=== PATIENT | female | born 1975 | race Caucasian/White ===

== ENCOUNTER 2016-08-04 23:43 | Emergency (ER) | payer MEDICAID ==
[~2016-08-04] VITALS: Ht 168.9 cm; Wt 83.6 kg
[~2016-08-04 23:43] MED LIST: AGM875T PO; ALBU2.5V4 IH; AMOX500T2 PO; ATEN50TA PO; CEFD300C3 PO; CEPH500C PO; CYCL10TA45 PO; CYCL10TA9 PO; DCS100C PO; DICL75TA2 PO; GABA-488 PO; HYDR-34 PO; HYDR-3583 PO; HYDR-3714 PO; HYDR115S2 PO; NITR-65 PO; ONDA8TAB13 PO; PANT40TA2 PO; PHEN100T17 PO; PHEN100T26 PO; PRD20T PO; QTP25T PO; RT-ALBUINH IH; SUCR1TAB36 PO; TOPI100T PO; TRAM50TA2 PO
[2016-08-05 01:53] LABS: BASOPHILS # (AUTO) 0.1 10^3/uL (0.0-0.1); BASOPHILS % (AUTO) 1 % (0-10); EOSINOPHILS # (AUTO) 0.1 10^3/uL (0.0-0.3); EOSINOPHILS % (AUTO) 1 % (0-10); LYMPHOCYTES # (AUTO) 2.2 X 10^3 (1.0-4.0); LYMPHOCYTES % (AUTO) 23 % (12-44); MEAN CORPUSCULAR HEMOGLOBIN 33 PG (25-34); MEAN CORPUSCULAR HGB CONC 36 G/DL (32-36); MEAN CORPUSCULAR VOLUME 91 FL (80-99); MONOCYTES # (AUTO) 0.7 X 10^3 (0.0-1.0); MONOCYTES % (AUTO) 8 % (0-12); NEUTROPHILS # (AUTO) 6.4 X 10^3 (1.8-7.8); NEUTROPHILS % (AUTO) 68 % (42-75); PLATELET COUNT 159 10^3/uL (130-400); RED CELL DISTRIBUTION WIDTH 12.3 % (10.0-14.5); WHITE BLOOD COUNT 9.5 10^3/uL (4.3-11.0)
[2016-08-05 02:15] LABS: ALANINE AMINOTRANSFERASE 35 U/L (0-55); ALBUMIN 4.4 G/DL (3.2-4.5); ALCOHOL 10 MG/DL (<10); ANION GAP 13 MMOL/L (5-14); ASPARTATE AMINO TRANSFERASE 28 U/L (5-34); BILIRUBIN,TOTAL 0.4 MG/DL (0.1-1.0); BLOOD UREA NITROGEN 12 MG/DL (7-18); BUN/CREATININE RATIO 16; CALCIUM 9.5 MG/DL (8.5-10.1); CARBON DIOXIDE 20 MMOL/L (21-32); CHLORIDE 108 MMOL/L (98-107); CREATININE SERUM 0.77 MG/DL (0.60-1.30); GFR ESTIMATED > 60; GLUCOSE 97 MG/DL (70-105); POTASSIUM 3.9 MMOL/L (3.6-5.0); SALICYLATE < 5.0 MG/DL (5.0-20.0); SODIUM 141 MMOL/L (135-145); TOTAL PROTEIN 7.1 G/DL (6.4-8.2)
[2016-08-05 02:25] LABS: ACETAMINOPHEN < 10 UG/ML (10-30)
[2016-08-05 04:15] LABS: BILIRUBIN,URINE NEGATIVE (NEGATIVE); KETONES,URINE NEGATIVE (NEGATIVE); LEUKOCYTE ESTERASE ,URINE 1+ (NEGATIVE); NITRITE,URINE NEGATIVE (NEGATIVE); PH,URINE 6 (5-9); PROTEIN,URINE NEGATIVE (NEGATIVE); UROBILINOGEN,URINE NORMAL (NORMAL)
[2016-08-05 04:21] LABS: WBC,URINE RARE /HPF
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
[2016-08-05 05:55] VITALS: BP 134/100
== END 2016-08-05 05:55 | disposition home or self-care (01) ==
LOC: EDUNIT# 23:43 → ER 23:47
DX: R45.851 Suicidal ideations (principal); M06.9 Rheumatoid arthritis, unspecified; Z79.82 Long term (current) use of aspirin; Z79.899 Other long term (current) drug therapy
CPT/HCPCS: 36415; 80053; 80306; 80320; 80329; 81000; 84443; 85025; 99285

== ENCOUNTER 2017-04-26 20:31 | Emergency (ER) | payer MEDICAID ==
--- OUTSIDE RECORDS SUMMARY | 2017-04-28 09:30 | XMS REPORT ---
Author Author CARLI FAIR [facility] Address [address] [place] [address] Care Team Providers Care Continuous Dryout Operator Name Role Phone CARLI FAIR Unavailable PROBLEMS Type Condition ICD9-CM Code AKS16-RO Code Onset Dates Condition Status SNOMED Code Problem Low back pain M54.5 Active 297394986 Problem Vitamin D deficiency E55.9 Active 13820215 Problem Chronic intractable headache, unspecified headache type R51 Active 24899224 Problem Barretts esophagus without dysplasia K22.70 Active 701319478 Problem Fatigue R53.83 Active 19175706 Problem Essential hypertension, hypertension with unspecified goal I10 Active 71433923 Problem Tobacco abuse Z72.0 Active 868886277 Problem Depression with anxiety F41.8 Active 771285374 Problem Lower abdominal pain R10.30 Active 55154551 Problem Frequent headaches R51 Active 74261945 Problem Screening breast examination Z12.39 Active 270870344 Problem Chronic diarrhea K52.9 Active 836525505 ALLERGIES Substance Reaction Event Type Date Status Imitrex Unknown Drug Allergy Mar, Active Erythromycin Base Unknown Drug Allergy Mar, Active Aspirin Unknown Drug Allergy Mar, Active Tramadol Unknown Drug Allergy Mar, Active SOCIAL HISTORY No smoking Hx information available PLAN OF CARE Activity Details Follow Up 4 Weeks Reason: med VITAL SIGNS Height 66 in 2016-03-21 Weight 192.5 lbs 2016-03-21 Temperature 99.2 degrees Fahrenheit 2016-03-21 Heart Rate 80 bpm 2016-03-21 Respiratory Rate 16 2016-03-21 BMI 31.07 kg/m2 2016-03-21 Blood pressure systolic 128 mmHg 2016-03-21 Blood pressure diastolic 82 mmHg 2016-03-21 MEDICATIONS Medication Instructions Dosage Frequency Start Date End Date Duration Status Clonazepam 0.5 MG Orally Twice a day pm 1 tablet Mar, 28 days Active Topamax 200 MG Orally Twice a day 1 tablet 12h Active Nicotine 21 MG/24HR Transdermal Once a day 1 patch to skin 24h Apr, 30 day(s) Active RESULTS Name Result Date Reference Range AMERITOX 2016-03-21 PROCEDURES Procedure Date Ordered Related Diagnosis Body Site Office Visit, Est Pt., Level 4 Mar 21, 2016 No Charge Mar 21, 2016 IMMUNIZATIONS No Known Immunizations
--- OUTSIDE RECORDS SUMMARY | 2017-04-28 09:30 | XMS REPORT ---
Author Author CARLI FAIR [facility] Address [address] [place] [address] Care Team Providers Care Power Saw Mechanic Name Role Phone CARLI FAIR Unavailable PROBLEMS Type Condition ICD9-CM Code FMA39-QD Code Onset Dates Condition Status SNOMED Code Problem Vitamin D deficiency E55.9 Active 52428741 Problem Low back pain M54.5 Active 028726759 Problem Chronic intractable headache, unspecified headache type R51 Active 15453713 Problem Barretts esophagus without dysplasia K22.70 Active 920274814 Problem Essential hypertension, hypertension with unspecified goal I10 Active 43803401 Problem Fatigue R53.83 Active 99541174 Problem Tobacco abuse Z72.0 Active 150673458 Problem Depression with anxiety F41.8 Active 697744492 Problem Screening breast examination Z12.39 Active 193356402 Problem Frequent headaches R51 Active 90570006 Problem Chronic diarrhea K52.9 Active 256635503 Problem Lower abdominal pain R10.30 Active 84167787 ALLERGIES Substance Reaction Event Type Date Status Imitrex Unknown Drug Allergy Apr, Active Erythromycin Base Unknown Drug Allergy Apr, Active Aspirin Unknown Drug Allergy Apr, Active Tramadol Unknown Drug Allergy Apr, Active SOCIAL HISTORY No smoking Hx information available PLAN OF CARE Activity Details Follow Up 4 Weeks Reason: Med VITAL SIGNS Height 66 in 2016-04-18 Weight 190.6 lbs 2016-04-18 Temperature 98.1 degrees Fahrenheit 2016-04-18 Heart Rate 80 bpm 2016-04-18 Respiratory Rate 18 2016-04-18 BMI 30.76 kg/m2 2016-04-18 Blood pressure systolic 110 mmHg 2016-04-18 Blood pressure diastolic 67 mmHg 2016-04-18 MEDICATIONS Medication Instructions Dosage Frequency Start Date End Date Duration Status Clonazepam 0.5 MG Orally Twice a day pm 1 tablet 28 days Active Topamax 200 MG Orally Twice a day 1 tablet 12h Active Pantoprazole Sodium 20 MG Orally Once a day 2 tablets 24h Active RESULTS No Results PROCEDURES Procedure Date Ordered Related Diagnosis Body Site Office Visit, Est Pt., Level 3 Apr 18, 2016 IMMUNIZATIONS No Known Immunizations
--- OUTSIDE RECORDS SUMMARY | 2017-04-28 09:31 | XMS REPORT ---
Author Author LEV CRUMP Organization [facility] Address [address] [place] [address] Care Team Providers Care Audiovisual Technician Name Role Phone LEV CRUMP Unavailable PROBLEMS Type Condition ICD9-CM Code OME85-CI Code Onset Dates Condition Status SNOMED Code Problem Vitamin D deficiency E55.9 Active 66190667 Problem Low back pain M54.5 Active 508586371 Problem Chronic intractable headache, unspecified headache type R51 Active 59422840 Problem Barretts esophagus without dysplasia K22.70 Active 373044770 Problem Essential hypertension, hypertension with unspecified goal I10 Active 44292133 Problem Fatigue R53.83 Active 84994739 Problem Tobacco abuse Z72.0 Active 280624633 Problem Depression with anxiety F41.8 Active 239050425 Problem Screening breast examination Z12.39 Active 434371051 Problem Frequent headaches R51 Active 15300951 Problem Chronic diarrhea K52.9 Active 767445166 Problem Lower abdominal pain R10.30 Active 74340840 ALLERGIES Substance Reaction Event Type Date Status Imitrex Unknown Drug Allergy May, Active Erythromycin Base Unknown Drug Allergy May, Active Aspirin Unknown Drug Allergy May, Active Tramadol Unknown Drug Allergy May, Active SOCIAL HISTORY Never Assessed PLAN OF CARE Activity Details Follow Up prn Reason: VITAL SIGNS Height 66 in 2016-05-25 Weight 188.4 lbs 2016-05-25 Temperature 98.4 degrees Fahrenheit 2016-05-25 Heart Rate 84 bpm 2016-05-25 Respiratory Rate 18 2016-05-25 BMI 30.41 kg/m2 2016-05-25 Blood pressure systolic 128 mmHg 2016-05-25 Blood pressure diastolic 74 mmHg 2016-05-25 MEDICATIONS Medication Instructions Dosage Frequency Start Date End Date Duration Status Clonazepam 0.5 MG Orally Twice a day pm 1 tablet 28 days Active Flonase Allergy Relief 50 MCG/ACT Nasally Once a day 1 spray in each nostril 24h May, 30 day(s) Active Topamax 200 MG Orally Twice a day 1 tablet 12h Active Cetirizine HCl 10 MG Orally Once a day 1 tablet 24h 24 May, 2016 May, 30 day(s) Active Pantoprazole Sodium 20 MG Orally Once a day 2 tablets 24h Active RESULTS Name Result Date Reference Range STREP A (IN HOUSE) 2016-05-25 STREP A negative Control + Lot # [id number] Exp date dec 17 PROCEDURES Procedure Date Ordered Result Body Site STREP A ASSAY W/OPTIC May 25, 2016 IMMUNIZATIONS No Known Immunizations MEDICAL (GENERAL) HISTORY Type Description Date Medical History hypertension Medical History post cholecystectomy symdrome 1990 Medical History thyroid disorder Medical History orthopeadic disorder scoliosis Medical History headache syndromes Medical History -- went in for ad D/C rec'd 4 inits of blood due to bleeding Medical History Lumbago Medical History Lumbago Medical History Displacement of lumbar intervertebral disc without myelopathy Medical History Barretts Esophagus Superior with EGD Colonoscopy Surgical History hysterectomy abnormal cells and fibroids 2011 Surgical History appendectomy 2012 Surgical History dilatation and curettage and dental surgery 2008 Surgical History cystocele repair 2014 Surgical History bladder surgery pelvic sling 2012 Surgical History Oophorectomy 2012 Surgical History dental surgery teeth extractions Surgical History EGD/Colonoscopy 2015 Hospitalization History Pnuemonia 1996
--- OUTSIDE RECORDS SUMMARY | 2017-04-28 09:31 | XMS REPORT | Continuity of Care Document ---
Author Author [facility] Address Unknown Phone Unavailable Allergies Active Description Code Type Severity Reaction Onset Reported/Identified Relationship to Patient Clinical Status Yes aspirin [id number] Drug Allergy Unknown PATIENT TAKES M 06/10/2007 Yes aspirin Drug Allergy N/A N/A 09/04/2012 Yes Erythromycin Base Drug Allergy N/A N/A 09/04/2012 Yes erythromycin base [id number] Drug Allergy Unknown N/A 09/21/2012 Yes sumatriptan [id number] Drug Allergy Unknown N/A 09/21/2012 Yes sumatriptan succinate [id number] Drug Allergy Unknown N/A 09/21/2012 Yes venom-wasp [id number] Drug Allergy Unknown N/A 10/21/2013 Yes wasp venom [id number] Drug Allergy Unknown N/A 10/21/2013 Yes tramadol Drug Allergy N/A N/A 02/11/2014 Yes tramadol [id number] Drug Allergy Unknown VOMITING 09/23/2014 Yes sumatriptan [id number] Drug Allergy Mild NAUSEA 08/01/2015 Yes sumatriptan succinate [id number] Drug Allergy Mild NAUSEA 08/01/2015 Medications There is no data. Problems Date Dx Coded Attending Type Code Diagnosis Diagnosed By 09/04/2012 719.47 PAIN- ANKLE 09/04/2012 719.47 PAIN- ANKLE 09/04/2012 SHRUTI MOURA DDS 719.47 PAIN- ANKLE 09/04/2012 MADL BRAKE OPERATOR SHEET METAL, CARLI L 719.47 PAIN- ANKLE 09/04/2012 MADL BRAKE OPERATOR SHEET METAL, CARLI L 719.47 PAIN- ANKLE 09/04/2012 MADL BRAKE OPERATOR SHEET METAL, CARLI L 719.47 PAIN- ANKLE 09/04/2012 MADL BRAKE OPERATOR SHEET METAL, CARLI L 719.47 PAIN- ANKLE 09/04/2012 MADL BRAKE OPERATOR SHEET METAL, CARLI L 719.47 PAIN- ANKLE 09/04/2012 MADL BRAKE OPERATOR SHEET METAL, CARLI L 719.47 PAIN- ANKLE 09/04/2012 KAMALJIT IANZACK 719.47 PAIN- ANKLE 09/22/2012 MILAGRO TO, DERRELL Padilla Ot 276.9 ELECTROLYT/FLUID DIS NEC 09/22/2012 MILAGRO TO, DERRELL Padilla Ot 305.1 TOBACCO USE DISORDER 09/22/2012 DERRELL HUMPHREY MD Ot 401.9 HYPERTENSION NOS 09/22/2012 DERRELL HUMPHREY MD Ot 530.81 ESOPHAGEAL REFLUX 09/22/2012 DERRELL HUMPHREY MD Ot 540.9 ACUTE APPENDICITIS NOS 06/07/2013 BLANK CRUM Ot 300.00 ANXIETY STATE NOS 06/07/2013 BLANK CRUM Ot 599.0 URIN TRACT INFECTION NOS 06/07/2013 BLANK CRUM Ot 719.41 JOINT PAIN-SHLDER 06/07/2013 BLANK CRUM Ot 719.45 JOINT PAIN-PELVIS 06/07/2013 BLANK CRUM Ot 723.1 CERVICALGIA 06/07/2013 BLANK CRUM Ot 729.1 MYALGIA AND MYOSITIS NOS 06/07/2013 BLANK CRUM Ot 729.5 PAIN IN LIMB 06/07/2013 BLANK CRUM Ot 784.0 HEADACHE 06/07/2013 BLANK CRUM Ot 789.09 ABDOMINAL PAIN, OTHER SPECIFIED SITE 06/07/2013 BLANK CRUM Ot 848.9 SPRAIN NOS 06/07/2013 BLANK CRUM Ot E000.8 OTHER EXTERNAL CAUSE STATUS 06/07/2013 BLANK CRUM Ot E849.0 ACCIDENT IN HOME 06/07/2013 BLANK CRUM Ot E928.9 ACCIDENT NOS 10/21/2013 JADA JOHANSEN BRAKE OPERATOR SHEET METAL Ot 989.5 TOXIC EFFECT VENOM 10/21/2013 JADA JOHANSEN BRAKE OPERATOR SHEET METAL Ot E905.3 HORNET/WASP/BEE STING 11/06/2013 JADA JOHANSEN BRAKE OPERATOR SHEET METAL Ot 521.00 UNSPEC DENTAL CARIES 11/06/2013 JADA JOHANSEN BRAKE OPERATOR SHEET METAL Ot 525.9 DENTAL DISORDER NOS 12/09/2013 BLANK CRUM Ot 300.00 ANXIETY STATE NOS 12/09/2013 BLANK CRUM Ot 305.1 TOBACCO USE DISORDER 12/09/2013 BLANK CRUM Ot 401.9 HYPERTENSION NOS 12/09/2013 BLANK CRUM Ot 465.9 ACUTE URI NOS 12/09/2013 BLANK CRUM Ot 530.81 ESOPHAGEAL REFLUX 12/09/2013 BLANK CRUM Ot 599.0 URIN TRACT INFECTION NOS 12/09/2013 BLANK CRUM Ot 780.60 FEVER, UNSPECIFIED 02/11/2014 MADL BRAKE OPERATOR SHEET METAL, CARLI L 599.0 URINARY TRACT INFECTION 02/11/2014 MADL BRAKE OPERATOR SHEET METAL, CARLI L 599.0 URINARY TRACT INFECTION 02/11/2014 MADL BRAKE OPERATOR SHEET METAL, CARLI L 599.0 URINARY TRACT INFECTION 02/11/2014 MADL BRAKE OPERATOR SHEET METAL, CARLI L 599.0 URINARY TRACT INFECTION 02/11/2014 MADL BRAKE OPERATOR SHEET METAL, CARLI L 599.0 URINARY TRACT INFECTION 02/11/2014 MADL BRAKE OPERATOR SHEET METAL, CARLI L 599.0 URINARY TRACT INFECTION 02/11/2014 KAMALJIT BRAKE OPERATOR SHEET METAL, ZACK A 599.0 URINARY TRACT INFECTION 04/01/2014 BLANK CRUM Ot 599.0 URIN TRACT INFECTION NOS 04/01/2014 BLANK CRUM Ot 724.4 LUMBOSACRAL NEURITIS NOS 04/01/2014 BLANK CRUM Ot 850.0 CONCUSSION W/O COMA 04/01/2014 BLANK CRUM Ot 959.01 HEAD INJURY, NOS 04/01/2014 BLANK CRUM Ot E000.8 OTHER EXTERNAL CAUSE STATUS 04/01/2014 BLANK CRUM Ot E849.0 ACCIDENT IN HOME 04/01/2014 BLANK CRUM Ot E885.9 FALL FROM SLIPPING, TRIPPING, OR STUMBLI 04/14/2014 CARLI FAIR APRN L 623.5 LEUKORRHEA NOT SPECIFIED INFECTIVE 04/14/2014 CIARAN FAIR APRNA L 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 04/14/2014 CIARAN FAIR APRNA L 724.2 BACK PAIN, LOWER 04/14/2014 MADL BRAKE OPERATOR SHEET METAL, CARLI L 623.5 LEUKORRHEA NOT SPECIFIED INFECTIVE 04/14/2014 MADL BRAKE OPERATOR SHEET METAL, CARLI L 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 04/14/2014 MADL BRAKE OPERATOR SHEET METAL, CARLI L 724.2 BACK PAIN, LOWER 04/14/2014 MADL BRAKE OPERATOR SHEET METAL, CARLI L 623.5 LEUKORRHEA NOT SPECIFIED INFECTIVE 04/14/2014 MADL BRAKE OPERATOR SHEET METAL, CARLI L 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 04/14/2014 MADL BRAKE OPERATOR SHEET METAL, CARLI L 724.2 BACK PAIN, LOWER 04/14/2014 MADL BRAKE OPERATOR SHEET METAL, CARLI L 623.5 LEUKORRHEA NOT SPECIFIED INFECTIVE 04/14/2014 MADL BRAKE OPERATOR SHEET METAL, CARLI L 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 04/14/2014 MADL BRAKE OPERATOR SHEET METAL, CARLI L 724.2 BACK PAIN, LOWER 04/14/2014 KAMALJIT IAN, ZACK A 623.5 LEUKORRHEA NOT SPECIFIED INFECTIVE 04/14/2014 KAMALJIT BRAKE OPERATOR SHEET METAL, ZACK A 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 04/14/2014 KAMALJIT IAN, ZACK A 724.2 BACK PAIN, LOWER 04/21/2014 MADL, 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 Ot 722.10 05/12/2014 MADL BRAKE OPERATOR SHEET METAL, CARLI L 789.09 ABDOMINAL PAIN OTHER SPECIFIED SITE 05/12/2014 MADL BRAKE OPERATOR SHEET METAL, CARLI L 789.09 ABDOMINAL PAIN OTHER SPECIFIED SITE 05/12/2014 KAMALJIT IAN, ZACK A 789.09 ABDOMINAL PAIN OTHER SPECIFIED SITE 05/26/2014 MADL, 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 Ot 722.10 07/07/2014 MADL BRAKE OPERATOR SHEET METAL, CARLI L 788.30 URINARY INCONTINENCE UNSPECIFIED 07/07/2014 KAMALJIT APRN, ZACK A 788.30 URINARY INCONTINENCE UNSPECIFIED 07/12/2014 KAMALJIT IAN, ZACK A 618.01 CYSTOCELE MIDLINE 07/12/2014 KAMALJIT IAN, ZACK A 789.00 ABDOMINAL PAIN UNSPECIFIED SITE 07/12/2014 ZACK MARI APRN V74.5 STD SCREEN 08/17/2014 MARTELL TO, TK Ontiveros Ot 724.1 08/17/2014 MARTELL TO, TK Ontiveros Ot 737.30 09/13/2014 TK MOURA MD Ot 724.1 09/13/2014 MARTELL TO, TK Ontiveros Ot 737.30 10/01/2014 FENECH DO, LASHON S Ot 564.00 UNSPEC CONSTIPATION 10/01/2014 FENECH DO, LASHON S Ot 618.2 UTEROVAG PROLAPS-INCOMPL 10/20/2014 FENECH DO, LASHON S Ot 618.01 10/20/2014 FENECH DO, LASHON S Ot V72.63 10/20/2014 FENECH DO, LASHON S Ot V74.8 12/08/2014 [facility] S Ot 611.72 12/15/2014 MICHELLE TO, ANNEL Gasca Ot 466.0 ACUTE BRONCHITIS 12/15/2014 MICHELLE TO, ANNEL Gasca Ot 473.9 CHRONIC SINUSITIS NOS 12/15/2014 MICHELLE TO, ANNEL Gasca Ot 786.2 COUGH 07/23/2015 RAMIN TO, GEORGE Padilla Ot F17.210 NICOTINE DEPENDENCE, CIGARETTES, UNCOMPL 07/23/2015 RAMIN TO, GEORGE Padilla Ot G43.909 MIGRAINE, UNSP, NOT INTRACTABLE, WITHOUT 07/26/2015 GEORGE FAUSTIN MD Ot G43.909 MIGRAINE, UNSP, NOT INTRACTABLE, WITHOUT 08/01/2015 ANNEL MARTINEZ MD Ot F17.210 NICOTINE DEPENDENCE, CIGARETTES, UNCOMPL 08/01/2015 ANNEL MARTINEZ MD Ot G43.909 MIGRAINE, UNSP, NOT INTRACTABLE, WITHOUT 08/01/2015 ANNEL MARTINEZ MD Ot R20.2 PARESTHESIA OF SKIN 08/03/2015 ANNEL MARTINEZ MD Ot F17.210 NICOTINE DEPENDENCE, CIGARETTES, UNCOMPL 08/03/2015 ANNEL MARTINEZ MD Ot G43.909 MIGRAINE, UNSP, NOT INTRACTABLE, WITHOUT 08/03/2015 ANNEL MARTINEZ MD Ot R20.2 PARESTHESIA OF SKIN 10/20/2015 CIARAN FAIRA L ENTRY LEVEL CIVIL ENGINEER Ot 722.10 LUMBAR DISC DISPLACEMENT 10/20/2015 TK MOURA MD Ot 724.1 PAIN IN THORACIC SPINE 10/20/2015 TK MOURA MD Ot 737.30 IDIOPATHIC SCOLIOSIS 10/20/2015 LASHON CALVO DO Ot 618.01 CYSTOCELE, MIDLINE 10/20/2015 LASHON CALVO DO S Ot V72.63 PRE-PROCEDURAL LABORATORY EXAMINATION 10/20/2015 LASHON CALVO DO S Ot V74.8 SCREEN-BACTERIAL DIS NEC 10/20/2015 LASHON CALVO DO S Ot 611.72 LUMP OR MASS IN BREAST 11/15/2015 LASHON CALVO DO S Ot N94.9 UNSP COND ASSOC W FEMALE GENITAL ORGANS 11/15/2015 LUBNA HOUSTON LASHON S Ot R14.0 ABDOMINAL DISTENSION (GASEOUS) 11/23/2015 CARLI FAIR ENTRY LEVEL CIVIL ENGINEER Ot Z12.31 ENCNTR SCREEN MAMMOGRAM FOR MALIGNANT NE 12/02/2015 RENÉE LEON DO Ot K21.9 GASTRO-ESOPHAGEAL REFLUX DISEASE WITHOUT 12/02/2015 RENÉE LEON DO Ot R19.7 DIARRHEA, UNSPECIFIED 12/02/2015 RENÉE LEON DO Ot Z01.818 ENCOUNTER FOR OTHER PREPROCEDURAL EXAMIN 12/06/2015 RENÉE LEON DO Ot K21.9 GASTRO-ESOPHAGEAL REFLUX DISEASE WITHOUT 12/06/2015 RENÉE LEON DO Ot R19.7 DIARRHEA, UNSPECIFIED 12/06/2015 RENÉE LEON DO Ot Z01.818 ENCOUNTER FOR OTHER PREPROCEDURAL EXAMIN 12/06/2015 RENÉE LEON DO Ot K20.9 ESOPHAGITIS, UNSPECIFIED 12/06/2015 RENÉE LEON DO Ot K29.70 GASTRITIS, UNSPECIFIED, WITHOUT BLEEDING 12/06/2015 RENÉE LEON DO Ot K44.9 DIAPHRAGMATIC HERNIA WITHOUT OBSTRUCTION 12/06/2015 RENÉE LEON DO Ot K52.9 NONINFECTIVE GASTROENTERITIS AND COLITIS 12/07/2015 RENÉE LEON DO Ot K20.9 ESOPHAGITIS, UNSPECIFIED 12/07/2015 RENÉE LEON DO Ot K29.70 GASTRITIS, UNSPECIFIED, WITHOUT BLEEDING 12/07/2015 RENÉE LEON DO Ot K44.9 DIAPHRAGMATIC HERNIA WITHOUT OBSTRUCTION 12/07/2015 LEON DO, RENÉE Soalno Ot K52.9 NONINFECTIVE GASTROENTERITIS AND COLITIS 12/16/2015 LEON DO, RENÉE Solano Ot K20.9 ESOPHAGITIS, UNSPECIFIED 12/16/2015 LEON DO, RENÉE Solano Ot K29.70 GASTRITIS, UNSPECIFIED, WITHOUT BLEEDING 12/16/2015 LEONRENÉE HURST DO Ot K44.9 DIAPHRAGMATIC HERNIA WITHOUT OBSTRUCTION 12/16/2015 LEON DO, RENÉE Solano Ot K52.9 NONINFECTIVE GASTROENTERITIS AND COLITIS 12/20/2015 CARLI FAIR Ot Z12.31 ENCNTR SCREEN MAMMOGRAM FOR MALIGNANT NE 02/08/2016 PREET GENTILE DO Ot F17.210 NICOTINE DEPENDENCE, CIGARETTES, UNCOMPL 02/08/2016 PREET GENTILE DO Ot J02.9 ACUTE PHARYNGITIS, UNSPECIFIED 02/08/2016 PREET GENTILE DO Ot J32.9 CHRONIC SINUSITIS, UNSPECIFIED 02/08/2016 PREET GENTILE DO Ot J40 BRONCHITIS, NOT SPECIFIED ACUTE OR CH 02/09/2016 PREET GENTILE DO Ot F17.210 NICOTINE DEPENDENCE, CIGARETTES, UNCOMPL 02/09/2016 PREET GENTILE DO Ot J02.9 ACUTE PHARYNGITIS, UNSPECIFIED 02/09/2016 PREET GENTILE DO Ot J32.9 CHRONIC SINUSITIS, UNSPECIFIED 02/09/2016 PREET GENTILE DO Ot J40 BRONCHITIS, NOT SPECIFIED ACUTE OR CH 02/10/2016 PREET GENTILE DO Ot F17.210 NICOTINE DEPENDENCE, CIGARETTES, UNCOMPL 02/10/2016 PREET GENTILE DO Ot J02.9 ACUTE PHARYNGITIS, UNSPECIFIED 02/10/2016 PREET GENTILE DO Ot J32.9 CHRONIC SINUSITIS, UNSPECIFIED 02/10/2016 PREET GENTILE DO, Ot J40 BRONCHITIS, NOT SPECIFIED ACUTE OR CH 02/13/2016 CARLI FAIR Ot 722.10 LUMBAR DISC DISPLACEMENT 02/13/2016 TK MOURA MD Ot 724.1 PAIN IN THORACIC SPINE 02/13/2016 TK MOURA MD Ot 737.30 IDIOPATHIC SCOLIOSIS 02/13/2016 LASHON CALVO DO Ot 618.01 CYSTOCELE, MIDLINE 02/13/2016 LASHON CALVO DO S Ot V72.63 PRE-PROCEDURAL LABORATORY EXAMINATION 02/13/2016 LASHON CALVO DO S Ot V74.8 SCREEN-BACTERIAL DIS NEC 02/13/2016 LASHON CALVO DO S Ot 611.72 LUMP OR MASS IN BREAST 02/13/2016 LASHON CALVO DO S Ot N94.9 UNSP COND ASSOC W FEMALE GENITAL ORGANS 02/13/2016 LASHON CALVO DO S Ot R14.0 ABDOMINAL DISTENSION (GASEOUS) 02/13/2016 CARLI FAIR ENTRY LEVEL CIVIL ENGINEER Ot Z12.31 ENCNTR SCREEN MAMMOGRAM FOR MALIGNANT NE 08/05/2016 MICHELLE TO, ANNEL Gasca Ot M06.9 RHEUMATOID ARTHRITIS, UNSPECIFIED 08/05/2016 MICHELLE TO, ANNEL Gasca Ot R45.851 SUICIDAL IDEATIONS 08/05/2016 MICHELLE TO, ANNEL Gasca Ot Z79.82 LONG-TERM (CURRENT) USE OF ASPIRIN 08/05/2016 MICHELLE TO, ANNEL Gasca Ot Z79.899 OTHER LONG-TERM (CURRENT) DRUG THERAPY 12/17/2016 CARLI FAIRP Ot 722.10 LUMBAR DISC DISPLACEMENT 12/17/2016 MARTELL TO, TK Ontiveros Ot 724.1 PAIN IN THORACIC SPINE 12/17/2016 MARTELL TO, TK Ontiveros Ot 737.30 IDIOPATHIC SCOLIOSIS 12/17/2016 LASHON CALVO DO S Ot 618.01 CYSTOCELE, MIDLINE 12/17/2016 LASHON CALVO DO S Ot V72.63 PRE-PROCEDURAL LABORATORY EXAMINATION 12/17/2016 LASHON CALVO DO S Ot V74.8 SCREEN-BACTERIAL DIS NEC 12/17/2016 LASHON CALVO DO S Ot 611.72 LUMP OR MASS IN BREAST 12/17/2016 LASHON CALVO DO S Ot N94.9 UNSP COND ASSOC W FEMALE GENITAL ORGANS 12/17/2016 LASHON CALVO DO S Ot R14.0 ABDOMINAL DISTENSION (GASEOUS) 12/17/2016 CARLI FAIR ENTRY LEVEL CIVIL ENGINEER Ot Z12.31 ENCNTR SCREEN MAMMOGRAM FOR MALIGNANT NE Procedures Code [place] [address] XRAY ANKLE L COMP MIN, 3 VIEWS 09/11/2012 21944 ROUTINE VENIPUNCTURE 02/11/2014 78988 UA W/ CULTURE IF INDICATED 02/11/2014 07994 URINE DRUG SCREEN (IN-HOUSE ) 02/11/2014 68785 CBC 02/11/2014 80107 CULTURE URINE 02/15/2014 05372 UA LONG DIP 02/22/2014 48316 ROUTINE VENIPUNCTURE 04/14/2014 60095 MRI SPINE (LUMBAR) W/O CONTRAST 04/14/2014 24719 CULTURE UROGENITAL 04/14/2014 UROLOGY Loreto George 04/14/2014 0209641 GFR CALC (RESULT ONLY) 04/14/2014 86778 CMP 04/14/2014 09102 TSH 04/14/2014 64502 CULTURE URINE 04/15/2014 61891 ROUTINE VENIPUNCTURE 05/11/2014 5158963 GFR CALC (RESULT ONLY) 05/11/2014 24769 CMP 05/11/2014 UROLOGY JAIDEN ESTRELLA 07/07/2014 54125 UA W/ CULTURE IF INDICATED 07/07/2014 55200 CULTURE URINE 07/08/2014 67564 UA W/ CULTURE IF INDICATED 07/12/2014 86746 TRICHOMONAS (IN-HOUSE) 07/12/2014 62920 CULTURE UROGENITAL 07/14/2014 29676 GC/CHLAM PROBE (STATE) 07/14/2014 Results Test Result Range Complete blood count (CBC) with automated white blood cell (WBC) differential - 02/08/16 12:20 Blood leukocytes automated count (number/volume) 7.3 10*3/uL 4.3-11.0 Blood erythrocytes automated count (number/volume) 4.98 10*6/uL 4.35-5.85 Venous blood hemoglobin measurement (mass/volume) 16.3 g/dL 11.5-16.0 Blood hematocrit (volume fraction) 45 % 35-52 Automated erythrocyte mean corpuscular volume 91 [foz_us] 80-99 Automated erythrocyte mean corpuscular hemoglobin (mass per erythrocyte) 33 pg 25-34 Automated erythrocyte mean corpuscular hemoglobin concentration measurement ( mass/volume) 36 g/dL 32-36 Automated erythrocyte distribution width ratio 12.3 % 10.0-14.5 Automated blood platelet count (count/volume) 138 10*3/uL 130-400 Automated blood platelet mean volume measurement 10.6 [foz_us] 7.4-10.4 Automated blood neutrophils/100 leukocytes 53 % 42-75 Automated blood lymphocytes/100 leukocytes 33 % 12-44 Blood monocytes/100 leukocytes 9 % 0-12 Automated blood eosinophils/100 leukocytes 4 % 0-10 Automated blood basophils/100 leukocytes 1 % 0-10 Blood neutrophils automated count (number/volume) 3.8 10*3 1.8-7.8 Blood lymphocytes automated count (number/volume) 2.4 10*3 1.0-4.0 Blood monocytes automated count (number/volume) 0.7 10*3 0.0-1.0 Automated eosinophil count 0.3 10*3/uL 0.0-0.3 Automated blood basophil count (count/volume) 0.1 10*3/uL 0.0-0.1 Comprehensive metabolic panel - 02/08/16 12:20 Serum or plasma sodium measurement (moles/volume) 139 mmol/L 135-145 Serum or plasma potassium measurement (moles/volume) 3.8 mmol/L 3.6-5.0 Serum or plasma chloride measurement (moles/volume) 111 mmol/L 98-107 Carbon dioxide 21 mmol/L 21-32 Serum or plasma anion gap determination (moles/volume) 7 mmol/L 5-14 Serum or plasma urea nitrogen measurement (mass/volume) 11 mg/dL 7-18 Serum or plasma creatinine measurement (mass/volume) 0.73 mg/dL 0.60-1.30 Serum or plasma urea nitrogen/creatinine mass ratio 15 NRG Serum or plasma creatinine measurement with calculation of estimated glomerular filtration rate > NRG Serum or plasma glucose measurement (mass/volume) 84 mg/dL 70-105 Serum or plasma calcium measurement (mass/volume) 9.1 mg/dL 8.5-10.1 Serum or plasma total bilirubin measurement (mass/volume) 0.4 mg/dL 0.1-1.0 Serum or plasma alkaline phosphatase measurement (enzymatic activity/volume) 147 U/L 40-136 Serum or plasma aspartate aminotransferase measurement (enzymatic activity/ volume) 23 U/L 5-34 Serum or plasma alanine aminotransferase measurement (enzymatic activity/volume ) 34 U/L 0-55 Serum or plasma protein measurement (mass/volume) 7.2 g/dL 6.4-8.2 Serum or plasma albumin measurement (mass/volume) 4.5 g/dL 3.2-4.5 Complete blood count (CBC) with automated white blood cell (WBC) differential - 08/05/16 01:43 Blood leukocytes automated count (number/volume) 9.5 10*3/uL 4.3-11.0 Blood erythrocytes automated count (number/volume) 5.30 10*6/uL 4.35-5.85 Venous blood hemoglobin measurement (mass/volume) 17.5 g/dL 11.5-16.0 Blood hematocrit (volume fraction) 48 % 35-52 Automated erythrocyte mean corpuscular volume 91 [foz_us] 80-99 Automated erythrocyte mean corpuscular hemoglobin (mass per erythrocyte) 33 pg 25-34 Automated erythrocyte mean corpuscular hemoglobin concentration measurement ( mass/volume) 36 g/dL 32-36 Automated erythrocyte distribution width ratio 12.3 % 10.0-14.5 Automated blood platelet count (count/volume) 159 10*3/uL 130-400 Automated blood platelet mean volume measurement 11.0 [foz_us] 7.4-10.4 Automated blood neutrophils/100 leukocytes 68 % 42-75 Automated blood lymphocytes/100 leukocytes 23 % 12-44 Blood monocytes/100 leukocytes 8 % 0-12 Automated blood eosinophils/100 leukocytes 1 % 0-10 Automated blood basophils/100 leukocytes 1 % 0-10 Blood neutrophils automated count (number/volume) 6.4 10*3 1.8-7.8 Blood lymphocytes automated count (number/volume) 2.2 10*3 1.0-4.0 Blood monocytes automated count (number/volume) 0.7 10*3 0.0-1.0 Automated eosinophil count 0.1 10*3/uL 0.0-0.3 Automated blood basophil count (count/volume) 0.1 10*3/uL 0.0-0.1 Comprehensive metabolic panel - 08/05/16 01:43 Serum or plasma sodium measurement (moles/volume) 141 mmol/L 135-145 Serum or plasma potassium measurement (moles/volume) 3.9 mmol/L 3.6-5.0 Serum or plasma chloride measurement (moles/volume) 108 mmol/L 98-107 Carbon dioxide 20 mmol/L 21-32 Serum or plasma anion gap determination (moles/volume) 13 mmol/L 5-14 Serum or plasma urea nitrogen measurement (mass/volume) 12 mg/dL 7-18 Serum or plasma creatinine measurement (mass/volume) 0.77 mg/dL 0.60-1.30 Serum or plasma urea nitrogen/creatinine mass ratio 16 NRG Serum or plasma creatinine measurement with calculation of estimated glomerular filtration rate > NRG Serum or plasma glucose measurement (mass/volume) 97 mg/dL 70-105 Serum or plasma calcium measurement (mass/volume) 9.5 mg/dL 8.5-10.1 Serum or plasma total bilirubin measurement (mass/volume) 0.4 mg/dL 0.1-1.0 Serum or plasma alkaline phosphatase measurement (enzymatic activity/volume) 134 U/L 40-136 Serum or plasma aspartate aminotransferase measurement (enzymatic activity/ volume) 28 U/L 5-34 Serum or plasma alanine aminotransferase measurement (enzymatic activity/volume ) 35 U/L 0-55 Serum or plasma protein measurement (mass/volume) 7.1 g/dL 6.4-8.2 Serum or plasma albumin measurement (mass/volume) 4.4 g/dL 3.2-4.5 Serum or plasma salicylates measurement (mass/volume) - 08/05/16 01:43 Serum or plasma salicylates measurement (mass/volume) < mg/dL 5.0-20.0 Serum or plasma acetaminophen measurement (mass/volume) - 08/05/16 01:43 Serum or plasma acetaminophen measurement (mass/volume) < ug/mL 10-30 Serum or plasma ethanol measurement (mass/volume) - 08/05/16 01:43 Serum or plasma ethanol measurement (mass/volume) 10 mg/dL <10 Serum or plasma thyrotropin measurement by detection limit <=0.05 miu/l (units/ volume) - 08/05/16 01:43 Serum or plasma thyrotropin measurement by detection limit <=0.05 miu/l (units/ volume) 0.69 u[iU]/mL 0.35-4.94 Complete urinalysis with reflex to culture - 08/05/16 04:04 Urine color determination YELLOW NRG Urine clarity determination CLEAR NRG Urine pH measurement by test strip 6 5-9 Specific gravity of urine by test strip 1.015 1.016- 1.022 Urine protein assay by test strip, semi-quantitative NEGATIVE NEGATIVE Urine glucose detection by automated test strip NEGATIVE NEGATIVE Erythrocytes detection in urine sediment by light microscopy NEGATIVE NEGATIVE Urine ketones detection by automated test strip NEGATIVE NEGATIVE Urine nitrite detection by test strip NEGATIVE NEGATIVE Urine total bilirubin detection by test strip NEGATIVE NEGATIVE Urine urobilinogen measurement by automated test strip (mass/volume) NORMAL NORMAL Urine leukocyte esterase detection by dipstick 1+ NEGATIVE Automated urine sediment erythrocyte count by microscopy (number/high power field) NONE NRG Automated urine sediment leukocyte count by microscopy (number/high power field ) RARE NRG Bacteria detection in urine sediment by light microscopy NEGATIVE NRG Squamous epithelial cells detection in urine sediment by light microscopy 5-10 NRG Crystals detection in urine sediment by light microscopy NONE NRG Casts detection in urine sediment by light microscopy NONE NRG Mucus detection in urine sediment by light microscopy NEGATIVE NRG Complete urinalysis with reflex to culture NO NRG Urine drug screening test - 08/05/16 04:04 Urine phencyclidine detection by screening method NEGATIVE NEGATIVE Urine benzodiazepines detection by screening method NEGATIVE NEGATIVE Urine cocaine detection NEGATIVE NEGATIVE Urine amphetamines detection by screening method NEGATIVE NEGATIVE Urine methamphetamine detection by screening method NEGATIVE NEGATIVE Urine cannabinoids detection by screening method NEGATIVE NEGATIVE Urine opiates detection by screening method NEGATIVE NEGATIVE Urine barbiturates detection NEGATIVE NEGATIVE Screening urine tricyclic antidepressants detection NEGATIVE NEGATIVE Urine methadone detection by screening method NEGATIVE NEGATIVE Urine oxycodone detection NEGATIVE NEGATIVE Urine propoxyphene detection NEGATIVE NEGATIVE Encounters ACCT No. Visit Date/Time Discharge Status Pt. Type Provider Facility Loc./Unit Complaint [id number] 07/12/2014 13:55:00 07/12/2014 23:59:59 CLS Outpatient ZACK MARI APRN Frankie [id number] 07/07/2014 10:50:00 07/07/2014 23:59:59 CLS Outpatient CARLI FAIR APRN L [id number] 05/12/2014 11:15:00 05/12/2014 23:59:59 CLS Outpatient ARAL CIARAN SOSAA L [id number] 05/11/2014 11:52:00 05/11/2014 23:59:59 CLS Outpatient CARLI FAIR APRN L [id number] 04/14/2014 08:42:00 04/14/2014 23:59:59 CLS Outpatient MADL CIARAN SOSAA L [id number] 02/22/2014 09:13:00 02/22/2014 23:59:59 CLS Outpatient ARAL CIARAN SOSAA L [id number] 02/11/2014 14:51:00 02/11/2014 23:59:59 CLS Outpatient CARLI FAIR APRN [id number] 11/11/2013 09:02:00 11/11/2013 23:59:59 CLS Outpatient SHRUTI MOURA DDS [id number] 09/11/2012 12:21:00 Document Registration [id number] 09/04/2012 17:34:00 Document Registration [id number] 04/26/2017 20:33:00 04/26/2017 21:08:00 DIS Emergency TRINY TO, DASH Ontiveros [facility] ER HEAD PAIN [id number] 08/04/2016 23:47:00 08/05/2016 05:55:00 DIS Emergency MICHELLE TO, ANNEL Gasca [facility] ER NERVOUS BREAK DOWN SUICIDE ATTEMPT [id number] 02/08/2016 11:32:00 02/08/2016 13:07:00 DIS Emergency PREET GENTILE DO [facility] ER SINUS/CHEST CONGESTION SORE THROAT [id number] 12/06/2015 11:39:00 12/06/2015 15:50:00 DIS Outpatient RENÉE LEON DO [facility] SDC DIARRHEA;REFLUX [id number] 12/02/2015 05:42:00 12/02/2015 11:26:00 DIS Outpatient RENÉE LEON DO [facility] PREOP DIARRHEA;REFLUX [id number] 11/21/2015 10:46:00 11/21/2015 23:59:59 CLS Outpatient CARLI FAIR Colt EN[employer] [facility] RAD SCREENING BREAST EXAMINATION [id number] 10/20/2015 13:23:00 10/20/2015 23:59:59 CLS Outpatient LASHON CALVO DO S [facility] RAD PELVIC CRAMPING [id number] 08/01/2015 02:42:00 08/01/2015 05:17:00 DIS Emergency ANNEL MARTINEZ MD [facility] ER MIGRANE [id number] 07/23/2015 07:14:00 07/23/2015 08:55:00 DIS Emergency GEORGE FAUSTIN MD [facility] ER MIGRAINE [id number] 12/15/2014 18:42:00 12/15/2014 20:26:00 DIS Emergency ANNEL MARTINEZ MD [facility] ER COUGH,CONGESTION,SOA [id number] 11/09/2014 10:48:00 11/09/2014 23:59:59 CLS Outpatient LASHON CALVO DO [facility] RAD [facility] [place] [id number] 09/30/2014 06:00:00 10/01/2014 11:22:00 DIS Outpatient LASHON CALVO DO Via [facility] SDC CYSTOCELE [id number] 09/23/2014 09:27:00 09/23/2014 23:59:59 CLS Outpatient LASHON CALVO DO [facility] PREOP CYSTOCELE [id number] 08/11/2014 09:46:00 08/11/2014 23:59:59 CLS Outpatient TK MOURA MD [facility] RAD THORACALGIA [id number] 04/19/2014 08:03:00 04/19/2014 23:59:59 CLS Outpatient MADL, 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 [facility] RAD SPINAL STENOSIS L3 L4 BULGING BACK PAIN [id number] 04/01/2014 17:23:00 04/01/2014 20:08:00 DIS Emergency BLANK CRUM [facility] ER FALL,BACK PAIN [id number] 12/09/2013 16:52:00 12/09/2013 19:29:00 DIS Emergency BLANK CRUM [facility] ER VOMITING FEVER [id number] 11/06/2013 16:26:00 11/06/2013 18:10:00 DIS Emergency JADA JOHANSEN APRN [facility] ER DENTAL PAIN [id number] 10/21/2013 15:04:00 10/21/2013 16:07:00 DIS Emergency JADA JOHANSEN APRN [facility] ER WASP STING, SOA [id number] 06/07/2013 16:58:00 06/07/2013 20:20:00 DIS Emergency SHARON CRUMTCHEN L [facility] ER LEFT SIDE PAIN [id number] 09/21/2012 09:24:00 09/22/2012 10:45:00 DIS Outpatient MILAGRO TO, DERRELL Padilla [facility] APPENDICITIS
--- OUTSIDE RECORDS SUMMARY | 2017-04-28 09:31 | XMS REPORT ---
Author Author CARLI FAIR [facility] Address [address] [place] [address] Care Team Providers Care Balance Truer Name Role Phone CARLI FAIR Unavailable PROBLEMS Type Condition ICD9-CM Code NIN28-ZR Code Onset Dates Condition Status SNOMED Code Problem Vitamin D deficiency E55.9 Active 57915971 Problem Low back pain M54.5 Active 335863539 Problem Chronic intractable headache, unspecified headache type R51 Active 25690440 Problem Barretts esophagus without dysplasia K22.70 Active 989150591 Problem Essential hypertension, hypertension with unspecified goal I10 Active 67557542 Problem Fatigue R53.83 Active 49664532 Problem Tobacco abuse Z72.0 Active 014827937 Problem Depression with anxiety F41.8 Active 808202469 Problem Screening breast examination Z12.39 Active 250782729 Problem Frequent headaches R51 Active 05935732 Problem Chronic diarrhea K52.9 Active 941920746 Problem Lower abdominal pain R10.30 Active 11324878 ALLERGIES Substance Reaction Event Type Date Status Imitrex Unknown Drug Allergy May, Active Erythromycin Base Unknown Drug Allergy May, Active Aspirin Unknown Drug Allergy May, Active Tramadol Unknown Drug Allergy May, Active SOCIAL HISTORY Never Assessed PLAN OF CARE Activity Details Follow Up 3 Months Reason:[facility] VITAL SIGNS Height 66 in 2016-05-31 Weight 189.3 lbs 2016-05-31 Temperature 98.2 degrees Fahrenheit 2016-05-31 Heart Rate 90 bpm 2016-05-31 Respiratory Rate 20 2016-05-31 BMI 30.55 kg/m2 2016-05-31 Blood pressure systolic 120 mmHg 2016-05-31 Blood pressure diastolic 70 mmHg 2016-05-31 MEDICATIONS Medication Instructions Dosage Frequency Start Date End Date Duration Status Clonazepam 0.5 MG Orally Twice a day pm 1 tablet 28 days Active Topamax 200 MG Orally Twice a day 1 tablet 12h Active Flonase Allergy Relief 50 MCG/ACT Nasally Once a day 1 spray in each nostril 24h May, 30 day(s) Active Pantoprazole Sodium 20 MG Orally Once a day 2 tablets 24h Active Cetirizine HCl 10 MG Orally Once a day 1 tablet 24h May, May, 30 day(s) Active Clobetasol Propionate 0.05 % Externally Twice a day 1 application to affected area 12h May, Active RESULTS No Results PROCEDURES No Known procedures IMMUNIZATIONS No Known Immunizations MEDICAL (GENERAL) HISTORY [...] disc without myelopathy Medical History Barretts Esophagus Rippey with EGD Colonoscopy Surgical History hysterectomy abnormal cells and fibroids 2011 Surgical History appendectomy 2012 Surgical History dilatation and curettage and dental surgery 2008 Surgical History cystocele repair 2014 Surgical History bladder surgery pelvic sling 2012 Surgical History Oophorectomy 2012 Surgical History dental surgery teeth extractions Surgical History EGD/Colonoscopy 2015 Hospitalization History Pnuemonia 1996
== END 2017-04-26 21:08 | disposition left against medical advice (07) ==
LOC: EDUNIT# 20:31 → ER 20:33
DX: R51 Headache (principal)

== ENCOUNTER → 2017-05-07 | Outpatient (CLI) | payer MEDICAID ==
--- NOTE | 2017-05-07 08:41 | Diagnostic Imaging Report ---
Clinical indication: Patient with frontal and lower back of head headache for a month and a half. EXAM: Axial CT scan of brain performed without IV contrast. COMPARISON: Head CT without contrast dated 08/01/2015. FINDINGS: There is no evidence of acute cerebral infarct, intracranial hemorrhage, or gross mass effect. There is normal balbuena-white matter distinction. The brain parenchymal volume appears appropriate for patient's age. There is no significant midline shift or herniation. Again seen mild atherosclerotic disease involving the bilateral cavernous carotid arteries. There is no evidence of hydrocephalus. The basal cisterns are unremarkable. The skull, extracranial soft tissue, and orbits are unremarkable. The paranasal sinuses are unremarkable. IMPRESSION: Unremarkable CT scan of the brain for age. Dictated by: Dictated on workstation # [id number]
== END ==
LOC: RAD 08:18
PROVIDERS: ATTEND Nurse Practitioner Family
DX: R51 Headache (principal)
CPT/HCPCS: 70450

== ENCOUNTER → 2017-05-31 | Outpatient (CLI) | payer MEDICAID ==
[~2017-05-31] MED LIST changes: +IOHEXOL 350 MG/ML 100 ML (OMNIPAQUE 350) VIAL IV ONE; +NS 250 ML (IVPB) BAG IV ONE
--- NOTE | 2017-05-31 12:18 | Diagnostic Imaging Report ---
PROCEDURE: CT abdomen and pelvis with and without contrast. TECHNIQUE: Precontrast acquisitions were acquired through the abdomen and pelvis. Multiple contiguous axial images were obtained through the abdomen and pelvis after the administration of intravenous contrast. INDICATION: Abdominal pain and cramping. Comparison is made with prior exam from 10/20/2015. FINDINGS: The lung bases are free of acute infiltrates. Hyperenhancing lesion in the liver appears stable and again most consistent with a hemangioma. There is generalized low density throughout the liver consistent with hepatic steatosis. The gallbladder is surgically absent. The pancreas and spleen are unremarkable. No adrenal mass is identified. Previously noted nonobstructing calculus in upper pole right kidney is again noted. The aorta is nonaneurysmal. The bowel loops are normal caliber. No obstruction is seen. There is sigmoid diverticulosis without evidence of acute diverticulitis. There is no ascites. The bladder is unremarkable. No inflammatory process is seen. IMPRESSION: Stable CT of the abdomen and pelvis when compared with prior exam from 10/20/2015. There is uncomplicated diverticulosis. There is stable hepatic steatosis and nonobstructing right renal calculus. No acute feature is seen. Dictated by: Dictated on workstation # [id number]
== END ==
LOC: RAD 11:20
PROVIDERS: ATTEND Obstetrics & Gynecology
DX: K57.30 Diverticulosis of large intestine without perforation or abscess without bleeding (principal); K76.0 Fatty (change of) liver, not elsewhere classified; N20.0 Calculus of kidney; Z90.49 Acquired absence of other specified parts of digestive tract
CPT/HCPCS: 74178

== ENCOUNTER 2018-07-28 09:24 | Emergency (ER) | payer MEDICAID ==
[~2018-07-28] VITALS: Ht 170.2 cm; Wt 95.7 kg
[~2018-07-28 09:24] MED LIST changes: -IOHEXOL 350 MG/ML 100 ML (OMNIPAQUE 350) VIAL IV ONE; -NS 250 ML (IVPB) BAG IV ONE
--- OUTSIDE RECORDS SUMMARY | 2018-07-28 09:29 | XMS REPORT ---
Author Author RICHARDSON FONTENOT Organization [facility] Address [address] [place] [address] Care Team Providers Care Analyst Sales Name Role Phone CLAUDETTEKINSEY RICHARDSON Unavailable PROBLEMS Type Condition ICD9-CM Code [id number] Code Onset Dates Condition Status SNOMED Code Problem Frequent headaches R51 Active 46526155 Problem Low back pain M54.5 Active 238067248 Problem Vitamin D deficiency E55.9 Active 98327252 Problem Barretts esophagus without dysplasia K22.70 Active 648955326 Problem Essential hypertension, hypertension with unspecified goal I10 Active 18114341 Problem Radiculopathy of cervical region M54.12 Active 03555186 Problem PTSD (post-traumatic stress disorder) F43.10 Active 35206499 Problem Chronic diarrhea K52.9 Active 886790114 Problem Lower abdominal pain R10.30 Active 16909760 Problem Tobacco abuse Z72.0 Active 846360251 Problem Depression with anxiety F41.8 Active 851722328 ALLERGIES Substance Reaction Event Type Date Status Imitrex heart racing, sob Drug Allergy Nov, Active Erythromycin Base heart racing, sob Drug Allergy Nov, Active Aspirin unsure, age 9 and in hospital afterward Drug Allergy Nov, Active Tramadol heart racing, sob Drug Allergy Nov, Active ENCOUNTERS Encounter Location Date Diagnosis [facility] [id number] [address] Dec, [facility] [address] [address] Nov, PTSD (post-traumatic stress disorder) F43.10 [facility] [id number] [address] Nov, Radiculopathy of cervical region M54.12 [facility] [address] [place] [address] 14 Nov, 2017 Cervical radiculopathy M54.12 [facility] [address] [address] 10 Nov, 2017 Cervical radiculopathy M54.12 [facility] [address] [address] 10 Nov, 2017 [facility] [address] [id number] Oct, Dental examination Z01.20 and Dental caries K02.9 [place] [address] [address] Oct, Cervical radiculopathy M54.[address] [facility] [address] [address] Sep, Gastroenteritis K52.[address] [facility] [address] [address] July, Fungal rash of torso B36.9 [place] [address] [address] May, [place] [address] [address] Apr, Worst headache of life R51 and Pain aggravated by breathing R52 [place] [address] [address] Apr, Pelvic pain R10.2 [place] [address] [address] Apr, Bronchitis J40 [place] [address] [address] Mar, Low back pain M54.5 [facility] [address] [address] Jan, Viral gastroenteritis A08.4 [facility] [id number] [place] [address] Dec, Bronchitis J40 [place] [address] [address] May, Barretts esophagus without dysplasia K22.70 ; Depression with anxiety F41.8 and Eczema of both upper extremities L30.9 [facility] [place] [address] [address] May, Sore throat J02.9 and Acute non-recurrent pansinusitis J01.40 [place] [address] [address] Apr, Barretts esophagus without dysplasia K22.70 and Depression with anxiety F41.8 [place] [address] [address] Mar, Barretts esophagus without dysplasia K22.70 ; Tobacco abuse Z72.0 and Depression with anxiety F41.8 [place] [id number] [place] [address] Jan, Barretts esophagus without dysplasia K22.70 ; Tobacco abuse Z72.0 and Depression with anxiety F41.8 [facility] [place] [id number] [place] [address] 04 Jan, 2016 Acute upper respiratory infection, unspecified J06.9 [place] [id number] [place] [address] Oct, Essential hypertension, hypertension with unspecified goal I10 ; Frequent headaches R51 ; Vitamin D deficiency E55.9 ; Screening breast examination Z12.39 ; Chronic diarrhea K52.9 and Lower abdominal pain R10.30 [place] [id number] [place] [address] July, Essential hypertension, hypertension with unspecified goal I10 ; Frequent headaches R51 ; Vitamin D deficiency E55.9 ; Chronic intractable headache, unspecified headache type R51 and Low back pain M54.5 [facility] [address] [address] July, [facility] [address] [place] [address] July, Essential hypertension, hypertension with unspecified goal I10 and Fatigue R53.83 [facility] [id number] [place] [address] Jun, Frequent headaches R51 [facility] [id number] [place] [address] 14 Jun, 2014 [facility] [id number] [place] [address], [place] [address] Jun, [facility] [id number] [place] [address], [place] [address] May, [facility] [id number] [place] [address], [place] [address] May, [facility] [address] [address] May, [facility] [address] [place] [address], [place] [address] May, [facility] [address] [address] May, [facility] [address] [address] May, [facility] [address] [address] Apr, [facility] [id number] [place] [address] Apr, [facility] [address] [address] Apr, [facility] [address] [address] Apr, [facility] [place] [facility] [address] [id number] [place] [address] 16 Apr, 2014 [facility] [place] [facility] [address] [id number] [place] [address] 16 Apr, 2014 [facility] [place] [facility] [address] [id number] [place] [address] 16 Apr, 2014 [facility] [place] [facility] [address] [id number] [place] [address] 16 Apr, 2014 [facility] [place] [facility] [address] [id number] [place] [address] 16 Apr, 2014 [facility] [place] [facility] [address] [id number] [place] [address] 15 Apr, 2014 [facility] [place] [facility] [address] [id number] [place] [address] 14 Apr, 2014 [facility] [place] [facility] [address] [id number] [place] [address] 14 Apr, 2014 [facility] [place] [facility] [address] [id number] [place] [address] Jan, [facility] [place] [facility] [address] [id number] [place] [address] Jan, [facility] [place] [facility] [address] [id number] [place] [address] Jan, [facility] [place] [facility] [address] [id number] [address] 24 Jan, 2014 [facility] [place] [facility] [address] [id number] [place] [address] Jan, [facility] [place] [facility] [address] [id number] [place] [address] 14 Jan, 2014 [facility] [place] [facility] [address] [id number] [place] [address] Jan, [facility] [place] [facility] [address] [facility] [id number] [place] [address] Jan, [facility] [address] [facility] [id number] [place] [address] Jan, [facility] [address] [facility] [id number] [address] Jan, [facility] [address] [facility] [id number] [place] [address] Aug, [facility] [address] [facility] [id number] [place] [address] Aug, IMMUNIZATIONS No Known Immunizations SOCIAL HISTORY Never Assessed REASON FOR VISIT BH intake- AB/MA PLAN OF CARE Activity Details Follow Up 4 Weeks Reason: VITAL SIGNS Height 66 in 2017-12-23 Weight 197.2 lbs 2017-12-23 Heart Rate 90 bpm 2017-12-23 Respiratory Rate 20 2017-12-23 BMI 31.83 kg/m2 2017-12-23 Blood pressure systolic 122 mmHg 2017-12-23 Blood pressure diastolic 98 mmHg 2017-12-23 MEDICATIONS Medication Instructions Dosage Frequency Start Date End Date Duration Status Amitriptyline HCl 50 MG Orally Once a day 0.5 tablet nightly for one week then take full tablet nightly 24h Nov, 30 day(s) Active Albuterol Sulfate (2.5 MG/3ML) 0.083% Inhalation every 6 hrs 3 ml as needed 6h Apr, Active Cyclobenzaprine HCl 10 mg Orally Three times a day 1 tablet as needed 8h 14 Nov, 2017 Active Ibuprofen 200 MG Orally Three times a day 1 tablet with food or milk as needed 8h Active Ondansetron HCl 4 MG Orally every 4 hrs 1 tablet as needed 4h Sep, 5 days Active Naproxen 250 MG Orally daily 1 tablet 24h Active RESULTS No Results PROCEDURES No Known procedures INSTRUCTIONS MEDICATIONS ADMINISTERED No Known Medications MEDICAL (GENERAL) HISTORY Type Description Date Medical History hypertension Medical History post cholecystectomy symdrome 1990 Medical History orthopeadic disorder scoliosis Medical History headache syndromes Medical History -- went in for ad D/C rec'd 4 inits of blood due to bleeding Medical History Lumbago Medical History Displacement of lumbar intervertebral disc without myelopathy Medical History Barretts Esophagus [place]allow[place] with EGD Colonoscopy Medical History back fracture 2014 Surgical History hysterectomy abnormal cells and fibroids 2011 Surgical History appendectomy 2012 Surgical History dilatation and curettage and dental surgery 2009 Surgical History cystocele repair 2014 Surgical History bladder surgery pelvic sling 2012 Surgical History Oophorectomy 2013 Surgical History dental surgery teeth extractions Surgical History EGD/Colonoscopy 2016 Hospitalization History Pnuemonia 1996
--- OUTSIDE RECORDS SUMMARY | 2018-07-28 09:29 | XMS REPORT ---
Author Author RICHARDSON FONTENOT Organization [facility] [place] Address [address] [place] [address] Care Team Providers Care Product Marketing Programs Manager Name Role Phone CLAUDETTEKINSEY RICHARDSON Unavailable PROBLEMS Type Condition ICD9-CM Code EFF55-NS Code Onset Dates Condition Status SNOMED Code Problem Frequent headaches R51 Active 68420249 Problem Low back pain M54.5 Active 259552587 Problem Vitamin D deficiency E55.9 Active 14553120 Problem Barretts esophagus without dysplasia K22.70 Active 712656175 Problem Essential hypertension, hypertension with unspecified goal I10 Active 47085922 Problem Radiculopathy of cervical region M54.12 Active 67154136 Problem PTSD (post-traumatic stress disorder) F43.10 Active 87709610 Problem Chronic diarrhea K52.9 Active 144686750 Problem Lower abdominal pain R10.30 Active 77049327 Problem Tobacco abuse Z72.0 Active 156503103 Problem Depression with anxiety F41.8 Active 865916474 ALLERGIES Substance Reaction Event Type Date Status Imitrex heart racing, sob Drug Allergy Jan, Active Erythromycin Base heart racing, sob Drug Allergy Jan, Active Aspirin unsure, age 9 and in hospital afterward Drug Allergy Jan, Active Tramadol heart racing, sob Drug Allergy Jan, Active ENCOUNTERS Encounter Location Date Diagnosis [facility] [place] [id number] [address] Apr, [facility] [place] [address] [id number], [place] [address] Mar, [facility] [place] [id number] [address] Mar, [facility] [place] [address] [id number] [address] Jan, PTSD (post-traumatic stress disorder) F43.10 [facility] [place] [id number] [place] [address] 78653- 5769 24 Nov, 2017 PTSD (post-traumatic stress disorder) F43.10 [facility] [place] [id number] [place] [address] 37408- 0167 18 Nov, 2017 Radiculopathy of cervical region M54.12 [facility] [place] [address] [address]- [address]32 14 Nov, 2017 Cervical radiculopathy M54.12 [facility] [place] [id number] [place] [address] 85180- 0924 10 Nov, 2017 Cervical radiculopathy M54.12 [facility] [place] [id number] [place] [address] 84547- 0177 10 Nov, 2017 [facility] [address] [id number] Oct, Dental examination Z01.20 and Dental caries K02.9 [facility] [place] [id number] [place] [address] 62580- 7205 Oct, Cervical radiculopathy M54.12 [facility] [id number] [place] [address] 41902 -5407 Sep, Gastroenteritis K52.9 [facility] IN [facility] [id number] [place] [address] 90286 -0206 July, Fungal rash of torso B36.9 [facility] [place] [id number] [place] [address] 80745- 5095 May, [place] [address] 36473- 7102 Apr, Worst headache of life R51 and Pain aggravated by breathing R52 [place] [id number] [place] [address] 74825- 0512 Apr, Pelvic pain R10.2 [place] [address] [place] [address] [address] 2174 Apr, Bronchitis J40 [facility] [place] [address] 23494- 4096 Mar, Low back pain M54.5 [facility] WALK IN [place] [address] 99125 -7873 Jan, Viral gastroenteritis A08.4 [facility] IN [place] [address] 32415 -6951 Dec, Bronchitis J40 [place] [address] 01993- 1311 May, Barretts esophagus without dysplasia K22.70 ; Depression with anxiety F41.8 and Eczema of both upper extremities L30.9 [facility] WALK IN [place] [address] 57190 -1737 May, Sore throat J02.9 and Acute non-recurrent pansinusitis J01.40 [place] [address] 24206- 9182 Apr, Barretts esophagus without dysplasia K22.70 and Depression with anxiety F41.8 [place] [address] 58827- 4058 Mar, Barretts esophagus without dysplasia K22.70 ; Tobacco abuse Z72.0 and Depression with anxiety F41.8 [place] [id number] [place] [address] 93163- 8578 Jan, Barretts esophagus without dysplasia K22.70 ; Tobacco abuse Z72.0 and Depression with anxiety F41.8 [facility] WALK IN [place] [address] 14359 -1483 Jan, Acute upper respiratory infection, unspecified J06.9 [place] [address] 47834- 7295 Oct, Essential hypertension, hypertension with unspecified goal I10 ; Frequent headaches R51 ; Vitamin D deficiency E55.9 ; Screening breast examination Z12.39 ; Chronic diarrhea K52.9 and Lower abdominal pain R10.30 [facility] [place] [id number] [place] [address] 32931- 2443 July, Essential hypertension, hypertension with unspecified goal I10 ; Frequent headaches R51 ; Vitamin D deficiency E55.9 ; Chronic intractable headache, unspecified headache type R51 and Low back pain M54.5 [facility] [place] [id number] [place] [address] 02065- 0573 July, [facility] [place] [id number] [place] [address] 05071- 1274 July, Essential hypertension, hypertension with unspecified goal I10 and Fatigue R53.83 [facility] [id number] [place] [address] 65044 -5233 Jun, Frequent headaches R51 [facility] [place] [id number] [place] [address] 84845- 6259 Jun, [facility] [place] [id number] [place] [address] 09355- 8937 Jun, [facility] [place] [id number] [place] [address] 19245- 6181 May, [facility] [place] [id number] [place] [address] 45130- 3178 May, [facility] [place] [id number] [place] [address] 96951- 2630 May, [facility] [place] [id number] [place] [address] 47473- 6125 May, [facility] [place] [id number] [place] [address] 73411- 3152 May, [facility] [place] [address] [place] [address] 49711- 4659 May, [facility] [place] [id number] [place] [address], [place] [address]- 6[address] Apr, [facility] [place] [facility] [address] [id number] [place] [address]- 5709 Apr, [facility] [place] [facility] [address] [id number] [place] [address]- 3472 Apr, [facility] [place] [facility] [address] [id number] [place] [address]- 8017 Apr, [facility] [place] [facility] [address] [id number] [place] [address]- 2856 Apr, [facility] [place] [facility] [address] [id number] [place] [address]- 4886 Apr, [facility] [place] [facility] [address] [id number] [place] [address]- 9653 Apr, [facility] [place] [facility] [address] [id number] [place] [address]- 0970 Apr, [facility] [place] [facility] [address] [id number] [place] [address]- 9478 Apr, [facility] [place] [facility] [address] [id number] [place] [address]- 3084 Apr, [facility] [place] [facility] [address] [id number] [place] [address]- 4531 Apr, [facility] [place] [facility] [address] [id number] [place] [address]- 2480 Apr, [facility] [place] [facility] [address] [id number] [place] [address]- 3537 Jan, [facility] [place] [facility] [address] [id number] [place] [address]- 1624 Jan, [facility] [place] [facility] [address] [id number] [place] [address]- 6672 Jan, [facility] [place] [facility] [address] [id number] [place] [address]- 4350 Jan, [facility] [place] [facility] [id number], [place] [address]- 6685 Jan, [facility] [place] [address], [place] [address]- 2872 Jan, [facility] [place] [address], [place] [address]- 2963 Jan, [facility] [place] [address], [place] [address]- 0423 Jan, [facility] [place] [address], [place] [address]- 5312 Jan, [facility] [place] [address], [place] [address]- 0708 Jan, [facility] [place] [address], [place] [address]- 5539 Aug, [facility] [place] [address], [place] [address]- 2941 Aug, IMMUNIZATIONS No Known Immunizations SOCIAL HISTORY Never Assessed REASON FOR VISIT f/u [place] Jagjit PLAN OF CARE Activity Details Follow Up 4 Weeks Reason: VITAL SIGNS Height 66 in 2018-02-27 Weight 201.4 lbs 2018-02-27 Heart Rate 96 bpm 2018-02-27 Respiratory Rate 20 2018-02-27 BMI 32.5 kg/m2 2018-02-27 Blood pressure systolic 136 mmHg 2018-02-27 Blood pressure diastolic 94 mmHg 2018-02-27 MEDICATIONS Medication Instructions Dosage Frequency Start Date End Date Duration Status Naproxen 250 MG Orally daily 1 tablet 24h Active Cyclobenzaprine HCl 10 mg Orally Three times a day 1 tablet as needed 8h 14 Nov, 2017 Active Amitriptyline HCl 100 MG Orally Once a day-bedtime 1 tablet Nov, 30 days Active Albuterol Sulfate (2.5 MG/3ML) 0.083% Inhalation every 6 hrs 3 ml as needed 6h Apr, Active RESULTS No Results PROCEDURES No Known [...] disc without myelopathy Medical History Barretts Esophagus -2015 [place] with EGD Colonoscopy Medical History back fracture [...]
--- OUTSIDE RECORDS SUMMARY | 2018-07-28 09:30 | XMS REPORT ---
Author Author LYNNETTE RODRIGUEZ 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 Name Role Phone LYNNETTE RODRIGUEZ Unavailable PROBLEMS Type Condition ICD9-CM Code JQU51-ZM Code Onset Dates Condition Status SNOMED Code Problem Frequent headaches R51 Active 99838591 Problem Low back pain M54.5 Active 958627378 Problem Vitamin D deficiency E55.9 Active 09662355 Problem Barretts esophagus without dysplasia K22.70 Active 805283945 Problem Essential hypertension, hypertension with unspecified goal I10 Active 81115550 Problem Radiculopathy of cervical region M54.12 Active 39058334 Problem PTSD (post-traumatic stress disorder) F43.10 Active 40387927 Problem Chronic diarrhea K52.9 Active 482662119 Problem Lower abdominal pain R10.30 Active 65263245 Problem Tobacco abuse Z72.0 Active 942301460 Problem Depression with anxiety F41.8 Active 076446985 ALLERGIES No Information ENCOUNTERS Encounter Location Date Diagnosis [place] [address] [place] [address] 65066- 1924 23 Dec, 2017 [facility] [place] [id number] [place] [address] 90684- 4165 24 Nov, 2017 PTSD (post-traumatic stress disorder) F43.10 [facility] [place] [address], [place] [address]- 9503 18 Nov, 2017 Radiculopathy of cervical region M54.12 [facility] [place] [id number] [place] [address] 29173- 4295 14 Nov, 2017 Cervical radiculopathy M54.12 [facility] [place] [id number] [place] [address] 65377- 7240 10 Nov, 2017 Cervical radiculopathy M54.12 [facility] [place] [id number] [place] [address] 99334- 8589 Nov, [facility] [address] [id number] Oct, Dental examination Z01.20 and Dental caries K02.9 [address] [place] [address] 58689- 1618 Oct, Cervical radiculopathy M54.12 [facility] [address] 08629 -7408 Sep, Gastroenteritis K52.9 [facility] [place] [address] 07958 -1332 July, Fungal rash of torso B36.9 [place] [address] 11591- 6530 May, [place] [address] 44922- 3501 Apr, Worst headache of life R51 and Pain aggravated by breathing R52 [place] [address] 54164- 8772 Apr, Pelvic pain R10.2 [place] [address] 98257- 0054 Apr, Bronchitis J40 [place] [address] 53213- 5910 Mar, Low back pain M54.5 [facility] [place] [address] 16158 -5026 Jan, Viral gastroenteritis A08.4 [facility] [address] 66676 -3807 Dec, Bronchitis J40 [place] [address] 59897- 1226 May, Barretts esophagus without dysplasia K22.70 ; Depression with anxiety F41.8 and Eczema of both upper extremities L30.9 [facility] [id number] [place] [address] 15017 -1636 May, Sore throat J02.9 and Acute non-recurrent pansinusitis J01.40 [facility] [place] [id number] [place] [address] 74735- 6081 Apr, Barretts esophagus without dysplasia K22.70 and Depression with anxiety F41.8 [place] [id number] [place] [address] 94371- 7724 Mar, Barretts esophagus without dysplasia K22.70 ; Tobacco abuse Z72.0 and Depression with anxiety F41.8 [place] [id number] [place] [address] 88507- 9273 Jan, Barretts esophagus without dysplasia K22.70 ; Tobacco abuse Z72.0 and Depression with anxiety F41.8 [facility] IN [facility] [id number] [place] [address] 10433 -3736 Jan, Acute upper respiratory infection, unspecified J06.9 [place] [id number] [place] [address] 40720- 9379 Oct, Essential hypertension, hypertension with unspecified goal I10 ; Frequent headaches R51 ; Vitamin D deficiency E55.9 ; Screening breast examination Z12.39 ; Chronic diarrhea K52.9 and Lower abdominal pain R10.30 [place] [id number] [place] [address] 60836- 9435 July, Essential hypertension, hypertension with unspecified goal I10 ; Frequent headaches R51 ; Vitamin D deficiency E55.9 ; Chronic intractable headache, unspecified headache type R51 and Low back pain M54.5 [place] [id number] [place] [address] 00466- 1884 July, [place] [id number] [place] [address] 92609- 8070 03 May, 2016 Essential hypertension, hypertension with unspecified goal I10 and Fatigue R53.83 [facility] [address] [place] [address]66 22 Jul, 2015 Frequent headaches R51 [facility] [place] [id number] [place] [address]- 9193 14 Jun, 2014 [facility] [place] [address], [place] [address]- 0100 13 Jun, 2014 [facility] [place] [address], [place] [address]- 9516 13 May, 2014 [facility] [place] [address] [place] [address] 29112- 1097 13 May, 2014 [facility] [place] [id number] [place] [address] 55010- 8529 11 May, 2014 [facility] [place] [id number] [place] [address] 98066- 4758 11 May, 2014 [facility] [place] [address], [place] [address]- 1498 10 May, 2014 [facility] [place] [address] [place] [address] 86893- 4544 10 May, 2014 [facility] [place] [address], [place] [address]- 5337 Apr, [facility] [place] [address], [place] [address]- 1363 Apr, [facility] [place] [address], [place] [address]- 2362 18 Apr, 2014 [facility] [place] [address], [place] [address]- 1587 Apr, [facility] [place] [address], [place] [address]- 5433 16 Apr, 2014 [facility] [place] [address], [place] [address]- 1204 16 Apr, 2014 [facility] [place] [facility] [address] [id number] [place] [address]- 9471 16 Apr, 2014 [facility] [place] [facility] [address] [id number] [place] [address]- 3492 Apr, [facility] [place] [facility] [address] [id number] [place] [address]- 0101 16 Apr, 2014 [facility] [place] [facility] [address] [id number] [place] [address]- 7563 15 Apr, 2014 [facility] [place] [facility] [address] [id number] [place] [address]- 6799 Apr, [facility] [place] [facility] [address] [id number] [place] [address]- 6906 Apr, [facility] [place] [facility] [address] [id number] [place] [address]- 9063 Jan, [facility] [place] [facility] [address] [id number] [place] [address]- 6838 Jan, [facility] [place] [facility] [address] [id number] [place] [address]- 4446 Jan, [facility] [place] [facility] [address] [id number], [place] [address]- 9842 Jan, [facility] [place] [facility] [address] [id number], [place] [address]- 1733 Jan, [facility] [place] [facility] [address] [id number], [place] [address]- 0224 Jan, [facility] [place] [facility] [address] [id number] [place] [address]- 2711 Jan, [facility] [place] [facility] [address] [id number], [place] [address]- 6013 Jan, [facility] [place] [facility] [address] [id number], [place] [address]- 9195 05 Jan, 2014 [facility] [place] [facility] [address] [id number], [place] [address]- 2546 Jan, [facility] [place] [address] [facility] [id number] [place] [address]- 7306 Aug, [facility] [place] [address] [facility] [id number][place] [address]- 2216 Aug, IMMUNIZATIONS No Known Immunizations SOCIAL HISTORY Never Assessed REASON FOR VISIT PLAN OF CARE VITAL SIGNS MEDICATIONS Medication Instructions Dosage Frequency Start Date End Date Duration Status Cyclobenzaprine HCl 10 mg Orally Three times a day 1 tablet as needed 8h 14 Nov, 2017 Active RESULTS No Results PROCEDURES No Known [...] without myelopathy Medical History Barretts Esophagus -2015 [place] with EGD Colonoscopy Medical History back fracture 2014 Surgical History hysterectomy abnormal cells and fibroids 2011 Surgical History appendectomy 2013 Surgical History dilatation and curettage and dental surgery 2009 Surgical History cystocele repair 2015 Surgical History bladder surgery pelvic sling 2013 Surgical History Oophorectomy 2013 Surgical History dental surgery teeth extractions Surgical History EGD/Colonoscopy 2016 Hospitalization History Pnuemonia 1996
--- OUTSIDE RECORDS SUMMARY | 2018-07-28 09:30 | XMS REPORT ---
Author Author LYNNETTE RODRIGUEZ [facility] Address [address] [place] [address] Care Team Providers Care Dietetic Technician Name Role Phone LYNNETTE RODRIGUEZ Unavailable PROBLEMS Type Condition ICD9-CM Code PQE18-CP Code Onset Dates Condition Status SNOMED Code Problem Frequent headaches R51 Active 64252445 Problem Low back pain M54.5 Active 233189432 Problem Vitamin D deficiency E55.9 Active 07152430 Problem Barretts esophagus without dysplasia K22.70 Active 795262492 Problem Essential hypertension, hypertension with unspecified goal I10 Active 36399363 Problem Radiculopathy of cervical region M54.12 Active 37261364 Problem PTSD (post-traumatic stress disorder) F43.10 Active 84488985 Problem Chronic diarrhea K52.9 Active 309699883 Problem Lower abdominal pain R10.30 Active 93956534 Problem Tobacco abuse Z72.0 Active 685742114 Problem Depression with anxiety F41.8 Active 056179366 ALLERGIES No Information ENCOUNTERS Encounter Location Date Diagnosis [place] [id number] [place] [address] 64524- 3884 23 Dec, 2017 [facility] [address] [place] [id number] [place] [address] 78543- 0713 24 Nov, 2017 PTSD (post-traumatic stress disorder) F43.10 [facility] [address], [place] [address] 9742 18 Nov, 2017 Radiculopathy of cervical region M54.12 [facility] [address] [place] [id number] [place] [address] 28478- 1942 14 Nov, 2017 Cervical radiculopathy M54.12 [facility] [address] [place] [id number] [place] [address] 41029- 1494 10 Nov, 2017 Cervical radiculopathy M54.12 [facility] [address] [place] [id number] [place] [address] 68107- 5559 Nov, [facility] [address] [id number] Oct, Dental examination Z01.20 and Dental caries K02.9 [place] [address] [address]- [address] Oct, Cervical radiculopathy M54.12 [facility] [address] [address] Sep, Gastroenteritis K52.9 [facility] [place] [address] [address] July, Fungal rash of torso B36.9 [place] [address] 11983- 7707 May, [place] [address] 83663- 2250 Apr, Worst headache of life R51 and Pain aggravated by breathing R52 [place] [address] 75179- 2941 Apr, Pelvic pain R10.2 [place] [address] 97603- 0612 Apr, Bronchitis J40 [place] [address] 28445- 7785 Mar, Low back pain M54.5 [facility] [place] [address] 25710 [address]5509 Jan, Viral gastroenteritis A08.4 [facility] [address] [address] Dec, Bronchitis J40 [place] [address] 56741- 9650 May, Barretts esophagus without dysplasia K22.70 ; Depression with anxiety F41.8 and Eczema of both upper extremities L30.9 [facility] [address] [place] [address] [id number] [place] [address] 79376 -4755 May, Sore throat J02.9 and Acute non-recurrent pansinusitis J01.40 [facility] [address] [place] [id number] [place] [address] 78393- 5842 Apr, Barretts esophagus without dysplasia K22.70 and Depression with anxiety F41.8 [place] [address] [place] [id number] [place] [address] 81551- 3329 Mar, Barretts esophagus without dysplasia K22.70 ; Tobacco abuse Z72.0 and Depression with anxiety F41.8 [place] [address] [place] [id number] [place] [address] 61129- 8402 Jan, Barretts esophagus without dysplasia K22.70 ; Tobacco abuse Z72.0 and Depression with anxiety F41.8 [facility] [address] [place] [address] [id number] [place] [address] 96641 -6301 Jan, Acute upper respiratory infection, unspecified J06.9 [place] [address] [place] [id number] [place] [address] 69720- 9438 Oct, Essential hypertension, hypertension with unspecified goal I10 ; Frequent headaches R51 ; Vitamin D deficiency E55.9 ; Screening breast examination Z12.39 ; Chronic diarrhea K52.9 and Lower abdominal pain R10.30 [place] [address] [place] [id number] [place] [address] 25638- 5173 July, Essential hypertension, hypertension with unspecified goal I10 ; Frequent headaches R51 ; Vitamin D deficiency E55.9 ; Chronic intractable headache, unspecified headache type R51 and Low back pain M54.5 [place] [address] [place] [id number] [place] [address] 78138- 6527 July, [place] [address] [place] [id number] [place] [address] 58384- 0237 03 May, 2016 Essential hypertension, hypertension with unspecified goal I10 and Fatigue R53.83 [facility] [address] [place] [address] 22 Jul, 2015 Frequent headaches R51 [facility] [address] [place] [id number] [place] [address] 5691 14 Jun, 2014 [facility] [address], [place] [address] 0589 13 Jun, 2014 [facility] [address], [place] [address] 4547 13 May, 2014 [facility] [address] [place] [address] 43900- 8383 13 May, 2014 [facility] [address] [place] [id number] [place] [address] 50663- 7598 11 May, 2014 [facility] [address] [place] [id number] [place] [address] 05345- 0112 11 May, 2014 [facility] [address], [place] [address]- 4196 10 May, 2014 [facility] [address] [place] [address] 99115- 1563 10 May, 2014 [facility] [address], [place] [address]- 3321 Apr, [facility] [address] [address]- 2089 Apr, [facility] [address], [place] [address]- 0680 18 Apr, 2014 [facility] [address], [place] [address]- 4648 Apr, [facility] [address], [place] [address]- 8847 16 Apr, 2014 [facility] [address], [place] [address]- 2424 16 Apr, 2014 [facility] [place] [facility] [address] [id number] [place] [address]- 3489 16 Apr, 2014 [facility] [place] [facility] [address] [id number] [place] [address]- 9900 Apr, [facility] [place] [facility] [address] [id number] [place] [address]- 1481 16 Apr, 2014 [facility] [place] [facility] [address] [id number] [place] [address]- 1921 15 Apr, 2014 [facility] [place] [facility] [address] [id number] [place] [address]- 5216 Apr, [facility] [place] [facility] [address] [id number] [place] [address]- 1059 Apr, [facility] [place] [facility] [address] [id number] [place] [address]- 6599 Jan, [facility] [place] [facility] [address] [id number] [place] [address]- 6136 Jan, [facility] [place] [facility] [address] [id number] [place] [address]- 3205 Jan, [facility] [place] [facility] [address] [id number], [place] [address]- 2925 Jan, [facility] [place] [facility] [address] [id number], [place] [address]- 5117 Jan, [facility] [place] [facility] [address] [id number], [place] [address]- 0059 Jan, [facility] [place] [facility] [address] [id number] [place] [address]- 3977 Jan, [facility] [place] [facility] [address] [id number], [place] [address]- 8057 Jan, [facility] [place] [facility] [address] [id number], [place] [address]- 2226 05 Jan, 2014 [facility] [place] [facility] [address] [id number], [place] [address]- 4276 Jan, [facility] [address] [facility] [id number] [place] [address]- 0362 Aug, [facility] [address] [facility] [id number], [place] [address]- 4396 Aug, IMMUNIZATIONS No Known Immunizations SOCIAL HISTORY Never Assessed REASON FOR VISIT Questions about MRI PLAN OF CARE VITAL SIGNS MEDICATIONS Unknown Medications RESULTS No Results PROCEDURES No Known procedures [...] without myelopathy Medical History Barretts Esophagus -2015 [place] with EGD Colonoscopy Medical History back fracture 2014 Surgical History hysterectomy abnormal cells and fibroids 2011 Surgical History appendectomy 2012 Surgical History dilatation and curettage and dental surgery 2008 Surgical History cystocele repair 2015 Surgical History bladder surgery pelvic sling 2012 Surgical History Oophorectomy 2012 Surgical History dental surgery teeth extractions Surgical History EGD/Colonoscopy 2016 Hospitalization History Pnuemonia 1996
--- OUTSIDE RECORDS SUMMARY | 2018-07-28 09:30 | XMS REPORT ---
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 Name Role Phone LYNNETTE RODRIGUEZ Unavailable PROBLEMS Type Condition ICD9-CM Code QAX56-HE Code Onset Dates Condition Status SNOMED Code Problem Frequent headaches R51 Active 70094533 Problem Low back pain M54.5 Active 685172241 Problem Vitamin D deficiency E55.9 Active 81668199 Problem Barretts esophagus without dysplasia K22.70 Active 742997766 Problem Essential hypertension, hypertension with unspecified goal I10 Active 72895473 Problem Radiculopathy of cervical region M54.12 Active 68554342 Problem PTSD (post-traumatic stress disorder) F43.10 Active 61514739 Problem Chronic diarrhea K52.9 Active 632176147 Problem Lower abdominal pain R10.30 Active 40791966 Problem Tobacco abuse Z72.0 Active 282738509 Problem Depression with anxiety F41.8 Active 703063812 ALLERGIES No Information ENCOUNTERS Encounter Location Date Diagnosis [place] [id number] [place] [address] 69539- 3780 23 Dec, 2017 [facility] [address] [place] [id number] [place] [address] 21336- 9678 24 Nov, 2017 PTSD (post-traumatic stress disorder) F43.10 [facility] [address], [place] [address]- 6032 18 Nov, 2017 Radiculopathy of cervical region M54.12 [facility] [address] [place] [id number] [place] [address] 59109- 3609 14 Nov, 2017 Cervical radiculopathy M54.12 [facility] [address] [place] [id number] [place] [address] 87346- 6479 10 Nov, 2017 Cervical radiculopathy M54.12 [facility] [address] [place] [id number] [place] [address] 78576- 3844 Nov, [facility] [address] [id number] Oct, Dental examination Z01.20 and Dental caries K02.9 [place] [address] 02559- 7288 Oct, Cervical radiculopathy M54.12 [facility] [address] 99396 -5992 Sep, Gastroenteritis K52.9 [facility] [place] [address] 758[address] -2716 July, Fungal rash of torso B36.9 [place] [address] 70701- 7588 May, [place] [address] 02850- 1704 Apr, Worst headache of life R51 and Pain aggravated by breathing R52 [place] [address] 68941- 2658 Apr, Pelvic pain R10.2 [place] [address] 98099- 5094 Apr, Bronchitis J40 [place] [address] 69910- 8036 Mar, Low back pain M54.5 [facility] [place] [address] 62733 -1034 Jan, Viral gastroenteritis A08.4 [facility] [address] 87329 -2795 Dec, Bronchitis J40 [place] [address] 91569- 3308 May, Barretts esophagus without dysplasia K22.70 ; Depression with anxiety F41.8 and Eczema of both upper extremities L30.9 [facility] [address] [place] [id number] [place] [address] 61630 -5578 May, Sore throat J02.9 and Acute non-recurrent pansinusitis J01.40 [facility] [address] [place] [id number] [place] [address] 12930- 2237 Apr, Barretts esophagus without dysplasia K22.70 and Depression with anxiety F41.8 [place] [address] [place] [id number] [place] [address] 31645- 8219 Mar, Barretts esophagus without dysplasia K22.70 ; Tobacco abuse Z72.0 and Depression with anxiety F41.8 [place] [address] [place] [id number] [place] [address] 22796- 0377 Jan, Barretts esophagus without dysplasia K22.70 ; Tobacco abuse Z72.0 and Depression with anxiety F41.8 [facility] [address] [place] [id number] [place] [address] 84647 -1697 Jan, Acute upper respiratory infection, unspecified J06.9 [place] [address] [place] [id number] [place] [address] 97727- 6515 Oct, Essential hypertension, hypertension with unspecified goal I10 ; Frequent headaches R51 ; Vitamin D deficiency E55.9 ; Screening breast examination Z12.39 ; Chronic diarrhea K52.9 and Lower abdominal pain R10.30 [place] [address] [place] [id number] [place] [address] 53269- 3678 July, Essential hypertension, hypertension with unspecified goal I10 ; Frequent headaches R51 ; Vitamin D deficiency E55.9 ; Chronic intractable headache, unspecified headache type R51 and Low back pain M54.5 [place] [address] [place] [id number] [place] [address] 70603- 4627 July, [place] [address] [place] [id number] [place] [address] 85669- 5234 03 May, 2016 Essential hypertension, hypertension with unspecified goal I10 and Fatigue R53.83 [facility] [address] [address]387 22 Jul, 2015 Frequent headaches R51 [facility] [address] [place] [id number] [address]- 5466 14 Jun, 2014 [facility] [address], [place] [address]- 9258 13 Jun, 2014 [facility] [address], [place] [address]- 3270 13 May, 2014 [facility] [address] [place] [address] 40553- 3881 13 May, 2014 [facility] [address] [place] [id number] [place] [address] 86498- 6738 11 May, 2014 [facility] [address] [place] [id number] [place] [address] 98227- 6056 11 May, 2014 [facility] [address], [place] [address]- 8434 10 May, 2014 [facility] [address] [place] [address] 04024- 3900 10 May, 2014 [facility] [address], [place] [address]- 1500 Apr, [facility] [address], [place] [address]- 1187 Apr, [facility] [address], [place] [address]- 9697 18 Apr, 2014 [facility] [address], [place] [address]- 5298 Apr, [facility] [address], [place] [address]- 0839 16 Apr, 2014 [facility] [address], [place] [address]- 7920 16 Apr, 2014 [facility] [place] [facility] [address] [id number] [place] [address]- 6346 16 Apr, 2014 [facility] [place] [facility] [address] [id number] [place] [address]- 5357 Apr, [facility] [place] [facility] [address] [id number] [place] [address]- 8881 16 Apr, 2014 [facility] [place] [facility] [address] [id number] [place] [address]- 7591 15 Apr, 2014 [facility] [place] [facility] [address] [id number] [place] [address]- 2148 Apr, [facility] [place] [facility] [address] [id number] [place] [address]- 9643 Apr, [facility] [place] [facility] [address] [id number] [place] [address]- 7057 Jan, [facility] [place] [facility] [address] [id number] [place] [address]- 4540 Jan, [facility] [place] [facility] [address] [id number] [place] [address]- 4049 Jan, [facility] [place] [facility] [address] [id number], [place] [address]- 4925 Jan, [facility] [place] [facility] [address] [id number], [place] [address]- 4358 Jan, [facility] [place] [facility] [address] [id number], [place] [address]- 0503 Jan, [facility] [place] [facility] [address] [id number] [place] [address]- 4842 Jan, [facility] [place] [facility] [address] [id number], [place] [address]- 0310 Jan, [facility] [place] [facility] [address] [id number], [place] [address]- 2734 05 Jan, 2014 [facility] [place] [facility] [address] [id number], [place] [address]- 9994 Jan, [facility] [address] [facility] [id number] [place] [address]- 5509 Aug, [facility] [address] [facility] [id number], [place] [address]- 2686 Aug, IMMUNIZATIONS No Known Immunizations SOCIAL HISTORY Never Assessed REASON FOR VISIT PLAN OF CARE VITAL SIGNS MEDICATIONS Unknown [...] without myelopathy Medical History Barretts Esophagus -2015 [place] with EGD Colonoscopy Medical History back fracture [...]
--- OUTSIDE RECORDS SUMMARY | 2018-07-28 09:30 | XMS REPORT ---
Author Author LYNNETTE RODRIGUEZ [facility] Address [address] [place] [address] Care Team Providers Care Insurance Defense Paralegal Name Role Phone LYNNETTE RODRIGUEZ Unavailable PROBLEMS Type Condition ICD9-CM Code CQW53-VA Code Onset Dates Condition Status SNOMED Code Problem Frequent headaches R51 Active 73576137 Problem Low back pain M54.5 Active 084014459 Problem Vitamin D deficiency E55.9 Active 34048428 Problem Barretts esophagus without dysplasia K22.70 Active 934298962 Problem Essential hypertension, hypertension with unspecified goal I10 Active 87255266 Problem Radiculopathy of cervical region M54.12 Active 86406038 Problem PTSD (post-traumatic stress disorder) F43.10 Active 56531545 Problem Chronic diarrhea K52.9 Active 973473052 Problem Lower abdominal pain R10.30 Active 76710084 Problem Tobacco abuse Z72.0 Active 013340307 Problem Depression with anxiety F41.8 Active 867830785 ALLERGIES No Information ENCOUNTERS Encounter Location Date Diagnosis [place] [id number] [place] [address] 96018- 7619 23 Dec, 2017 [facility] [address] [place] [id number] [place] [address] 41661- 1328 24 Nov, 2017 PTSD (post-traumatic stress disorder) F43.10 [facility] [address] [address] 18 Nov, 2017 Radiculopathy of cervical region M54.12 [facility] [address] [id number] [place] [address] 14571- 8757 14 Nov, 2017 Cervical radiculopathy M54.12 [facility] [id number] [place] [address] 50677- 6514 10 Nov, 2017 Cervical radiculopathy M54.12 [facility] [id number] [place] [address] 25914- 9114 Nov, [facility] [address] [id number] Oct, Dental examination Z01.20 and Dental caries K02.9 [place] [address] 8[address]29- 2175 Oct, Cervical radiculopathy M54.12 [facility] [address] [address]2243 Sep, Gastroenteritis K52.9 [facility] [place] [address] 95[address]8666 July, Fungal rash of torso B36.9 [place] [address] 82816- 8328 May, [place] [address] 23506- 3435 Apr, Worst headache of life R51 and Pain aggravated by breathing R52 [place] [address] 76634- 9963 Apr, Pelvic pain R10.2 [place] [address] 42061- 5829 Apr, Bronchitis J40 [place] [address] 79066- 8401 Mar, Low back pain M54.5 [facility] [place] [address] 32955 [address]6387 Jan, Viral gastroenteritis A08.4 [facility] [address] [address] Dec, Bronchitis J40 [place] [address] 35540- 5024 May, Barretts esophagus without dysplasia K22.70 ; Depression with anxiety F41.8 and Eczema of both upper extremities L30.9 [facility] [id number] [place] [address] 45154 -3934 May, Sore throat J02.9 and Acute non-recurrent pansinusitis J01.40 [facility] [address] [place] [id number] [place] [address] 27058- 1003 Apr, Barretts esophagus without dysplasia K22.70 and Depression with anxiety F41.8 [place] [address] [place] [id number] [place] [address] 66189- 8470 Mar, Barretts esophagus without dysplasia K22.70 ; Tobacco abuse Z72.0 and Depression with anxiety F41.8 [place] [address] [place] [id number] [place] [address] 82030- 8108 Jan, Barretts esophagus without dysplasia K22.70 ; Tobacco abuse Z72.0 and Depression with anxiety F41.8 [facility] IN [facility] [id number] [place] [address] 60725 -0664 Jan, Acute upper respiratory infection, unspecified J06.9 [place] [address] [place] [id number] [place] [address] 58789- 1528 Oct, Essential hypertension, hypertension with unspecified goal I10 ; Frequent headaches R51 ; Vitamin D deficiency E55.9 ; Screening breast examination Z12.39 ; Chronic diarrhea K52.9 and Lower abdominal pain R10.30 [place] [address] [place] [id number] [place] [address] 31465- 7411 July, Essential hypertension, hypertension with unspecified goal I10 ; Frequent headaches R51 ; Vitamin D deficiency E55.9 ; Chronic intractable headache, unspecified headache type R51 and Low back pain M54.5 [place] [address] [place] [id number] [place] [address] 03502- 6305 July, [place] [address] [place] [id number] [place] [address] 31165- 2047 03 May, 2016 Essential hypertension, hypertension with unspecified goal I10 and Fatigue R53.83 [facility] [address] [place] [address] 22 Jul, 2015 Frequent headaches R51 [facility] [address] [place] [id number] [place] [address] 9569 14 Jun, 2014 [facility] [address], [place] [address] 8093 13 Jun, 2014 [facility] [address] [address] 1907 13 May, 2014 [facility] [id number] [place] [address] 71234- 1657 13 May, 2014 [facility] [address] [id number] [place] [address] 19316- 0334 11 May, 2014 [facility] [address] [address] [id number] [place] [address] 74110- 9017 11 May, 2014 [facility] [address], [place] [address] 1447 10 May, 2014 [facility] [address] [place] [address] 61715- 9595 10 May, 2014 [facility] [address], [place] [address]- 0472 Apr, [facility] [address] [address] 9561 Apr, [facility] [address], [place] [address] 2924 18 Apr, 2014 [facility] [address], [place] [address] 2664 Apr, [facility] [address], [place] [address]- 4865 16 Apr, 2014 [facility] [address], [place] [address]- 9954 16 Apr, 2014 [facility] [place] [facility] [address] [id number] [place] [address]- 8911 16 Apr, 2014 [facility] [place] [facility] [address] [id number] [place] [address]- 3619 Apr, [facility] [place] [facility] [address] [id number] [place] [address]- 5415 16 Apr, 2014 [facility] [place] [facility] [address] [id number] [place] [address]- 6122 15 Apr, 2014 [facility] [place] [facility] [address] [id number] [place] [address]- 9809 Apr, [facility] [place] [facility] [address] [id number] [place] [address]- 9509 Apr, [facility] [place] [facility] [address] [id number] [place] [address]- 1193 Jan, [facility] [place] [facility] [address] [id number] [place] [address]- 1943 Jan, [facility] [place] [facility] [address] [id number] [place] [address]- 0691 Jan, [facility] [place] [facility] [address] [id number], [place] [address]- 3183 Jan, [facility] [place] [facility] [address] [id number], [place] [address]- 4009 Jan, [facility] [place] [facility] [address] [id number], [place] [address]- 4498 Jan, [facility] [place] [facility] [address] [id number] [place] [address]- 0845 Jan, [facility] [place] [facility] [address] [id number] [address]- 6558 Jan, [facility] [place] [facility] [address] [id number], [place] [address]- 5506 05 Jan, 2014 [facility] [place] [facility] [address] [id number], [place] [address]- 8214 Jan, [facility] [address] [facility] [id number] [place] [address]- 3100 Aug, [facility] [address] [facility] [id number], [place] [address]- 6886 Aug, IMMUNIZATIONS No Known Immunizations SOCIAL HISTORY [...] without myelopathy Medical History Barretts Esophagus -2015 [facility] with EGD Colonoscopy Medical History back fracture [...]
--- OUTSIDE RECORDS SUMMARY | 2018-07-28 09:30 | XMS REPORT ---
Author Author AYECLIF ADILSON [facility] Address Unknown Care Team Providers Care Triage Registered Nurse Name Role Phone ADILSON PAINTER Unavailable PROBLEMS Type Condition ICD9-CM Code JKM36-TM Code Onset Dates Condition Status SNOMED Code Problem Frequent headaches R51 Active 77713054 Problem Low back pain M54.5 Active 343664747 Problem Vitamin D deficiency E55.9 Active 75225479 Problem Barretts esophagus without dysplasia K22.70 Active 631825081 Problem Essential hypertension, hypertension with unspecified goal I10 Active 61722231 Problem Radiculopathy of cervical region M54.12 Active 29987761 Problem PTSD (post-traumatic stress disorder) F43.10 Active 42555714 Problem Chronic diarrhea K52.9 Active 026187003 Problem Lower abdominal pain R10.30 Active 91923155 Problem Tobacco abuse Z72.0 Active 340847354 Problem Depression with anxiety F41.8 Active 124062264 ALLERGIES Substance Reaction Event Type Date Status Imitrex Unknown Drug Allergy Oct, Active Erythromycin Base Unknown Drug Allergy Oct, Active Aspirin Unknown Drug Allergy Oct, Active Tramadol Unknown Drug Allergy Oct, Active ENCOUNTERS Encounter Location Date Diagnosis [place] [address] [place] [address] 63933- 6306 Dec, [place] [address] [place] [id number] [place] [address] 52150- 8830 24 Nov, 2017 PTSD (post-traumatic stress disorder) F43.10 [place] [address] [place] [address] 40862- 9805 18 Nov, 2017 Radiculopathy of cervical region M54.12 [place] [address] [place] [id number] [address]- 7529 14 Nov, 2017 Cervical radiculopathy M54.12 [place] [address] 99049- 5929 10 Nov, 2017 Cervical radiculopathy M54.12 [facility] [address] 01056- 2933 10 Nov, 2017 [facility] [address] [id number] Oct, Dental examination Z01.20 and Dental caries K02.9 [facility] [address] 56121- 7150 Oct, Cervical radiculopathy M54.12 [facility] [address] 99459 -5139 Sep, Gastroenteritis K52.9 [facility] [place] [address] 91199 -7116 July, Fungal rash of torso B36.9 [facility] [address] 79015- 2715 May, [facility] [address] 87293- 3330 Apr, Worst headache of life R51 and Pain aggravated by breathing R52 [place] [address] 68599- 7325 Apr, Pelvic pain R10.2 [place] [address] 87311- 0055 Apr, Bronchitis J40 [facility] [address] 88883- 2657 Mar, Low back pain M54.5 [facility] [address] 83620 -1768 Jan, Viral gastroenteritis A08.4 [facility] [address] 63337 -4334 Dec, Bronchitis J40 [place] [address] [place] [id number] [place] [address] 14318- 1536 May, Barretts esophagus without dysplasia K22.70 ; Depression with anxiety F41.8 and Eczema of both upper extremities L30.9 [facility] [address] 95683 -6472 24 May, 2016 Sore throat J02.9 and Acute non-recurrent pansinusitis J01.40 [place] [address] 70801- 1508 Apr, Barretts esophagus without dysplasia K22.70 and Depression with anxiety F41.[address] 98394- 6175 Mar, Barretts esophagus without dysplasia K22.70 ; Tobacco abuse Z72.0 and Depression with anxiety F41.[address] 23503- 9344 Jan, Barretts esophagus without dysplasia K22.70 ; Tobacco abuse Z72.0 and Depression with anxiety F41.8 [facility] [place] [address] 54008 -4328 Jan, Acute upper respiratory infection, unspecified J06.9 [place] [address] 48128- 4398 Oct, Essential hypertension, hypertension with unspecified goal I10 ; Frequent headaches R51 ; Vitamin D deficiency E55.9 ; Screening breast examination Z12.39 ; Chronic diarrhea K52.9 and Lower abdominal pain R10.30 [place] [address] 14663- 3321 July, Essential hypertension, hypertension with unspecified goal I10 ; Frequent headaches R51 ; Vitamin D deficiency E55.9 ; Chronic intractable headache, unspecified headache type R51 and Low back pain M54.[address] 12878- 9046 July, [place] [address], [place] [address]- 2172 July, Essential hypertension, hypertension with unspecified goal I10 and Fatigue R53.83 [facility] [address], [place] [address]89 22 Jul, 2015 Frequent headaches R51 [facility] [address] [place] [address]- 7854 14 Jun, 2014 [facility] [address] [id number] [address]- 2507 Jun, [facility] [address] [place] [id number] [place] [address] 25904- 3052 May, [facility] [address] [place] [id number] [address]- 6463 May, [facility] [address] [place] [address] 76636- 2611 May, [facility] [address], [place] [address]- 3403 May, [facility] [address] [place] [address] 92442- 8736 May, [facility] [address], [place] [address]- 1442 May, [facility] [address], [place] [address]- 9873 Apr, [facility] [address], [place] [address]- 5893 Apr, [facility] [address], [place] [address]- 7412 Apr, [facility] [address], [place] [address]- 1028 Apr, [facility] [address], [place] [address]- 7873 Apr, [facility] [place] [facility] [address] [id number] [place] [address]- 7789 16 Apr, 2014 [facility] [place] [facility] [address] [id number] [place] [address]- 1941 16 Apr, 2014 [facility] [place] [facility] [address] [id number] [place] [address]- 1749 16 Apr, 2014 [facility] [place] [facility] [address] [id number] [place] [address]- 0794 Apr, [facility] [place] [facility] [address] [id number] [place] [address]- 2207 15 Apr, 2014 [facility] [place] [facility] [address] [id number] [place] [address]- 5506 14 Apr, 2014 [facility] [place] [facility] [address] [id number] [place] [address]- 6543 Apr, [facility] [place] [facility] [address] [id number] [place] [address]- 9274 Jan, [facility] [place] [facility] [address] [id number] [place] [address]- 7677 Jan, [facility] [place] [facility] [address] [id number] [place] [address]- 2629 Jan, [facility] [place] [facility] [address] [id number] [place] [address]- 0892 24 Jan, 2014 [facility] [place] [facility] [address] [id number], [place] [address]- 2195 14 Jan, 2014 [facility] [place] [facility] [address] [id number] [place] [address]- 9197 Jan, [facility] [place] [facility] [address] [id number] [place] [address]- 5686 Jan, [facility] [place] [facility] [address] [id number], [place] [address]- 0425 Jan, [facility] [place] [facility] [address] [id number], [place] [address]- 3996 Jan, [facility] [address] [facility] [id number] [place] [address]- 2436 Jan, [facility] [address] [facility] [id number], [place] [address]- 0586 Aug, [facility] [address] [facility] [id number] [place] [address]- 9866 Aug, IMMUNIZATIONS No Known Immunizations SOCIAL HISTORY Never Assessed REASON FOR VISIT PAIN/ LORRIE PLAN OF CARE Activity Details Follow Up prn Reason:bobbi VITAL SIGNS Height 66 in 2017-11-29 Blood pressure systolic 141 mmHg 2017-11-29 Blood pressure diastolic 96 mmHg 2017-11-29 MEDICATIONS Medication Instructions Dosage Frequency Start Date End Date Duration Status Albuterol Sulfate (2.5 MG/3ML) 0.083% Inhalation every 6 hrs 3 ml as needed 6h Apr, Not-Taking Ibuprofen 200 MG Orally Three times a day 1 tablet with food or milk as needed 8h Not-Taking Tylenol 325 MG Orally every 4 hrs 1 capsule as needed 4h Not- Taking Ondansetron HCl 4 MG Orally every 4 hrs 1 tablet as needed 4h Sep, 05 days Not-Taking RESULTS No Results PROCEDURES Procedure Date Ordered Result Body Site LTD ORAL EVALUATION - PROBLEM FOCUS Nov 29, 2017 INTRAORL-PERIAPICAL 1 FILM 61132 Nov 29, 2017 EXTRAC ERUPTED TOOTH/EXPOSED ROOT Nov 29, 2017 BITEWING - SINGLE FILM Nov 29, 2017 INSTRUCTIONS MEDICATIONS ADMINISTERED No Known Medications MEDICAL [...]
--- OUTSIDE RECORDS SUMMARY | 2018-07-28 09:31 | XMS REPORT ---
Author Author JOSE RIVAS [facility] Address [address] [place] [address] Phone Unavailable Care Team Providers Care Care Attendant Name Role Phone JOSE RIVAS Unavailable Unavailable PROBLEMS Type Condition ICD9-CM Code RHX58-CB Code Onset Dates Condition Status SNOMED Code Problem Barretts esophagus without dysplasia K22.70 Active 454120371 Problem Vitamin D deficiency E55.9 Active 79068603 Problem Essential hypertension, hypertension with unspecified goal I10 Active 80757453 Problem Tobacco abuse Z72.0 Active 128745241 Problem Depression with anxiety F41.8 Active 511073555 Problem Low back pain M54.5 Active 819927628 Problem Frequent headaches R51 Active 27035941 Problem Chronic diarrhea K52.9 Active 422670604 Problem Lower abdominal pain R10.30 Active 00175767 ALLERGIES Substance Reaction Event Type Date Status Imitrex Unknown Drug Allergy July, Active Erythromycin Base Unknown Drug Allergy July, Active Aspirin Unknown Drug Allergy July, Active Tramadol Unknown Drug Allergy July, Active ENCOUNTERS Encounter Location Date Diagnosis [facility] [id number] [place] [address]655 Oct, [facility] [id number] [place] [address]853 Sep, Gastroenteritis K52.9 [facility] [id number] [place] [address]36 [address]3652 July, Fungal rash of torso B36.9 [facility] [address] [address] May, [facility] [id number] [place] [address] 08053- 8525 Apr, Worst headache of life R51 and Pain aggravated by breathing R52 [facility] [id number] [place] [address] 74670- 6247 Apr, Pelvic pain R10.2 [place] [address] [address]- [address]74 Apr, Bronchitis J40 [place] [address] 8[address]73- 2333 Mar, Low back pain M54.5 [facility] [address] [address] Jan, Viral gastroenteritis A08.4 [facility] [place] [address] [address] Dec, Bronchitis J40 [place] [address] 37[address]- 7311 May, Barretts esophagus without dysplasia K22.70 ; Depression with anxiety F41.8 and Eczema of both upper extremities L30.9 [facility] [place] [id number] [place] [address] -0557 May, Sore throat J02.9 and Acute non-recurrent pansinusitis J01.40 [place] [id number] [place] [address] 95966- 7678 Apr, Barretts esophagus without dysplasia K22.70 and Depression with anxiety F41.8 [place] [id number] [place] [address] 84283- 4681 Mar, Barretts esophagus without dysplasia K22.70 ; Tobacco abuse Z72.0 and Depression with anxiety F41.8 [place] [address] 7[address]71- 36[address] Jan, Barretts esophagus without dysplasia K22.70 ; Tobacco abuse Z72.0 and Depression with anxiety F41.8 [facility] [place] [address] 7[address] Jan, Acute upper respiratory infection, unspecified J06.9 [place] [address], [place] [address] Oct, Essential hypertension, hypertension with unspecified goal I10 ; Frequent headaches R51 ; Vitamin D deficiency E55.9 ; Screening breast examination Z12.39 ; Chronic diarrhea K52.9 and Lower abdominal pain R10.30 [facility] [id number] [address] July, Essential hypertension, hypertension with unspecified goal I10 ; Frequent headaches R51 ; Vitamin D deficiency E55.9 ; Chronic intractable headache, unspecified headache type R51 and Low back pain M54.5 [facility] [id number] [place] [address] 76858- 0026 July, [facility] [id number] [place] [address] 06620- 8284 July, Essential hypertension, hypertension with unspecified goal I10 and Fatigue R53.83 [facility] [id number] [place] [address]26 -7743 Jun, Frequent headaches R51 [facility] [id number] [place] [address] 20726- 5410 Jun, [facility] [id number] [place] [address] 75286- 4966 Jun, [facility] [address] [address] May, [facility] [id number] [place] [address] 66968- 2152 May, [facility] [id number] [place] [address] 75921- 9303 May, [facility] [id number] [place] [address] 46219- 5262 May, [facility] [address], [place] [address] May, [facility] [address] [id number] [place] [address]- 98[address] 10 May, 2014 [facility] [place] [facility] [address] [id number] [place] [address]- 0444 Apr, [facility] [place] [facility] [address] [id number] [place] [address]- 0239 Apr, [facility] [place] [facility] [address] [id number] [place] [address]- 0326 Apr, [facility] [place] [facility] [address] [id number] [place] [address]- 6047 Apr, [facility] [place] [facility] [address] [id number] [place] [address]- 5130 Apr, [facility] [place] [facility] [address] [id number] [place] [address]- 2025 Apr, [facility] [place] [facility] [address] [id number] [place] [address]- 4169 Apr, [facility] [place] [facility] [address] [id number] [place] [address]- 6028 Apr, [facility] [place] [facility] [address] [id number] [place] [address]- 9481 Apr, [facility] [place] [facility] [address] [id number] [place] [address]- 1371 Apr, [facility] [place] [facility] [address] [id number] [place] [address]- 7955 Apr, [facility] [place] [facility] [address] [id number] [place] [address]- 8768 Apr, [facility] [place] [facility] [address] [id number] [place] [address]- 4111 Jan, [facility] [place] [facility] [address] [id number] [place] [address]- 3488 Jan, [facility] [place] [facility] [address] [id number] [place] [address]- 3899 Jan, [facility] [id number] [address] Jan, [facility] [address], [place] [address]- 4377 Jan, [facility] [id number], [place] [address]- 97[address] Jan, [facility] [address], [place] [address]- 6070 Jan, [facility] [address], [place] [address]- 9658 Jan, [facility] [address] [place] [address] 01122- 9962 Jan, [facility] [address], [place] [address]- 7170 Jan, [facility] [address], [place] [address]- 8[address] Aug, [facility] [id number] [address] Aug, IMMUNIZATIONS No Known Immunizations SOCIAL HISTORY Never Assessed REASON FOR VISIT rash on back started 3 months ago JStrasserRN PLAN OF CARE Activity Details Follow Up prn Reason: VITAL SIGNS Height 66 in 2017-08-28 Weight 195.2 lbs 2017-08-28 Temperature 97.5 degrees Fahrenheit 2017-08-28 Heart Rate 88 bpm 2017-08-28 Respiratory Rate 20 2017-08-28 BMI 31.50 kg/m2 2017-08-28 Blood pressure systolic 120 mmHg 2017-08-28 Blood pressure diastolic 78 mmHg 2017-08-28 MEDICATIONS Medication Instructions Dosage Frequency Start Date End Date Duration Status Ketoconazole 2 % Externally Once a day 1 application to affected area 24h July, Aug, 14 days Active Albuterol Sulfate (2.5 MG/3ML) 0.083% Inhalation every 6 hrs 3 ml as needed 6h Apr, Not-Taking Excedrin Tension Headache 500-65 MG Not-Taking RESULTS No Results PROCEDURES No Known procedures [...] without myelopathy Medical History Barretts Esophagus -2015 [place] with EGD Colonoscopy Surgical History hysterectomy abnormal cells and fibroids 2011 Surgical History appendectomy 2012 Surgical History dilatation and curettage and dental surgery 2008 Surgical History cystocele repair 2014 Surgical History bladder surgery pelvic sling 2012 Surgical History Oophorectomy 2012 Surgical History dental surgery teeth extractions Surgical History EGD/Colonoscopy 2015 Hospitalization History Pnuemonia 1996
--- OUTSIDE RECORDS SUMMARY | 2018-07-28 09:31 | XMS REPORT ---
Author Author SONALI GONZALEZ [facility] Address [address] [place] [address] Care Team Providers Care Noc Analyst Name Role Phone SONALI GONZALEZ Unavailable PROBLEMS Type Condition ICD9-CM Code HSR14-EG Code Onset Dates Condition Status SNOMED Code Problem Barretts esophagus without dysplasia K22.70 Active 461814563 Problem Vitamin D deficiency E55.9 Active 37326028 Problem Essential hypertension, hypertension with unspecified goal I10 Active 61539210 Problem Tobacco abuse Z72.0 Active 128010729 Problem Depression with anxiety F41.8 Active 469503099 Problem Low back pain M54.5 Active 009616484 Problem Frequent headaches R51 Active 09501300 Problem Chronic diarrhea K52.9 Active 621840725 Problem Lower abdominal pain R10.30 Active 24383219 ALLERGIES Substance Reaction Event Type Date Status Imitrex Unknown Drug Allergy Sep, Active Erythromycin Base Unknown Drug Allergy Sep, Active Aspirin Unknown Drug Allergy Sep, Active Tramadol Unknown Drug Allergy Sep, Active ENCOUNTERS Encounter Location Date Diagnosis [facility] [id number] [place] [id number] Oct, Dental examination Z01.20 and Dental caries K02.9 [facility] [address] [place] [address] 29885- 9674 Oct, Cervical radiculopathy M54.12 [facility] [id number] [place] [address] 28342 -1537 Sep, Gastroenteritis K52.9 [facility] [id number] [place] [address] 82702 -1659 July, Fungal rash of torso B36.9 [facility] [address] [address]- [address] May, [facility] [id number] [place] [address] 23469- 9146 Apr, Worst headache of life R51 and Pain aggravated by breathing R52 [place] [id number] [place] [address] 68541- 2043 Apr, Pelvic pain R10.2 [place] [address] [address]- 6837 Apr, Bronchitis J40 [place] [address] 59[address]- 7901 Mar, Low back pain M54.5 [facility] [place] [address] [address]88 Jan, Viral gastroenteritis A08.4 [facility] [address] [address] Dec, Bronchitis J40 [place] [address] [address]- 1413 May, Barretts esophagus without dysplasia K22.70 ; Depression with anxiety F41.8 and Eczema of both upper extremities L30.9 [facility] [place] [id number] [place] [address] 64147 -7332 May, Sore throat J02.9 and Acute non-recurrent pansinusitis J01.40 [place] [id number] [place] [address] 41939- 4573 Apr, Barretts esophagus without dysplasia K22.70 and Depression with anxiety F41.8 [place] [address] [address]- 5986 Mar, Barretts esophagus without dysplasia K22.70 ; Tobacco abuse Z72.0 and Depression with anxiety F41.8 [place] [id number] [place] [address] 63889- 9666 Jan, Barretts esophagus without dysplasia K22.70 ; Tobacco abuse Z72.0 and Depression with anxiety F41.8 [facility] [address], [place] [address] Jan, Acute upper respiratory infection, unspecified J06.9 [facility] [id number] [place] [address] 22384- 6133 Oct, Essential hypertension, hypertension with unspecified goal I10 ; Frequent headaches R51 ; Vitamin D deficiency E55.9 ; Screening breast examination Z12.39 ; Chronic diarrhea K52.9 and Lower abdominal pain R10.30 [facility] [id number] [place] [address] 90180- 5313 July, Essential hypertension, hypertension with unspecified goal I10 ; Frequent headaches R51 ; Vitamin D deficiency E55.9 ; Chronic intractable headache, unspecified headache type R51 and Low back pain M54.5 [place] [id number] [place] [address] 67215- 2139 July, [facility] [id number] [place] [address] 11361- 2318 July, Essential hypertension, hypertension with unspecified goal I10 and Fatigue R53.83 [facility] [id number] [place] [address] 15137 -0149 Jun, Frequent headaches R51 [facility] [id number] [place] [address] 61286- 1543 Jun, [place] [id number] [place] [address] 44878- 7418 Jun, [facility] [id number] [place] [address] 17632- 7472 May, [place] [id number] [place] [address] 82944- 6608 May, [facility] [id number] [place] [address] 80644- 3749 May, [place] [address] [place] [facility] [place] [address]- [address] 11 May, 2014 [facility] [address] [id number] [place] [address]- 0597 10 May, 2014 [facility] [place] [facility] [address] [id number] [place] [address]- 0806 10 May, 2014 [facility] [place] [facility] [address] [id number] [place] [address]- 1089 23 Apr, 2014 [facility] [place] [facility] [address] [id number] [place] [address]- 4074 23 Apr, 2014 [facility] [place] [facility] [address] [id number] [place] [address]- 9789 18 Apr, 2014 [facility] [place] [facility] [address] [id number] [place] [address]- 0441 16 Apr, 2014 [facility] [place] [facility] [address] [id number] [place] [address]- 2001 Apr, [facility] [place] [facility] [address] [id number] [place] [address]- 3346 Apr, [facility] [place] [facility] [address] [id number] [place] [address]- 5558 Apr, [facility] [place] [facility] [address] [id number] [place] [address]- 5321 16 Apr, 2014 [facility] [place] [facility] [address] [id number] [place] [address]- 6452 16 Apr, 2014 [facility] [place] [facility] [address] [id number] [place] [address]- 8257 15 Apr, 2014 [facility] [place] [facility] [address] [id number] [place] [address]- 5074 14 Apr, 2014 [facility] [place] [facility] [address] [id number] [place] [address]- 7676 14 Apr, 2014 [facility] [place] [facility] [address] [id number] [place] [address] Jan, [facility] [id number] [address]- 2454 Jan, [facility] [address] [place] [address]- 4352 Jan, [facility] [address], [place] [address]- 0019 Jan, [facility] [address] [address]- 8877 Jan, [facility] [address], [place] [address]- 4139 Jan, [facility] [address] [address]- 4334 Jan, [facility] [address], [place] [address]- 4626 Jan, [facility] [address] [address]- 9148 Jan, [facility] [address] [address]- 2495 Jan, [facility] [address], [place] [address]- 7139 Aug, [facility] [address] [address]- 9631 Aug, IMMUNIZATIONS No Known Immunizations SOCIAL HISTORY Never Assessed REASON FOR VISIT N/V/D for 2 days. also reports a fever yesterday. [email or web address] PLAN OF CARE Activity Details Follow Up 1 Week, prn Reason:if symptoms worsen or not improving VITAL SIGNS Height 66 in 2017-10-18 Weight 196.6 lbs 2017-10-18 Temperature 97.6 degrees Fahrenheit 2017-10-18 Heart Rate 84 bpm 2017-10-18 Respiratory Rate 2017-10-18 BMI 31.73 kg/m2 2017-10-18 Blood pressure systolic 116 mmHg 2017-10-18 Blood pressure diastolic 74 mmHg 2017-10-18 MEDICATIONS Medication Instructions Dosage Frequency Start Date End Date Duration Status Albuterol Sulfate (2.5 MG/3ML) 0.083% Inhalation every 6 hrs 3 ml as needed 6h Apr, Active Tylenol 325 MG Orally every 4 hrs 1 capsule as needed 4h Active Ibuprofen 200 MG Orally Three times a day 1 tablet with food or milk as needed 8h Active Ondansetron HCl 4 MG Orally every 4 hrs 1 tablet as needed 4h Sep, 05 days Active RESULTS No Results PROCEDURES No Known [...] disc without myelopathy Medical History Barretts Esophagus [place] with EGD Colonoscopy Surgical History hysterectomy abnormal cells and fibroids 2011 Surgical History appendectomy 2012 Surgical History dilatation and curettage and dental surgery 2008 Surgical History cystocele repair 2014 Surgical History bladder surgery pelvic sling 2012 Surgical History Oophorectomy 2012 Surgical History dental surgery teeth extractions Surgical History EGD/Colonoscopy 2016 Hospitalization History Pnuemonia 1996
--- OUTSIDE RECORDS SUMMARY | 2018-07-28 09:31 | XMS REPORT ---
Author Author CARLI FAIR Organization [facility] Address [address] [place] [address] Care Team Providers Care Appeals Board Referee Name Role Phone CARLI FAIR Unavailable PROBLEMS Type Condition ICD9-CM Code [id number] Code Onset Dates Condition Status SNOMED Code Problem Barretts esophagus without dysplasia K22.70 Active 644578935 Problem Vitamin D deficiency E55.9 Active 62487283 Problem Essential hypertension, hypertension with unspecified goal I10 Active 29233706 Problem Tobacco abuse Z72.0 Active 390234930 Problem Depression with anxiety F41.8 Active 266548401 Problem Low back pain M54.5 Active 113873559 Problem Frequent headaches R51 Active 27271392 Problem Chronic diarrhea K52.9 Active 916351179 Problem Lower abdominal pain R10.30 Active 02191327 ALLERGIES No Information ENCOUNTERS Encounter Location Date Diagnosis [facility] [id number] [place] [address] July, Fungal rash of torso B36.9 [facility] [id number] [place] [address] May, [facility] [id number] [place] [address]80- 3811 Apr, Worst headache of life R51 and Pain aggravated by breathing R52 [facility] [id number] [place] [address] 91648- 3402 Apr, Pelvic pain R10.2 [facility] [address] [address] Apr, Bronchitis J40 [facility] [id number] [place] [address] 74992- 7288 Mar, Low back pain M54.5 [facility] [id number] [place] [address]12 Jan, Viral gastroenteritis A08.4 [facility] [address] [address] Dec, Bronchitis J40 [place] [address] [address] May, Barretts esophagus without dysplasia K22.70 ; Depression with anxiety F41.8 and Eczema of both upper extremities L30.9 [facility] [place] [address] 8[address] May, Sore throat J02.9 and Acute non-recurrent pansinusitis J01.40 [place] [address] [address]10[address] Apr, Barretts esophagus without dysplasia K22.70 and Depression with anxiety F41.8 [place] [address] [address] Mar, Barretts esophagus without dysplasia K22.70 ; Tobacco abuse Z72.0 and Depression with anxiety F41.8 [place] [address] [address] Jan, Barretts esophagus without dysplasia K22.70 ; Tobacco abuse Z72.0 and Depression with anxiety F41.8 [facility] [id number] [place] [address] Jan, Acute upper respiratory infection, unspecified J06.9 [place] [id number] [place] [address] 48891- 2856 Oct, Essential hypertension, hypertension with unspecified goal I10 ; Frequent headaches R51 ; Vitamin D deficiency E55.9 ; Screening breast examination Z12.39 ; Chronic diarrhea K52.9 and Lower abdominal pain R10.30 [place] [address] [address] July, Essential hypertension, hypertension with unspecified goal I10 ; Frequent headaches R51 ; Vitamin D deficiency E55.9 ; Chronic intractable headache, unspecified headache type R51 and Low back pain M54.5 [facility] [address], [place] [address] July, [facility] [id number] [address] July, Essential hypertension, hypertension with unspecified goal I10 and Fatigue R53.83 [facility] [address], [place] [address] Jun, Frequent headaches R51 [facility] [id number] [place] [address] 58860- 8948 Jun, [facility] [id number] [place] [address] 98047- 3468 Jun, [facility] [id number] [place] [address] 59099- 8988 May, [facility] [id number] [place] [address] 59133- 7063 May, [facility] [id number] [place] [address] 71150- 3615 May, [facility] [address], [place] [address] May, [facility] [address], [place] [address] May, [facility] [address], [place] [address] May, [facility] [id number] [place] [address] 64372- 1174 Apr, [facility] [address], [place] [address] Apr, [facility] [id number] [place] [address] 18 Apr, 2014 [facility] [place] [facility] [address] [id number] [place] [address]- 0874 16 Apr, 2014 [facility] [place] [facility] [address] [id number] [place] [address]- 9848 16 Apr, 2014 [facility] [place] [facility] [address] [id number] [place] [address]- 3543 16 Apr, 2014 [facility] [place] [facility] [address] [id number] [place] [address]- 8406 16 Apr, 2014 [facility] [place] [facility] [address] [id number] [place] [address]- 5283 Apr, [facility] [place] [facility] [address] [id number] [place] [address]- 1239 16 Apr, 2014 [facility] [place] [facility] [address] [id number] [place] [address]- 0466 15 Apr, 2014 [facility] [place] [facility] [address] [id number] [place] [address]- 3096 14 Apr, 2014 [facility] [place] [facility] [address] [id number] [place] [address]- 6701 14 Apr, 2014 [facility] [place] [facility] [address] [id number] [place] [address]- 4381 Jan, [facility] [place] [facility] [address] [id number] [place] [address]- 7213 Jan, [facility] [place] [facility] [address] [id number] [place] [address]- 4149 Jan, [facility] [place] [facility] [address] [id number] [place] [address]- 5616 Jan, [facility] [place] [facility] [address] [id number] [place] [address]- 0449 14 Jan, 2014 [facility] [place] [facility] [address] [id number] [place] [address]- 8434 14 Jan, 2014 [facility] [address] [facility] [id number], [place] [address] Jan, [facility] [id number], [place] [address] Jan, [facility] [id number], [place] [address] Jan, [facility] [id number], [place] [address] Jan, [facility] [address] [facility] [id number], [place] [address] Aug, [facility] [id number], [place] [address] Aug, IMMUNIZATIONS No Known Immunizations SOCIAL HISTORY Never Assessed REASON FOR VISIT Request Referral PLAN OF CARE VITAL SIGNS MEDICATIONS Unknown [...] without myelopathy Medical History Barretts Esophagus -2015 [place] with EGD Colonoscopy Surgical History hysterectomy abnormal cells and fibroids 2011 Surgical History appendectomy 2012 Surgical History dilatation and curettage and dental surgery 2008 Surgical History cystocele repair 2014 Surgical History bladder surgery pelvic sling 2012 Surgical History Oophorectomy 2013 Surgical History dental surgery teeth extractions Surgical History EGD/Colonoscopy 2015 Hospitalization History Pnuemonia 1996
--- OUTSIDE RECORDS SUMMARY | 2018-07-28 09:31 | XMS REPORT ---
Author Author AURELIA MALCOLM [facility] Address [address] [place] [address] Care Team Providers Care Stagecraft Teacher Name Role Phone MALCOLM AURELIA Unavailable PROBLEMS Type Condition ICD9-CM Code [id number] Code Onset Dates Condition Status SNOMED Code Problem Barretts esophagus without dysplasia K22.70 Active 542424697 Problem Vitamin D deficiency E55.9 Active 50706713 Problem Essential hypertension, hypertension with unspecified goal I10 Active 61541936 Problem Tobacco abuse Z72.0 Active 762528377 Problem Depression with anxiety F41.8 Active 953772185 Problem Low back pain M54.5 Active 462228908 Problem Frequent headaches R51 Active 06487198 Problem Chronic diarrhea K52.9 Active 062996434 Problem Lower abdominal pain R10.30 Active 80328945 ALLERGIES Substance Reaction Event Type Date Status Imitrex Unknown Drug Allergy Dec, Active Erythromycin Base Unknown Drug Allergy Dec, Active Aspirin Unknown Drug Allergy Dec, Active Tramadol Unknown Drug Allergy Dec, Active ENCOUNTERS Encounter Location Date Diagnosis [place] [address] [address] May, [facility] [id number] [place] [address]90- 2751 Apr, Worst headache of life R51 and Pain aggravated by breathing R52 [facility] [id number] [address] 6[address] Apr, Pelvic pain R10.2 [place] [id number] [place] [address] 17340- 4044 Apr, Bronchitis J40 [facility] [address], [place] [address]- 2[address] Mar, Low back pain M54.5 [facility] [id number] [place] [address]291 Jan, Viral gastroenteritis A08.4 [facility] [address] [address] Dec, Bronchitis J40 [place] [address] [address] May, Barretts esophagus without dysplasia K22.70 ; Depression with anxiety F41.8 and Eczema of both upper extremities L30.9 [facility] [place] [address] [address] May, Sore throat J02.9 and Acute non-recurrent pansinusitis J01.40 [place] [address] [address]- 6444 Apr, Barretts esophagus without dysplasia K22.70 and Depression with anxiety F41.8 [place] [address] [address]- 8[address] Mar, Barretts esophagus without dysplasia K22.70 ; Tobacco abuse Z72.0 and Depression with anxiety F41.8 [place] [address] [address]90- 9159 Jan, Barretts esophagus without dysplasia K22.70 ; Tobacco abuse Z72.0 and Depression with anxiety F41.8 [facility] [id number] [place] [address]697 [address]3670 Jan, Acute upper respiratory infection, unspecified J06.9 [place] [id number] [place] [address]90- 8076 Oct, Essential hypertension, hypertension with unspecified goal I10 ; Frequent headaches R51 ; Vitamin D deficiency E55.9 ; Screening breast examination Z12.39 ; Chronic diarrhea K52.9 and Lower abdominal pain R10.30 [place] [address] [address]- [address]44 July, Essential hypertension, hypertension with unspecified goal I10 ; Frequent headaches R51 ; Vitamin D deficiency E55.9 ; Chronic intractable headache, unspecified headache type R51 and Low back pain M54.5 [facility] [address], [place] [address] July, [facility] [id number] [address]- [address] July, Essential hypertension, hypertension with unspecified goal I10 and Fatigue R53.83 [facility] [address], [place] [address] Jun, Frequent headaches R51 [facility] [id number] [place] [address]78- 7848 Jun, [facility] [id number] [place] [address] 65770- 7744 Jun, [facility] [id number] [place] [address] 64686- 7470 May, [facility] [id number] [place] [address]45- 6112 May, [facility] [id number] [place] [address] 46991- 4575 May, [facility] [address], [place] [address]- 4790 May, [facility] [address], [place] [address]- 8555 May, [facility] [address], [place] [address]- 7415 May, [facility] [id number] [place] [address] 35226- 3526 Apr, [facility] [address] [address]- 6930 Apr, [facility] [id number] [place] [address]- 1364 18 Apr, 2014 [facility] [place] [facility] [address] [id number] [place] [address]- 8686 16 Apr, 2014 [facility] [place] [facility] [address] [id number] [place] [address]- 6690 16 Apr, 2014 [facility] [place] [facility] [address] [id number] [place] [address]- 5956 16 Apr, 2014 [facility] [place] [facility] [address] [id number] [place] [address]- 0127 16 Apr, 2014 [facility] [place] [facility] [address] [id number] [place] [address]- 7851 Apr, [facility] [place] [facility] [address] [id number] [place] [address]- 2859 16 Apr, 2014 [facility] [place] [facility] [address] [id number] [place] [address]- 6634 15 Apr, 2014 [facility] [place] [facility] [address] [id number] [place] [address]- 6923 14 Apr, 2014 [facility] [place] [facility] [address] [id number] [place] [address]- 5380 14 Apr, 2014 [facility] [place] [facility] [address] [id number] [place] [address]- 1286 Jan, [facility] [place] [facility] [address] [id number] [place] [address]- 0813 Jan, [facility] [place] [facility] [address] [id number] [place] [address]- 6077 Jan, [facility] [place] [facility] [address] [id number] [place] [address]- 0314 Jan, [facility] [place] [facility] [address] [id number] [place] [address]- 1381 14 Jan, 2014 [facility] [place] [facility] [address] [id number] [place] [address]- 6901 14 Jan, 2014 [facility] [address] [facility] [id number] [address]- 9[address] Jan, [facility] [id number], [place] [address]- 2425 Jan, [facility] [id number], [place] [address]- 8362 Jan, [facility] [id number], [place] [address]- 1765 Jan, [facility] [address] [facility] [id number] [address]- [address] Aug, [facility] [id number] [address] [address] Aug, IMMUNIZATIONS No Known Immunizations SOCIAL HISTORY Never Assessed REASON FOR VISIT congestion,cough, shortness of breath started 3 weeks ago- cannot keep food down , has black liquid stool JStrasserRN PLAN OF CARE Activity Details Follow Up prn Reason: VITAL SIGNS Height 66 in 2017-01-01 Weight 182.8 lbs 2017-01-01 Temperature 99.5 degrees Fahrenheit 2017-01-01 Heart Rate 104 bpm 2017-01-01 Respiratory Rate 22 2017-01-01 BMI 29.50 kg/m2 2017-01-01 Blood pressure systolic 112 mmHg 2017-01-01 Blood pressure diastolic 70 mmHg 2017-01-01 MEDICATIONS Medication Instructions Dosage Frequency Start Date End Date Duration Status ProAir HFA 108 (90 Base) MCG/ACT Inhalation every 4 hrs 2 puffs as needed 4h Dec, 7 days Active Doxycycline Hyclate 100 MG Orally every 12 hrs 1 capsule 12h Dec, Dec, 10 days Active PredniSONE 20 MG Orally Once a day 2 tablet 24h Dec, Dec, 5 days Active RESULTS No Results PROCEDURES Procedure Date Ordered Result Body Site ALBUTEROL UNIT DOSE FORM INHALED 2017-01-01 N/A ALBUTEROL INHAL UNIT DOSE 1 MG Jan 01, 2017 INSTRUCTIONS MEDICATIONS ADMINISTERED No Known Medications [...] disc without myelopathy Medical History Barretts Esophagus [place] with EGD Colonoscopy Surgical History hysterectomy abnormal cells and fibroids 2011 Surgical History appendectomy 2012 Surgical History dilatation and curettage and dental surgery 2008 Surgical History cystocele repair 2014 Surgical History bladder surgery pelvic sling 2012 Surgical History Oophorectomy 2012 Surgical History dental surgery teeth extractions Surgical History EGD/Colonoscopy 2016 Hospitalization History Pnuemonia 1996
--- OUTSIDE RECORDS SUMMARY | 2018-07-28 09:32 | XMS REPORT ---
Author Author AURELIA [facility] Address [address] [place] [address] Care Team Providers Care Precipitate Washer Name Role Phone GOLD AURELIA Unavailable PROBLEMS Type Condition ICD9-CM Code [id number] Code Onset Dates Condition Status SNOMED Code Problem Barretts esophagus without dysplasia K22.70 Active 012540303 Problem Vitamin D deficiency E55.9 Active 52427313 Problem Essential hypertension, hypertension with unspecified goal I10 Active 46145239 Problem Tobacco abuse Z72.0 Active 546762296 Problem Depression with anxiety F41.8 Active 172823626 Problem Low back pain M54.5 Active 755586301 Problem Frequent headaches R51 Active 25259809 Problem Chronic diarrhea K52.9 Active 803414168 Problem Lower abdominal pain R10.30 Active 33869594 ALLERGIES Substance Reaction Event Type Date Status Imitrex Unknown Drug Allergy Jan, Active Erythromycin Base Unknown Drug Allergy Jan, Active Aspirin Unknown Drug Allergy Jan, Active Tramadol Unknown Drug Allergy Jan, Active ENCOUNTERS Encounter Location Date Diagnosis [facility] [address] [address] July, Fungal rash of torso B36.9 [facility] [address] [address] May, [facility] [id number] [place] [address] Apr, Worst headache of life R51 and Pain aggravated by breathing R52 [facility] [id number] [place] [address] Apr, Pelvic pain R10.2 [facility] [id number] [place] [address] Apr, Bronchitis J40 [facility] [address] [address] Mar, Low back pain M54.5 [facility]ALK IN [place] [address] [address] Jan, Viral gastroenteritis A08.4 [facility] IN [address] [address] Dec, Bronchitis J40 [facility] [address] [address] May, Barretts esophagus without dysplasia K22.70 ; Depression with anxiety F41.8 and Eczema of both upper extremities L30.9 [facility]ALK IN [address] [address] May, Sore throat J02.9 and Acute non-recurrent pansinusitis J01.40 [place] [address] [address] Apr, Barretts esophagus without dysplasia K22.70 and Depression with anxiety F41.[address] [address] Mar, Barretts esophagus without dysplasia K22.70 ; Tobacco abuse Z72.0 and Depression with anxiety F41.8 [place] [address] [address] Jan, Barretts esophagus without dysplasia K22.70 ; Tobacco abuse Z72.0 and Depression with anxiety F41.8 [facility] IN [place] [address] [address] Jan, Acute upper respiratory infection, unspecified J06.9 [place] [address] [address] Oct, Essential hypertension, hypertension with unspecified goal I10 ; Frequent headaches R51 ; Vitamin D deficiency E55.9 ; Screening breast examination Z12.39 ; Chronic diarrhea K52.9 and Lower abdominal pain R10.30 [facility] [address] [address] July, Essential hypertension, hypertension with unspecified goal I10 ; Frequent headaches R51 ; Vitamin D deficiency E55.9 ; Chronic intractable headache, unspecified headache type R51 and Low back pain M54.5 [facility] [address] [place] [id number] [place] [address] July, [facility] [address] [place] [id number] [place] [address] July, Essential hypertension, hypertension with unspecified goal I10 and Fatigue R53.83 [facility]ALK IN [facility] [address] [place] [id number] [place] [address] Jun, Frequent headaches R51 [facility] [address] [place] [id number] [place] [address] Jun, [facility] [address] [place] [id number] [place] [address] 18[address] Jun, [facility] [address] [place] [id number] [place] [address] May, [facility] [address] [place] [id number] [place] [address] May, [facility] [address] [place] [address] May, [facility] [address] [place] [id number] [place] [address] May, [facility] [address] [place] [id number] [place] [address] May, [facility] [address] [place] [id number] [place] [address] May, [facility] [address] [place] [id number] [place] [address] Apr, [facility] [place] [facility] [address] [id number] [place] [address] 23 Apr, 2014 [facility] [place] [facility] [address] [id number] [place] [address] 18 Apr, 2014 [facility] [place] [facility] [address] [id number] [place] [address] 16 Apr, 2014 [facility] [place] [facility] [address] [id number] [place] [address] 16 Apr, 2014 [facility] [place] [facility] [address] [id number] [place] [address] 16 Apr, 2014 [facility] [place] [facility] [address] [id number] [place] [address] Apr, [facility] [place] [facility] [address] [id number] [place] [address] 16 Apr, 2014 [facility] [place] [facility] [address] [id number] [place] [address] Apr, [facility] [place] [facility] [address] [id number] [place] [address] Apr, [facility] [place] [facility] [address] [id number] [place] [address] 14 Apr, 2014 [facility] [place] [facility] [address] [id number] [place] [address] 8[address] 14 Apr, 2014 [facility] [place] [facility] [address] [id number] [place] [address] Jan, [facility] [place] [facility] [address] [id number] [place] [address] Jan, [facility] [place] [facility] [address] [id number] [place] [address] Jan, [facility] [place] [facility] [address] [id number] [place] [address] 67[address] 24 Jan, 2014 [facility] [place] [facility] [address] [id number] [place] [address] Jan, [facility] [address] [facility] [id number] [address] Jan, [facility] [address] Jan, [facility] [address] [place] [id number] Jan, [facility] [address] [address] Jan, [facility] [address] Jan, [facility] [address] Aug, [facility] [address] [address] Aug, IMMUNIZATIONS No Known Immunizations SOCIAL HISTORY Never Assessed REASON FOR VISIT N/V/D for 4 days. [email or web address] PLAN OF CARE Activity Details Follow Up prn Reason: VITAL SIGNS Height 66 in 2017-02-28 Weight 186.6 lbs 2017-02-28 Temperature 97.8 degrees Fahrenheit 2017-02-28 Heart Rate 88 bpm 2017-02-28 Respiratory Rate 20 2017-02-28 BMI 30.11 kg/m2 2017-02-28 Blood pressure systolic 124 mmHg 2017-02-28 Blood pressure diastolic 84 mmHg 2017-02-28 MEDICATIONS Medication Instructions Dosage Frequency Start Date End Date Duration Status Clonazepam 0.5 MG Orally Twice a day pm 1 tablet 28 days Not- Taking Clobetasol Propionate 0.05 % Externally Twice a day 1 application to affected area 12h May, Not-Taking Atenolol 50 mg Orally Once a day 1 tablet 24h 30 day(s) Not-Taking Flonase Allergy Relief 50 MCG/ACT Nasally Once a day 1 spray in each nostril 24h 24 May, 2016 30 day(s) Not-Taking Carafate 1 GM Orally QID 1 tablet on an empty stomach 6h Not- Taking Zofran ODT 4 MG Orally every 8 hrs 1 tablet on the tongue and allow to dissolve 8h Jan, 3 days Active Pantoprazole Sodium 20 MG Orally Once a day 2 tablets 24h Not- Taking ProAir HFA 108 (90 Base) MCG/ACT Inhalation every 4 hrs 2 puffs as needed 4h Dec, 7 days Not-Taking Topamax 200 MG Orally Twice a day 1 tablet 12h Not-Taking Gabapentin 100 MG Orally Three times a day 1 capsule 8h Active RESULTS No Results PROCEDURES No Known [...] disc without myelopathy Medical History Barretts Esophagus [place] with EGD Colonoscopy Surgical History hysterectomy abnormal cells and fibroids 2011 Surgical History appendectomy 2012 Surgical History dilatation and curettage and dental surgery 2008 Surgical History cystocele repair 2014 Surgical History bladder surgery pelvic sling 2012 Surgical History Oophorectomy 2012 Surgical History dental surgery teeth extractions Surgical History EGD/Colonoscopy 2015 Hospitalization History Pnuemonia 1996
--- OUTSIDE RECORDS SUMMARY | 2018-07-28 09:32 | XMS REPORT ---
Author Author LILLIAM Richards Organization [facility] Address [address] [place] [address] Care Team Providers Care Nurse Research Name Role Phone LILLIAM Richards Unavailable PROBLEMS Type Condition ICD9-CM Code [id number] Code Onset Dates Condition Status SNOMED Code Problem Barretts esophagus without dysplasia K22.70 Active 068419686 Problem Vitamin D deficiency E55.9 Active 87989641 Problem Essential hypertension, hypertension with unspecified goal I10 Active 53338967 Problem Tobacco abuse Z72.0 Active 289614523 Problem Depression with anxiety F41.8 Active 300891072 Problem Low back pain M54.5 Active 811770241 Problem Frequent headaches R51 Active 17001051 Problem Chronic diarrhea K52.9 Active 474840487 Problem Lower abdominal pain R10.30 Active 83039520 ALLERGIES Substance Reaction Event Type Date Status Imitrex Unknown Drug Allergy Mar, Active Erythromycin Base Unknown Drug Allergy Mar, Active Aspirin Unknown Drug Allergy Mar, Active Tramadol Unknown Drug Allergy Mar, Active ENCOUNTERS Encounter Location Date Diagnosis [facility] [address] [address] July, Fungal rash of torso B36.9 [facility] [address] [address] May, [facility] [address] [address] Apr, Worst headache of life R51 and Pain aggravated by breathing R52 [facility] [address] [address] Apr, Pelvic pain R10.2 [facility] [address] [place] [id number] [place] [address] Apr, Bronchitis J40 [facility] [address] [address] Mar, Low back pain M54.5 [facility]ALK IN [place] [address] [address] Jan, Viral gastroenteritis A08.4 [facility] IN [place] [address] [address] Dec, Bronchitis J40 [place] [address] [address] May, Barretts esophagus without dysplasia K22.70 ; Depression with anxiety F41.8 and Eczema of both upper extremities L30.9 [facility] W[facility] IN [address] [address] May, Sore throat J02.9 and Acute non-recurrent pansinusitis J01.40 [place] [address] [address] Apr, Barretts esophagus without dysplasia K22.70 and Depression with anxiety F41.8 [place] [address] [address] Mar, Barretts esophagus without dysplasia K22.70 ; Tobacco abuse Z72.0 and Depression with anxiety F41.8 [place] [address] [address] Jan, Barretts esophagus without dysplasia K22.70 ; Tobacco abuse Z72.0 and Depression with anxiety F41.8 [facility] WALK IN [address] [address] Jan, Acute upper respiratory infection, unspecified J06.9 [place] [address] [address] Oct, Essential hypertension, hypertension with unspecified goal I10 ; Frequent headaches R51 ; Vitamin D deficiency E55.9 ; Screening breast examination Z12.39 ; Chronic diarrhea K52.9 and Lower abdominal pain R10.30 [facility] [address] [place] [id number] [place] [address] July, Essential hypertension, hypertension with unspecified goal I10 ; Frequent headaches R51 ; Vitamin D deficiency E55.9 ; Chronic intractable headache, unspecified headache type R51 and Low back pain M54.5 [facility] [address] [place] [id number] [place] [address] July, [facility] [address] [place] [id number] [place] [address] July, Essential hypertension, hypertension with unspecified goal I10 and Fatigue R53.83 [facility] IN [facility] [address] [place] [id number] [place] [address] Jun, Frequent headaches R51 [facility] [address] [place] [id number] [place] [address]- [address]653 Jun, [facility] [address] [place] [id number] [place] [address]- 3543 Jun, [facility] [address] [place] [id number] [place] [address]- 3319 May, [facility] [address] [place] [id number] [place] [address]- 5249 May, [facility] [address] [place] [id number] [place] [address]- 6591 May, [facility] [address] [place] [id number] [place] [address]- 4400 May, [facility] [address] [place] [id number] [place] [address]- 7708 May, [facility] [address] [place] [id number] [place] [address]73- 2137 May, [facility] [address] [place] [id number] [place] [address]- [address] Apr, [facility] [place] [facility] [address] [id number] [place] [address]- 3099 Apr, [facility] [place] [facility] [address] [id number] [place] [address]- 0369 Apr, [facility] [place] [facility] [address] [id number] [place] [address]- 6465 Apr, [facility] [place] [facility] [address] [id number] [place] [address]- 2251 Apr, [facility] [place] [facility] [address] [id number] [place] [address]- 6947 Apr, [facility] [place] [facility] [address] [id number] [place] [address]- 3161 Apr, [facility] [place] [facility] [address] [id number] [place] [address]- 3082 Apr, [facility] [place] [facility] [address] [id number] [place] [address]- 74[address] Apr, [facility] [place] [facility] [address] [id number] [place] [address]- 0424 Apr, [facility] [place] [facility] [address] [id number] [address]- 100[address] Apr, [facility] [place] [facility] [address] [id number] [address] 6[address] Apr, [facility] [place] [facility] [address] [id number] [address] Jan, [facility] [place] [facility] [address] [id number] [place] [address]- 8925 Jan, [facility] [place] [facility] [address] [id number] [place] [address]- 8362 Jan, [facility] [place] [facility] [address] [id number] [address]- [address] Jan, [facility] [place] [facility] [address] [id number] [address] Jan, [facility] [address] [place] [id number] [address] Jan, [facility] [address] [place] [id number] [address] Jan, [facility] [address] [place] [id number] [address] Jan, [facility] [address] [place] [id number] Jan, [facility] [address] [address] 3[address] Jan, [facility] [address] [place] [id number] [address] Aug, [facility] [address] [place] [id number] [address] Aug, IMMUNIZATIONS No Known Immunizations SOCIAL HISTORY Never Assessed REASON FOR VISIT UTI symptoms, lower back, difficulty urinating, has been taking cranberry with no relief, started a week ago-Delilah PLAN OF CARE Activity Details Follow Up 2 Weeks, prn Reason: VITAL SIGNS Height 66 in 2017-03-11 Weight 186 lbs 2017-03-11 Temperature 98.0 degrees Fahrenheit 2017-03-11 Heart Rate 84 bpm 2017-03-11 Respiratory Rate 20 2017-03-11 BMI 30.02 kg/m2 2017-03-11 Blood pressure systolic 122 mmHg 2017-03-11 Blood pressure diastolic 80 mmHg 2017-03-11 MEDICATIONS Medication Instructions Dosage Frequency Start Date End Date Duration Status Flonase Allergy Relief 50 MCG/ACT Nasally Once a day 1 spray in each nostril 24h May, 30 day(s) Not-Taking Pantoprazole Sodium 20 MG Orally Once a day 2 tablets 24h Not- Taking Atenolol 50 mg Orally Once a day 1 tablet 24h 30 day(s) Not-Taking Naprosyn 500 mg Orally every 12 hrs 1 tablet with food or milk as needed 12h Mar, Active Cyclobenzaprine HCl 10 mg Orally Three times a day 1 tablet as needed 8h 11 Mar, 2017 Mar, 10 days Active Topamax 200 MG Orally Twice a day 1 tablet 12h Not-Taking Clobetasol Propionate 0.05 % Externally Twice a day 1 application to affected area 12h May, Not-Taking Carafate 1 GM Orally QID 1 tablet on an empty stomach 6h Not- Taking ProAir HFA 108 (90 Base) MCG/ACT Inhalation every 4 hrs 2 puffs as needed 4h Dec, 7 days Not-Taking Clonazepam 0.5 MG Orally Twice a day pm 1 tablet 28 days Not- Taking Gabapentin 100 MG Orally Three times a day 1 capsule 8h Not-Taking Zofran ODT 4 MG Orally every 8 hrs 1 tablet on the tongue and allow to dissolve 8h Jan, 3 days Not-Taking RESULTS Name Result Date Reference Range UA LONG DIP (IN HOUSE) 2017-03-11 Lot # [id number] Exp date 12/29/2017 Clarity Clear Color Yellow Odor None GLU Negative JULISA Negative KET Negative SG 1.015 BLO Negative pH 6.5 Protein Negative URO 0.2 NIT Negative SHERLYN Negative Lot # Exp date PROCEDURES Procedure Date Ordered Result Body Site URINALYSIS, AUTO, W/O SCOPE Mar 11, 2017 INSTRUCTIONS MEDICATIONS ADMINISTERED No Known Medications [...] disc without myelopathy Medical History Barretts Esophagus [place] with EGD Colonoscopy Surgical History hysterectomy abnormal cells and fibroids 2011 Surgical History appendectomy 2012 Surgical History dilatation and curettage and dental surgery 2009 Surgical History cystocele repair 2015 Surgical History bladder surgery pelvic sling 2012 Surgical History Oophorectomy 2013 Surgical History dental surgery teeth extractions Surgical History EGD/Colonoscopy 2015 Hospitalization History Pnuemonia 1995
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
[2018-07-28] MEDS ORDERED: DICL100T83 PO (09:41)
[2018-07-28] MEDS ORDERED: ZOLP10TA PO (09:41)
[2018-07-28] MEDS ORDERED: AMIT150T PO (09:41)
[2018-07-28] MEDS ORDERED: PANTOPRAZOLE 40 MG (PROTONIX) VIAL IV ONE (10:00)
[2018-07-28] MEDS ORDERED: LIDOCAINE 2% VISCOUS 15 ML UDC PO ONE (10:00)
[2018-07-28] MEDS ORDERED: ANTACID SUSP 30 ML UDC (MYLANTA) PO ONE (10:00)
[2018-07-28] MEDS ORDERED: NS IV 1000 ML 1,000 ML IV SCH (10:00)
--- NOTE | 2018-07-28 10:03 | ED EENT ---
History of Present Illness General Chief Complaint: Oral/Throat Problems Stated Complaint: SOA Nursing Triage Note: pt presents to ed with complaints of vomiting, sore throat, difficulty swollowing, and feels like her throat is swollen starting at 0700 this am. Source: patient, family Exam Limitations: no limitations History of Present Illness Date Seen by Provider: Jul 28, 2018 Time Seen by Provider: 09:53 Initial Comments Without patient presents to ER by private conveyance with chief complaint of driving home from [employer] she stopped at [employer] got a soda to drink and then her throat circulation something lodged in the back of her throat. She's not been eating anything. She does not history of esophageal strictures or having dilatations done. She has had EGD performed by Dr. 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 She has had some spitting up of small amount of saliva with tiny traces of blood in it. She does not take antacids. Allergies and Home Medications Allergies Coded Allergies: aspirin (Verified Allergy, Unknown, PATIENT TAKES MOTRIN AT HOME, 06/10/07) erythromycin base (Verified Allergy, Unknown, 09/21/12) tramadol (Unverified Allergy, Unknown, VOMITING, 09/23/14) venom-wasp (Unverified Allergy, Unknown, 10/21/13) sumatriptan (Verified Adverse Reaction, Mild, NAUSEA, 08/01/15) Vomits with oral form, no reaction with injectable form sumatriptan succinate (Verified Adverse Reaction, Mild, NAUSEA, 08/01/15) Vomits with oral form, no reaction with injectable form Home Medications Amitriptyline HCl 150 Mg Tablet, 125 MG PO HS, (Reported) Patient Home Medication List Home Medication List Reviewed: Yes Review of Systems Review of Systems Constitutional: No chills, No diaphoresis Eyes: Denies Blindness, Denies Blurred Vision Ears: Denies Dizziness, Denies Pain Nose: denies clots; congestion Mouth: denies clots, denies loose teeth, denies pain, denies swelling, denies bloody discharge, denies purulent discharge Throat: pain; denies swelling; hoarse, painful swallowing, difficulty with fluids, other (erythematous 1+ tonsils and adenoids without purulence) Respiratory: No cough, No phlegm, No short of breath Cardiovascular: No chest pain, No edema Gastrointestinal: No abdominal pain, No constipation Past Rqmlpit-Ilhbjq-Qarary Hx Patient Social History Alcohol Use: Denies Use Recreational Drug Use: No Type Used: Cigarettes Recent Foreign Travel: No Contact w/Someone Who Travel: No Recent Infectious Disease Expo: No Recent Hopitalizations: No Physical Abuse: No Sexual Abuse: No Mistreated: No Fear: No Immunizations Up To Date Tetanus Booster (TDap): Less than 5yrs Date of Pneumonia Vaccine: Apr 01, 2012 Date of Influenza Vaccine: Dec 30, 2013 Seasonal Allergies Seasonal Allergies: Yes Past Medical History Surgeries: Yes (DENTAL SX, ANTERIOR REPAIR) Abdominal, Appendectomy, Bladder Surgery, Gallbladder, 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, Oophorectomy, Tubal Ligation Respiratory: No Cardiac: No Neurological: Yes Headaches /Migraines, Stroke 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 Sexually Transmitted Disease: No HIV/AIDS: No Gastrointestinal: Yes (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) Gastroesophageal Reflux, Espinosa's Esophagus, Ulcer Musculoskeletal: Yes Rheumatoid Arthritis, Scoliosis, Chronic Back Pain Endocrine: No Cancer: Yes Uterine Psychosocial: Yes Anxiety, Depression Integumentary: No Blood Disorders: No Adverse Reaction/Blood Tranf: No Family Medical History Alcoholism 19 FATHER Cardiovascular disease 19 FATHER Dementia 19 MOTHER Drug abuse 19 FATHER FH: cancer 19 FATHER 19 MOTHER (ESPHAGUS) Myocardial infarction 19 FATHER Psychosocial problem 19 FATHER Thyroid disease 19 MOTHER G8 BROTHER G8 SISTER No Family History of: AIDS Alzheimer's disease Arthritis Asthma Cancer of mouth Cataracts Colon cancer Completed stroke Diabetes mellitus Glaucoma Hypertension Kidney disease Parkinson's disease Prostate cancer Respiratory disorder Seizure disorder Severe allergy Tuberculosis Cancer, Stroke, Other Conditions/Hx Physical Exam Vital Signs Vital Signs - First Documented 07/28/18 09:30 Temp 96.9 Pulse 110 Resp 20 B/P (MAP) 173/110 (131) Pulse Ox 100 Height, Weight, BMI Height: 5'7.00" Weight: 211lbs. 4.0oz. 95.424426fy; 31.0 BMI Method:Stated General Appearance: WD/WN, other (anxious, tearful) Eyes: bilateral eye normal inspection, bilateral eye PERRL, bilateral eye EOMI Ears: bilateral ear auricle normal, bilateral ear canal normal, bilateral ear TM normal Nose: normal inspection; No active bleeding Mouth/Throat: normal mouth inspection (no tongue or soft tissue swelling. Mild erythema of the tonsils without purulence); No dental tenderness; tonsillar swelling (mild); No uvula swelling Neck: non-tender, full range of motion Cardiovascular: normal peripheral pulses, regular rate, rhythm Respiratory: no respiratory distress, no accessory muscle use Gastrointestinal: normal bowel sounds, non tender, soft Progress/Results/Core Measures Results/Orders Lab Results Laboratory Tests Test 07/28/18 09:44 07/28/18 10:40 Range/Units White Blood Count 13.7 H 4.3-11.0 10^3/uL Red Blood Count 5.11 4.35-5.85 10^6/uL Hemoglobin 17.1 H 11.5-16.0 G/DL Hematocrit 48 35-52 % Mean Corpuscular Volume 95 80-99 FL Mean Corpuscular Hemoglobin 34 25-34 PG Mean Corpuscular Hemoglobin Concent 35 32-36 G/DL Red Cell Distribution Width 12.8 10.0-14.5 % Platelet Count 144 130-400 10^3/uL Mean Platelet Volume 11.0 H 7.4-10.4 FL Neutrophils (%) (Auto) 72 42-75 % Lymphocytes (%) (Auto) 18 12-44 % Monocytes (%) (Auto) 7 0-12 % Eosinophils (%) (Auto) 2 0-10 % Basophils (%) (Auto) 0 0-10 % Neutrophils # (Auto) 9.9 H 1.8-7.8 X 10^3 Lymphocytes # (Auto) 2.5 1.0-4.0 X 10^3 Monocytes # (Auto) 0.9 0.0-1.0 X 10^3 Eosinophils # (Auto) 0.3 0.0-0.3 10^3/uL Basophils # (Auto) 0.1 0.0-0.1 10^3/uL Sodium Level 137 135-145 MMOL/L Potassium Level 3.9 3.6-5.0 MMOL/L Chloride Level 103 98-107 MMOL/L Carbon Dioxide Level 21 21-32 MMOL/L Anion Gap 13 5-14 MMOL/L Blood Urea Nitrogen 10 7-18 MG/DL Creatinine 0.75 0.60-1.30 MG/DL Estimat Glomerular Filtration Rate > 60 BUN/Creatinine Ratio 13 Glucose Level 109 H 70-105 MG/DL Calcium Level 10.3 H 8.5-10.1 MG/DL Corrected Calcium 9.9 8.5-10.1 MG/DL Total Bilirubin 0.3 0.1-1.0 MG/DL Aspartate Amino Transf (AST/SGOT) 40 H 5-34 U/L Alanine Aminotransferase (ALT/SGPT) 76 H 0-55 U/L Alkaline Phosphatase 168 H 40-136 U/L C-Reactive Protein High Sensitivity 0.27 0.00-0.50 MG/DL Total Protein 7.5 6.4-8.2 GM/DL Albumin 4.5 3.2-4.5 GM/DL My Orders Orders - DASH AGOSTO Ct Neck (Soft Tissue) W (07/28/18 10:00) Cbc With Automated Diff (07/28/18 10:00) Comprehensive Metabolic Panel (07/28/18 10:00) Hs C Reactive Protein (07/28/18 10:00) Rapid Strep A Screen (07/28/18 10:00) Ed Iv/Invasive Line Start (07/28/18 10:00) Ns Iv 1000 Ml (Sodium Chloride 0.9%) (07/28/18 10:00) Lidocaine 2% Viscous 15 Ml (Xylocaine Vi (07/28/18 10:00) Antacid Suspension (Mylanta Suspension (07/28/18 10:00) Pantoprazole Injection (Protonix Injecti (07/28/18 10:00) Iohexol Injection (Omnipaque 350 Mg/Ml 1 (07/28/18 10:15) Received Contrast (Hold Metformin- Contr (07/28/18 10:15) Medications Given in ED Current Medications Medications Dose Ordered Sig/Mahi Route Start Time Stop Time Status Last Admin Dose Admin Al Hydrox/Mg Hydrox/Simethicone 30 ml ONCE ONCE PO 07/28/18 10:00 07/28/18 10:03 DC 07/28/18 10:30 30 ML Iohexol 75 ml ONCE ONCE IV 07/28/18 10:15 07/28/18 10:16 DC 07/28/18 10:22 75 ML Lidocaine HCl 15 ml ONCE ONCE PO 07/28/18 10:00 07/28/18 10:03 DC 07/28/18 10:30 15 ML Pantoprazole 40 mg ONCE ONCE IV 07/28/18 10:00 07/28/18 10:03 DC 07/28/18 10:30 40 MG Vital Signs/I&O 07/28/18 09:30 Temp 96.9 Pulse 110 Resp 20 B/P (MAP) 173/110 (131) Pulse Ox 100 Blood Pressure Mean: 131 Progress Progress Note : Time: 10:58 Progress Note Suspect she has a viral illness but we'll do a rapid strep. The patient does not have any history of having been eating something and she has no airway compromise. Her vitals are normal she is afebrile. We'll start with saltwater gargle. No evidence of lingual edema, angioedema or anaphylaxis. Diagnostic Imaging Diagonstic Imaging: CT (with contrast) Plain Films/CT/US/NM/MRI: other (neck soft tissue) Comments NAME: ISHAN ROJAS [facility] REC#: [id number] PT STATUS: REG ER : 1975 PHYSICIAN: DASH AGOSTO MD ADMIT DATE: 07/28/18/ER Draft Date of Exam:07/28/18 CT NECK (SOFT TISSUE) W PROCEDURE: CT neck soft tissue with contrast. TECHNIQUE: Multiple contiguous axial images were obtained through the neck after the administration of contrast. Auto Exposure Controls were utilized during the CT exam to meet ALARA standards for radiation dose reduction. INDICATION: Sore throat. FINDINGS: The visualized intracranial structures are unremarkable. The visualized paranasal sinuses and mastoid air cells are clear. The parotid, submandibular and thyroid glands are normal in appearance. The lung apices demonstrate a few blebs. The major vascular structures of the neck enhance in a normal fashion. There is mild cervical spondylosis. The prevertebral soft tissues are within normal limits. Epiglottis is unremarkable. There is some diffuse inflammation of the adenoids which are mildly hyperemic. There is, however, no distortion of the fat planes to suggest underlying mass. The oropharyngeal soft tissues are symmetric without mass effect. Hypopharyngeal tissues are also unremarkable. Vocal cords are midline. There is no pathologically enlarged adenopathy or mass in the neck. IMPRESSION: 1. Findings compatible with adenoid inflammation bilaterally without evidence of parapharyngeal abscess. Additionally, there is no distortion of fat planes to suggest underlying mass. 2. There are a few blebs along the apices likely reflecting some early emphysematous disease. 3. No other acute abnormality in the neck. Dictated on workstation # [id number] Dict: 07/28/18 1038 Trans: 07/28/18 1053 KB [id number] Interpreted by: ADI LING MD Electronically signed by: Reviewed: Reviewed by Me Departure Impression Primary Impression: Acute infective adenoiditis Disposition: HOME, SELF-CARE Condition: Stable Departure-Patient Inst. Decision time for Depature: 11:00 Referrals: [facility] [place] (PCP/Family) Primary Care Physician RENÉE LEON DO Patient Instructions: Viral Pharyngitis (DC) Add. Discharge Instructions: You have probably a viral infection of your throat. You should do saltwater gargles, throat lozenges or chloracetic sprays as necessary for symptoms. Stick to a liquid diet if it's easier to swallow. Call Dr. Leon's office at your convenience in pursue follow-up with a jig worker for your history of Espinosa's esophagus. Humidifiers, hot tea with lemon or honey and vapor rubs such as Vicks or Mentholatum can be helpful. Return to the ER if you have difficulty breathing or other concerning symptoms. ll discharge instructions reviewed with patient and/or family. Voiced understanding. Work/School Note: Work Release Form Date Seen in the Emergency Department: Jul 28, 2018 Return to Work: Jul 29, 2018 Restrictions: No Restrictions DASH AGOSTO Jul 28, 2018 10:03
[2018-07-28 10:14] LABS: BASOPHILS # (AUTO) 0.1 10^3/uL (0.0-0.1); BASOPHILS % (AUTO) 0 % (0-10); EOSINOPHILS # (AUTO) 0.3 10^3/uL (0.0-0.3); EOSINOPHILS % (AUTO) 2 % (0-10); HEMATOCRIT 48 % (35-52); HEMOGLOBIN 17.1 G/DL (11.5-16.0); LYMPHOCYTES # (AUTO) 2.5 X 10^3 (1.0-4.0); LYMPHOCYTES % (AUTO) 18 % (12-44); MEAN CORPUSCULAR HEMOGLOBIN 34 PG (25-34); MEAN CORPUSCULAR HGB CONC 35 G/DL (32-36); MEAN CORPUSCULAR VOLUME 95 FL (80-99); MONOCYTES # (AUTO) 0.9 X 10^3 (0.0-1.0); MONOCYTES % (AUTO) 7 % (0-12); NEUTROPHILS # (AUTO) 9.9 X 10^3 (1.8-7.8); NEUTROPHILS % (AUTO) 72 % (42-75); PLATELET COUNT 144 10^3/uL (130-400); RED CELL DISTRIBUTION WIDTH 12.8 % (10.0-14.5); WHITE BLOOD COUNT 13.7 10^3/uL (4.3-11.0)
[2018-07-28] MEDS ORDERED: HOLD METFORMIN - RECEIVED CONTRAST 20 ML VIAL IV SCH (10:15)
[2018-07-28] MEDS ORDERED: IOHEXOL 350 MG/ML 100 ML (OMNIPAQUE 350) VIAL IV ONE (10:15)
--- NOTE | 2018-07-28 10:24 | NUR ---
PT BACK FROM CT AT THIS TIME
[2018-07-28 10:27] LABS: ALANINE AMINOTRANSFERASE 76 U/L (0-55); ALBUMIN 4.5 GM/DL (3.2-4.5); ALKALINE PHOSPHATASE 168 U/L (40-136); BILIRUBIN,TOTAL 0.3 MG/DL (0.1-1.0); BUN/CREATININE RATIO 13; CALCIUM 10.3 MG/DL (8.5-10.1); CARBON DIOXIDE 21 MMOL/L (21-32); CHLORIDE 103 MMOL/L (98-107); CREATININE SERUM 0.75 MG/DL (0.60-1.30); GFR ESTIMATED > 60; GLUCOSE 109 MG/DL (70-105); POTASSIUM 3.9 MMOL/L (3.6-5.0); SODIUM 137 MMOL/L (135-145); TOTAL PROTEIN 7.5 GM/DL (6.4-8.2)
--- NOTE | 2018-07-28 10:54 | Diagnostic Imaging Report ---
PROCEDURE: CT neck soft tissue with contrast. TECHNIQUE: Multiple contiguous axial images were obtained through the neck after the administration of contrast. Auto Exposure Controls were utilized during the CT exam to meet ALARA standards for radiation dose reduction. INDICATION: Sore throat. FINDINGS: The visualized intracranial structures are unremarkable. The visualized paranasal sinuses and mastoid air cells are clear. The parotid, submandibular and thyroid glands are normal in appearance. The lung apices demonstrate a few blebs. The major vascular structures of the neck enhance in a normal fashion. There is mild cervical spondylosis. The prevertebral soft tissues are within normal limits. Epiglottis is unremarkable. There is some diffuse inflammation of the adenoids which are mildly hyperemic. There is, however, no distortion of the fat planes to suggest underlying mass. The oropharyngeal soft tissues are symmetric without mass effect. Hypopharyngeal tissues are also unremarkable. Vocal cords are midline. There is no pathologically enlarged adenopathy or mass in the neck. IMPRESSION: 1. Findings compatible with adenoid inflammation bilaterally without evidence of parapharyngeal abscess. Additionally, there is no distortion of fat planes to suggest underlying mass. 2. There are a few blebs along the apices likely reflecting some early emphysematous disease. 3. No other acute abnormality in the neck. Dictated by: Dictated on workstation # [id number]
[2018-07-28 11:11] VITALS: BP 147/110
== END 2018-07-28 11:11 | disposition home or self-care (01) ==
LOC: EDUNIT# 09:24 → ER 09:25
DX: J03.90 Acute tonsillitis, unspecified (principal); G43.909 Migraine, unspecified, not intractable, without status migrainosus; K21.9 Gastro-esophageal reflux disease without esophagitis; M06.9 Rheumatoid arthritis, unspecified; M41.9 Scoliosis, unspecified; F41.9 Anxiety disorder, unspecified; F32.9 Major depressive disorder, single episode, unspecified; Z85.42 Personal history of malignant neoplasm of other parts of uterus; Z88.6 Allergy status to analgesic agent; Z91.041 Radiographic dye allergy status; Z88.8 Allergy status to other drugs, medicaments and biological substances; Z82.49 Family history of ischemic heart disease and other diseases of the circulatory system; Z80.0 Family history of malignant neoplasm of digestive organs; Z87.19 Personal history of other diseases of the digestive system; Z90.49 Acquired absence of other specified parts of digestive tract; Z98.890 Other specified postprocedural states; Z90.710 Acquired absence of both cervix and uterus; Z98.51 Tubal ligation status; Z86.73 Personal history of transient ischemic attack (TIA), and cerebral infarction without residual deficits
CPT/HCPCS: 36415; 70491; 80053; 85025; 86141; 87430; 96361; 96374

== ENCOUNTER 2019-04-07 05:45 | Outpatient (CLI) | payer MEDICAID ==
[~2019-04-07] VITALS: Ht 167 cm; Wt 98.0 kg
[~2019-04-07 05:45] MED LIST changes: +AMIT150T PO; +DICL100T83 PO; +ZOLP10TA PO
[2019-04-07] MEDS ORDERED: PANT40TA3 PO (11:06)
== END 2019-04-07 11:10 | disposition home or self-care (01) ==
LOC: PREOP 05:45
PROVIDERS: ATTEND Surgery
DX: Z01.818 Encounter for other preprocedural examination (principal)

== ENCOUNTER → 2019-05-19 | Outpatient (CLI) | payer OTHER ==
[~2019-05-19] MED LIST changes: +PANT40TA3 PO; +SUCR1ORA5 PO
--- NOTE | 2019-05-19 09:58 | Diagnostic Imaging Report ---
INDICATION: Scoliosis. Lumbar spine FINDINGS: AP and lateral views of the lumbar spine show sclerotic curvature of the lumbar spine convex to the left. Vertebral alignment is normal. There are some degenerative disc changes at T11-T12, T12-L1, L1-L2 and L2-L3. There are no compression fractures. IMPRESSION: Scoliosis with some degenerative changes in the upper lumbar spine. No acute abnormality seen. Dictated by: Dictated on workstation # [id number]
--- NOTE | 2019-05-19 10:01 | Diagnostic Imaging Report ---
INDICATION: Neck pain Cervical spine FINDINGS: AP and lateral views of the cervical spine shows normal vertebral body height and alignment. There is some disc space narrowing at C5-C6 and C6-C7. There is no fracture or prevertebral soft tissue swelling. The odontoid is intact. Atlantoaxial relationship is normal. IMPRESSION: Mild degenerative disc changes mid cervical spine. No acute abnormality seen. Dictated by: Dictated on workstation # [id number]
--- NOTE | 2019-05-19 10:07 | Diagnostic Imaging Report ---
INDICATION: Back pain. AP and lateral views of the thoracic spine are obtained. There is a scoliotic curvature of the thoracic spine convex to the right. There are 23 degrees of curvature measured centered at T10. Vertebral alignment is normal. Intervertebral disc spaces are well-maintained. IMPRESSION: Sclerotic curvature of the lower thoracic spine convex to the right. Dictated by: Dictated on workstation # [id number]
== END ==
LOC: RAD 09:03
PROVIDERS: ATTEND Pediatrics Neonatal-Perinatal Medicine
DX: Z02.71 Encounter for disability determination (principal); M47.812 Spondylosis without myelopathy or radiculopathy, cervical region; M47.816 Spondylosis without myelopathy or radiculopathy, lumbar region; M47.814 Spondylosis without myelopathy or radiculopathy, thoracic region; M41.9 Scoliosis, unspecified
CPT/HCPCS: 72040; 72072; 72100

== ENCOUNTER → 2020-04-04 | Outpatient (CLI) | payer MEDICAID ==
[~2020-04-04] MED LIST changes: -PANT40TA3 PO; +PANT40TA52 PO
--- NOTE | 2020-04-04 15:31 | Diagnostic Imaging Report ---
INDICATION: Routine screening. COMPARISON: 11/21/2015 and 11/09/2014. TECHNIQUE: 2D and 3D bilateral screening mammography was performed with CAD. FINDINGS: Scattered fibroglandular densities are identified bilaterally. No mass or malignant appearing microcalcifications are seen. The axillae are unremarkable. IMPRESSION: No mammographic features suspicious for malignancy are identified. ACR BI-RADS Category 1: Negative. Result letter will be mailed to the patient. Note: At least 10% of breast cancer is not imaged by mammography. Dictated by: Dictated on workstation # [id number]
== END ==
LOC: RAD 10:45
PROVIDERS: ATTEND Nurse Practitioner
DX: Z12.31 Encounter for screening mammogram for malignant neoplasm of breast (principal)
CPT/HCPCS: 77063; 77067

== ENCOUNTER 2020-05-20 05:42 | Outpatient (RCR) | payer MEDICAID ==
[~2020-05-20] VITALS: Ht 167.7 cm; Wt 90.0 kg
== END 2020-05-20 11:43 | disposition home or self-care (01) ==
LOC: PREOP 05:42
PROVIDERS: ATTEND Surgery
DX: Z01.812 Encounter for preprocedural laboratory examination (principal); K21.9 Gastro-esophageal reflux disease without esophagitis; Z87.19 Personal history of other diseases of the digestive system; Z20.822 Contact with and (suspected) exposure to COVID-19
CPT/HCPCS: 87635

== ENCOUNTER 2020-05-24 06:33 | Day surgery (SDC) | payer BC, MEDICAID ==
[~2020-05-24] VITALS: Ht 167.7 cm; Wt 90.0 kg
[2020-05-24] MEDS ORDERED: PROPOFOL INJECTION 50 ML IV ONE (06:59)
[2020-05-24] MEDS ORDERED: LACTATED RINGERS 1,000 ML IV ONE (07:04)
[2020-05-24] MEDS ORDERED: MIDAZOLAM 2 MG/2 ML (VERSED) VIAL ONE (07:09)
[2020-05-24] MEDS ORDERED: LACTATED RINGERS 1,000 ML IV STA (07:15)
[2020-05-24 07:34] VITALS: BP 112/96
[2020-05-24] MEDS ORDERED: HURRICAINE EXT TUBE (BENZOCAINE) ONE (08:18)
--- NOTE | 2020-05-24 08:27 | Progress Note-Pre Operative ---
Pre-Operative Progress Note H&P Reviewed The H&P was reviewed, patient examined and no changes noted. Date Seen by Provider: May 24, 2020 Time Seen by Provider: 08: Date H&P Reviewed: May 24, 2020 Time H&P Reviewed: 08: Pre-Operative Diagnosis: hx barretts, gerd, dysphagia RENÉE LEON DO May 24, 2020 08:27
[2020-05-24 08:45] VITALS: BP 116/72
[2020-05-24 08:50] VITALS: BP 124/78
--- NOTE | 2020-05-24 08:50 | Progress Note-Post Operative ---
Post-Operative Progess Note Surgeon (s)/Software Engineer Mobile (s) Surgeon RENÉE LEON DO Software Engineer Mobile: na Pre-Operative Diagnosis hx barretts, gerd, dysphagia Post-Operative Diagnosis hiatal hernia, barretts Procedure & Operative Findings Date of Procedure 05/24/20 Procedure Performed/Findings egd c biopsies Anesthesia Type per rotary soil stabilizer Estimated Blood Loss Estimated blood loss (mL): scant Specimens/Packing Specimens Removed antrum, distal esophagus RENÉE LEON DO May 24, 2020 08:50
[2020-05-24] MEDS ORDERED: FAMO-119 PO (08:52)
--- NOTE | 2020-05-24 08:53 | Discharge Inst-Simple/Standard ---
Discharge Inst-Standard Discharge Medications New, Converted or Re-Newed RX: Other (Pepcid over the counter) Patient Instructions/Follow Up Plan of Care/Instructions/FU: 2 weeks Brodie Activity as Tolerated: Yes Discharge Diet: Regular Diet RENÉE LEON DO May 24, 2020 08:53
[2020-05-24 08:55] VITALS: BP 129/84
[2020-05-24] MEDS ORDERED: HURRICAINE EXT TUBE (BENZOCAINE) XX ONE (09:00)
[2020-05-24 09:20] VITALS: BP 120/98
--- NOTE | 2020-05-24 09:21 | Anesthesia-General Post-Op ---
MAC Patient Condition Mental Status/LOC: Same as Preop Cardiovascular: Satisfactory Nausea/Vomiting: Absent Respiratory: Satisfactory Pain: Controlled Complications: Absent Post Op Complications Complications None Follow Up Care/Instructions Patient Instructions None needed. Anesthesiology Discharge Order Discharge Order Patient is doing well, no complaints, stable vital signs, no apparent adverse anesthesia problems. No complications reported per nursing. MISTY DALE CRNA May 24, 2020 09:21
--- NOTE | 2020-05-24 13:33 | OPERATIVE REPORT ---
DATE OF SERVICE: 05/24/2020 PREOPERATIVE DIAGNOSES: History of Espinosa's, gastrointestinal reflux disease, dysphagia. POSTOPERATIVE DIAGNOSES: Hiatal hernia, Espinosa's. PROCEDURE: EGD with biopsies. SURGEON: Rneée Calloway DO ANESTHESIA: Per COMPUTER NETWORK SUPPORT SPECIALIST. ESTIMATED BLOOD LOSS: Scant. COMPLICATIONS: None. INDICATIONS: The patient is a 44-year-old female having reflux and dysphagia symptoms and history of Espinosa's. She understands risks and benefits of procedure and wished to proceed with procedure. Consent was signed in the chart. DESCRIPTION OF PROCEDURE: The patient was taken to the endoscopy suite, placed in left lateral recumbent position. Timeout was performed. Scope was inserted in mouth, down the esophagus, stomach and into the duodenum without difficulty. There were no polyps, masses or ulcerations within the duodenum. Scope was slowly retracted back to stomach where it was further insufflated. Biopsy of the antrum was obtained. No polyps, masses or ulcerations. Scope was retroflexed noting a small hiatal hernia, no other pathology. Scope was returned to its normal position, slowly withdrawn to distal esophagus, had changes of Espinosa's esophagus. Four quadrant biopsies were obtained and scope was then slowly retracted back until completely removed. The patient tolerated procedure well without any complications, taken to recovery room in stable condition. RECOMMENDATIONS: The patient will continue on Protonix. We will add Pepcid and we will follow up on biopsies in a couple of weeks. Further recommendations pending those results. Job ID: [id number] DocumentID: [id number] Dictated Date: 05/24/2020 08:56:41 Chief Ultrasound Technologist Date: 05/24/2020 13:32:32 Dictated By: RENÉE CALLOWAY DO
== END 2020-05-24 09:40 | disposition home or self-care (01) ==
LOC: ENDO 06:33
PROVIDERS: ATTEND Surgery
DX: K44.9 Diaphragmatic hernia without obstruction or gangrene (principal); K21.00 Gastro-esophageal reflux disease with esophagitis, without bleeding; I10 Essential (primary) hypertension; M06.9 Rheumatoid arthritis, unspecified; F41.9 Anxiety disorder, unspecified; D64.9 Anemia, unspecified; F32.9 Major depressive disorder, single episode, unspecified; M47.817 Spondylosis without myelopathy or radiculopathy, lumbosacral region; F17.210 Nicotine dependence, cigarettes, uncomplicated; E66.9 Obesity, unspecified; Z68.32 Body mass index [BMI] 32.0-32.9, adult; Z79.899 Other long term (current) drug therapy; Z88.1 Allergy status to other antibiotic agents; Z88.5 Allergy status to narcotic agent; Z88.8 Allergy status to other drugs, medicaments and biological substances; Z91.038 Other insect allergy status; Z90.711 Acquired absence of uterus with remaining cervical stump; Z87.19 Personal history of other diseases of the digestive system; Z83.3 Family history of diabetes mellitus; Z80.9 Family history of malignant neoplasm, unspecified

== ENCOUNTER → 2020-06-20 | Outpatient (CLI) | payer BC ==
[~2020-06-20] MED LIST changes: +FAMO-119 PO; +RT-ALBUTEROL SULF 2.5 MG/3 ML PRE-MIX VIAL INH ONE
== END ==
LOC: RT 08:00
PROVIDERS: ATTEND Nurse Practitioner Family
DX: R06.02 Shortness of breath (principal)
CPT/HCPCS: 94060; 94726; 94729

== ENCOUNTER 2020-07-11 22:27 | Emergency (ER) | payer BC, MEDICAID ==
[~2020-07-11] VITALS: Ht 167.6 cm; Wt 88.0 kg
[~2020-07-11 22:27] MED LIST changes: -RT-ALBUTEROL SULF 2.5 MG/3 ML PRE-MIX VIAL INH ONE
[2020-07-11 23:24] LABS: BILIRUBIN,URINE NEGATIVE (NEGATIVE); CLARITY,URINE CLEAR; COLOR,URINE YELLOW; GLUCOSE, URINE (UA) NEGATIVE (NEGATIVE); KETONES,URINE NEGATIVE (NEGATIVE); LEUKOCYTE ESTERASE ,URINE NEGATIVE (NEGATIVE); NITRITE,URINE NEGATIVE (NEGATIVE); PH,URINE 6.5 (5-9); PROTEIN,URINE NEGATIVE (NEGATIVE)
[2020-07-11 23:29] LABS: BACTERIA,URINE TRACE /HPF
--- NOTE | 2020-07-12 00:06 | ED Back Pain ---
General Chief Complaint: Back Problems Stated Complaint: BACK PAIN Nursing Triage Note: 3 weeks ago bent over to move piece of furniture, felt pop. over 3 weeks pain has been progressively worse. Aleve, meloxicam not helping. Nursing Sepsis Screen: No Definite Risk Source of Information: Patient Exam Limitations: No Limitations History of Present Illness Date Seen by Provider: Jul 11, 2020 Time Seen by Provider: 23:56 Initial Comments Patient presents ER by private conveyance from home with her daughter and chief complaint of right-sided low back pain for about 3 weeks. She says she was moving a table over and when she pushed it to the wall caused sharp searing pain in her lumbago region with sciatica down her buttock. She has had multiple imaging of her back in the past. She has scoliosis. She had no surgeries on her back. She does not want to see a chiropractor because of her scoliosis. Her primary care provider is Bell at [facility]. She is on meloxicam 15 mg daily and has been using Aleve with no relief. She says she was doing okay until about 2 or 3 days ago it started getting worse. No dysuria fever chills nausea vomiting. No saddle anesthesia, numbness, weakness causing a fall or trauma. Allergies and Home Medications Allergies Coded Allergies: aspirin (Verified Allergy, Severe, ANAPHYLAXIS, 04/07/19) erythromycin base (Verified Allergy, Mild, RASH, 04/07/19) tramadol (Unverified Allergy, Mild, VOMITING, 04/07/19) venom-wasp (Unverified Allergy, Mild, SWELLING, 04/07/19) sumatriptan (Verified Adverse Reaction, Mild, NAUSEA, 04/07/19) Vomits with oral form, no reaction with injectable form sumatriptan succinate (Verified Adverse Reaction, Mild, NAUSEA, 04/07/19) Vomits with oral form, no reaction with injectable form Home Medications Cyclobenzaprine HCl 10 Mg Tablet, 10 MG PO Q8H PRN for SPASMS Prescribed by: DASH AGOSTO on 07/12/20 0010 Famotidine 20 Mg Tablet, 20 MG PO DAILY Prescribed by: RENÉE LEON on 05/24/20 0852 Hydrocodone/Acetaminophen 1 Each Tablet, 1 TAB PO Q6H PRN for PAIN-MODERATE (5- 7) Prescribed by: DASH AGOSTO on 07/12/20 0011 Pantoprazole Sodium 40 Mg Tablet.dr 40 MG PO DAILY, (Reported) Patient Home Medication List Home Medication List Reviewed: Yes Review of Systems Constitutional: No chills, No fever EENTM: No ear discharge, No ear pain Respiratory: No cough, No short of breath Cardiovascular: No chest pain, No edema Gastrointestinal: No abdominal pain, No constipation, No diarrhea, No nausea, No vomiting Genitourinary: No discharge, No dysuria Musculoskeletal: back pain; No joint pain All Other Systems Reviewed Negative Unless Noted: Yes Past Hupgnmc-Uggzne-Jdupou Hx Patient Social History Alcohol Use: Denies Use Smoking Status: Current Everyday Smoker Type Used: Cigarettes 2nd Hand Smoke Exposure: Yes Recent Infectious Disease Expo: No Recent Hopitalizations: No Immunizations Up To Date Tetanus Booster (TDap): Less than 5yrs Date of Pneumonia Vaccine: Apr 07, 2011 Date of Influenza Vaccine: Dec 31, 2019 Seasonal Allergies Seasonal Allergies: Yes Past Medical History Surgeries: Yes (DENTAL SX, ANTERIOR REPAIR) Abdominal, Appendectomy, Bladder Surgery, Gallbladder, 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, Oophorectomy, Tubal Ligation Respiratory: Yes Asthma Currently Using CPAP: No Currently Using BIPAP: No Cardiac: Yes Hypertension Neurological: Yes Headaches /Migraines, Stroke : No 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 Disorders: No 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 Sexually Transmitted Disease: No HIV/AIDS: No Genitourinary: No Gastrointestinal: Yes (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) Gastroesophageal Reflux, Espinosa's Esophagus, Chronic Diarrhea, Ulcer Musculoskeletal: Yes Rheumatoid Arthritis, Scoliosis, Chronic Back Pain Endocrine: No (BORDERLINE- DIET CONTROLLED) HEENT: Yes (READING GLASSES) Loss of Vision: Denies Hearing Impairment: Denies Cancer: Yes Cervical, Ovarian, Uterine Did You Recieve Any Treatments: Yes What Type of Treatment Did You: Chemotherapy, Radiation, Surgical Intervention Psychosocial: Yes Anxiety, Depression Integumentary: No Blood Disorders: Yes (ANEMIA) Adverse Reaction/Blood Tranf: No (HAS HAD BLOOD WITH NO REACTION) Family Medical History Alcoholism 19 FATHER Cardiovascular disease 19 FATHER Dementia 19 MOTHER Drug abuse 19 FATHER FH: cancer 19 FATHER 19 MOTHER (ESPHAGUS) Myocardial infarction 19 FATHER Psychosocial problem 19 FATHER Thyroid disease 19 MOTHER G8 BROTHER G8 SISTER No Family History of: AIDS Alzheimer's disease Arthritis Asthma Cancer of mouth Cataracts Colon cancer Completed stroke Diabetes mellitus Glaucoma Hypertension Kidney disease Parkinson's disease Prostate cancer Respiratory disorder Seizure disorder Severe allergy Tuberculosis Cancer, Stroke, Other Conditions/Hx Physical Exam Vital Signs Vital Signs - First Documented 07/11/20 07/12/20 22:56 00:25 Temp 36.4 Pulse 84 Resp 18 B/P (MAP) 140/104 (116) Pulse Ox 97 O2 Delivery Room Air Capillary Refill : Less Than 3 Seconds Height, Weight, BMI Height: 5'7.00" Weight: 211lbs. 4.0oz. 95.869232lm; 31.00 BMI Method:Stated General Appearance: No Apparent Distress, WD/WN HEENT: PERRL/EOMI, Moist Mucous Membranes Neck: Full Range of Motion, Normal Inspection Cardiovascular: No Murmur, Normal Peripheral Pulses Respiratory: Lungs Clear, Normal Breath Sounds Gastrointestinal: Normal Bowel Sounds, No Organomegaly, Non Tender, Soft Neurologic/Psychiatric: Alert, Oriented x3, No Motor/Sensory Deficits Skin: Normal Color, Warm/Dry Procedures/Interventions Progress Using a 25-gauge 1/2 inch needle we ascertained the level of the L5-S1 facet joint and using a Z track method put the needle in to the skin and withdrew and did not get any blood back. The skin was cleaned with chlorhexidine prep and alcohol. We injected 1 cc of 40 mg/mL Depo-Medrol as well as 1-1/2 cc of lidocaine and Marcaine respectively. No epinephrine. Patient tolerated the p rocedure well. Progress/Results/Core Measures Results/Orders Lab Results Laboratory Tests Test 07/11/20 23:10 Range/Units Urine Color YELLOW Urine Clarity CLEAR Urine pH 6.5 5-9 Urine Specific [place] 1.010 L 1.016-1.022 Urine Protein NEGATIVE NEGATIVE Urine Glucose (UA) NEGATIVE NEGATIVE Urine Ketones NEGATIVE NEGATIVE Urine Nitrite NEGATIVE NEGATIVE Urine Bilirubin NEGATIVE NEGATIVE Urine Urobilinogen 0.2 < = 1.0 MG/DL Urine Leukocyte Esterase NEGATIVE NEGATIVE Urine RBC (Auto) NEGATIVE NEGATIVE Urine RBC NONE /HPF Urine WBC NONE /HPF Urine Squamous Epithelial Cells 2-5 /HPF Urine Crystals NONE /LPF Urine Bacteria TRACE /HPF Urine Casts NONE /LPF Urine Mucus NEGATIVE /LPF Urine Culture Indicated NO My Orders Orders - DASH AGOSTO Ua Culture If Indicated (07/11/20 22:53) Urine Bedside (07/11/20 22:53) Lidocaine 2% Injection 20 Ml (Xylocaine (07/12/20 00:15) Methylprednisolone Acetate Inj (Depo-Med (07/12/20 00:15) Rx-Hydrocodone/Apap 5-325 Mg (Rx-Vicodin (07/12/20 00:15) Lidocaine 1% Inj 20 Ml (Xylocaine 1% Inj (07/12/20 00:15) Medications Given in ED Current Medications Medications Dose Ordered Sig/Mahi Route Start Time Stop Time Status Last Admin Dose Admin Acetaminophen/ Hydrocodone Bitart 1 ea Q6H PRN PO 07/12/20 00:15 07/12/20 00:26 DC 07/12/20 00:09 1 EA Lidocaine HCl 20 ml ONCE ONCE INJ 07/12/20 00:15 07/12/20 00:16 DC 07/12/20 00:10 20 ML Methylprednisolone Acetate 40 mg ONCE ONCE IM 07/12/20 00:15 07/12/20 00:16 DC 07/12/20 00:09 40 MG Vital Signs/I&O 07/11/20 07/12/20 22:56 00:25 Temp 36.4 Pulse 84 Resp 18 14 B/P (MAP) 140/104 (116) 125/94 Pulse Ox 97 O2 Delivery Room Air Room Air Blood Pressure Mean: 116 Progress Progress Note : Time: 00:05 Progress Note Nontraumatic lumbago with radiculopathy and sciatica. Plan to do a point tenderness injection with some steroids refer her to physical therapy give her a little hydrocodone for the severe breakthrough pain and follow-up in 1 to 2 weeks with primary care. Departure Impression Primary Impression: Lumbago with sciatica, right side Qualified Codes: M54.41 - Lumbago with sciatica, right side Disposition: 01 HOME, SELF-CARE Condition: Stable Departure-Patient Inst. Decision time for Depature: 00:07 Referrals: [facility] (PCP/Family) Primary Care Physician Patient Instructions: Sciatica, Back Stretches on Floor, Low Back Pain (DC) Add. Discharge Instructions: Exterior drinking plenty of fluids. Tylenol 1000 mg every 8 hours as necessary for pain. Topical creams such as icy hot Biofreeze etc. Creams with capsaicin oil can also be helpful. Heat applied directly to your back can be helpful. Follow the stretching exercises as outlined in the handout. Tomorrow call make an appointment in 1 to 2 weeks to follow-up with your primary care doctor. Tomorrow call and make an appointment with physical therapy at [phone] for a no upfront cost evaluation. Flexeril/cyclobenzaprine 1 tablet every 8 hours as necessary for muscle spasms in your back. Flexeril may cause drowsiness. Hydrocodone 1 tablet every 6 hours as necessary for severe, intractable back pain. Do not mix it with Flexeril as it may cause unsafe drowsiness. The steroid should kick in in the next 24 hours and lasts about a week and should start bringing down swelling and inflammation in your back. Continue taking your meloxicam. Stop taking Aleve, ibuprofen, naproxen. Return to the ER if you are unable to urinate or you start having numbness between your legs in your saddle region or you cannot walk. All discharge instructions reviewed with patient and/or family. Voiced understanding. Scripts Cyclobenzaprine HCl (Cyclobenzaprine HCl) 10 Mg Tablet 10 MG PO Q8H PRN for SPASMS, #15 TAB 0 Refills Prov: DASH AGOSTO 07/12/20 Hydrocodone/Acetaminophen (Hydrocodone-Acetamin 5-325 mg) 1 Each Tablet 1 TAB PO Q6H PRN for PAIN-MODERATE (5-7), #8 TAB 0 Refills Prov: DASH AGOSTO 07/12/20 Work/School Note: Work Release Form Date Seen in the Emergency Department: Jul 12, 2020 Return to Work: Jul 13, 2020 Restrictions: Need Release from Doctor Other Restrictions Listed Below: Do not lift, push, pull more than 20 pounds until 07/19/2020. DASH AGOSTO Jul 12, 2020 00:06
[2020-07-12] MEDS ORDERED: ACHD5005 PO (00:10)
[2020-07-12] MEDS ORDERED: CYCL10TA9 PO (00:10)
[2020-07-12] MEDS ORDERED: LIDOCAINE 1% INJ 20 ML 20 ML VIAL INJ ONE (00:15)
[2020-07-12] MEDS ORDERED: methylPREDNISolone 40 MG/ML (DEPO MEDROL) VIAL IM ONE (00:15)
[2020-07-12] MEDS ORDERED: LIDOCAINE 2% 20 ML (XYLOCAINE) VIAL INJ ONE (00:15)
[2020-07-12] MEDS ORDERED: RX-HYDROCODONE/APAP 5/325 MG #4 TAB PK PO PRN (00:15)
[2020-07-12 00:25] VITALS: BP 125/94
== END 2020-07-12 00:26 | disposition home or self-care (01) ==
LOC: EDUNIT# 22:27 → ER 22:30
DX: M54.41 Lumbago with sciatica, right side (principal); K21.9 Gastro-esophageal reflux disease without esophagitis; G89.29 Other chronic pain; M54.9 Dorsalgia, unspecified; I10 Essential (primary) hypertension; J45.909 Unspecified asthma, uncomplicated; F17.210 Nicotine dependence, cigarettes, uncomplicated; Z88.5 Allergy status to narcotic agent; Z88.1 Allergy status to other antibiotic agents; Z88.8 Allergy status to other drugs, medicaments and biological substances; Z85.41 Personal history of malignant neoplasm of cervix uteri; Z85.43 Personal history of malignant neoplasm of ovary; Z85.42 Personal history of malignant neoplasm of other parts of uterus; Z80.0 Family history of malignant neoplasm of digestive organs; Z82.49 Family history of ischemic heart disease and other diseases of the circulatory system; Z79.891 Long term (current) use of opiate analgesic
CPT/HCPCS: 81000; 96372; 99284

== ENCOUNTER 2020-10-17 14:39 | Emergency (ER) | payer MEDICAID ==
[~2020-10-17] VITALS: Ht 167 cm; Wt 84.0 kg
[~2020-10-17 14:39] MED LIST changes: +ACHD5005 PO; -DICL100T83 PO; +NF-DICLOTA PO
--- NOTE | 2020-10-17 15:13 | ED Neurological Problem ---
General Chief Complaint: Neuro-Stroke Like Symptoms Stated Complaint: STROKE LIKE SYMPTOMS Nursing Triage Note: ARRIVED VIA AMB TO ROOM 07 VIA WC ET TEARFUL. STATES AT APPX NOON SHE STARTED HAVING NUMBESS AND TINGLING ON HER LEFT SIDE AND THOUGT SHE COULD SEE HER OWN CHEEK AND IT SCARED HER. Source: patient Exam Limitations: no limitations History of Present Illness Date Seen by Provider: Oct 17, 2020 Time Seen by Provider: 14:50 Initial Comments Patient is a 44-year-old female who presents to the emergency department today with a chief complaint of severe right occipital headache onset 30 minutes ago and numbness and paresthesias that started out at about noon. Patient states while along with a headache she noticed that the peripheral side of her left eye was "gone". She feels like the left side of her face is drooping a little bit. She states that she has not had any speech or swallowing difficulty. She reports that she had a "stroke" about 12 years ago related to childbirth. She is not sure what kind of stroke she had. She is not chronically anticoagulated, does not take aspirin daily. She states it feels like pins poking her like she is getting a tattoo all down the left side of her body including her face left upper extremity left lower extremity. She feels like her left leg is not really working like it should. She is post Covid vaccination in July and August. She did have a little numbness and tingling after her vaccination as did her sister. No recent fevers, chills, cough or congestion. No nausea, vomiting diarrhea or urinary complaints. All other review of systems reviewed and negative except as stated above. Timing/Duration: 1/2 hour Severity: moderate Associated Symptoms: paresthesia (Left face, left upper extremity, left lower extremity), trouble walking, vision changes Allergies and Home Medications Allergies Coded Allergies: aspirin (Verified Allergy, Severe, ANAPHYLAXIS, 04/07/19) erythromycin base (Verified Allergy, Mild, RASH, 04/07/19) tramadol (Unverified Allergy, Mild, VOMITING, 04/07/19) venom-wasp (Unverified Allergy, Mild, SWELLING, 04/07/19) sumatriptan (Verified Adverse Reaction, Mild, NAUSEA, 04/07/19) Vomits with oral form, no reaction with injectable form sumatriptan succinate (Verified Adverse Reaction, Mild, NAUSEA, 04/07/19) Vomits with oral form, no reaction with injectable form Patient Home Medication List Home Medication List Reviewed: Yes Review of Systems Review of Systems Constitutional: see HPI Eyes: Decreased Acuity (Left lateral gaze) Ears, Nose, Mouth, Throat: no symptoms reported Respiratory: no symptoms reported Cardiovascular: no symptoms reported Gastrointestinal: no symptoms reported Genitourinary: no symptoms reported : No Musculoskeletal: no symptoms reported Skin: no symptoms reported Psychiatric/Neurological: Anxiety, Headache (Right occipital), Other (Visual field loss) All Other Systems Reviewed Negative Unless Noted: Yes Past Tjderjv-Tfwpij-Viwhbe Hx Patient Social History Smoking Status: Current Everyday Smoker Substance use?: No Alcohol Use?: No Immunizations Up To Date Tetanus Booster (TDap): Less than 5yrs Second COVID19 Vaccination Tobi: 09/19 COVID19 Vaccine Voice 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: [email or web address] Seasonal Allergies Seasonal Allergies: Yes Past Medical History Surgeries: Yes (DENTAL SX, ANTERIOR REPAIR) Abdominal, Appendectomy, Bladder Surgery, Gallbladder, 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, Oophorectomy, Tubal Ligation Respiratory: Yes Asthma Currently Using CPAP: No Currently Using BIPAP: No Cardiac: Yes Hypertension Neurological: Yes Headaches /Migraines, Stroke 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 Disorders: 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 Sexually Transmitted Disease: No HIV/AIDS: No Genitourinary: No Gastrointestinal: Yes (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) Gastroesophageal Reflux, Espinosa's Esophagus, Chronic Diarrhea, Ulcer Musculoskeletal: Yes Rheumatoid Arthritis, Scoliosis, Chronic Back Pain Endocrine: No (BORDERLINE- DIET CONTROLLED) HEENT: Yes (READING GLASSES) Loss of Vision: Denies Hearing Impairment: Denies Cancer: Yes Cervical, Ovarian, Uterine Did You Recieve Any Treatments: Yes What Type of Treatment Did You: Chemotherapy, Radiation, Surgical Intervention Psychosocial: Yes Anxiety, Depression Integumentary: No Blood Disorders: Yes (ANEMIA) Adverse Reaction/Blood Tranf: No (HAS HAD BLOOD WITH NO REACTION) Family Medical History Alcoholism 19 FATHER Cardiovascular disease 19 FATHER Dementia 19 MOTHER Drug abuse 19 FATHER FH: cancer 19 FATHER 19 MOTHER (ESPHAGUS) Myocardial infarction 19 FATHER Psychosocial problem 19 FATHER Thyroid disease 19 MOTHER G8 BROTHER G8 SISTER No Family History of: AIDS Alzheimer's disease Arthritis Asthma Cancer of mouth Cataracts Colon cancer Completed stroke Diabetes mellitus Glaucoma Hypertension Kidney disease Parkinson's disease Prostate cancer Respiratory disorder Seizure disorder Severe allergy Tuberculosis Cancer, Stroke, Other Conditions/Hx Physical Exam Vital Signs Vital Signs - First Documented 10/17/20 14:39 Temp 36.3 Pulse 88 Resp 16 B/P (MAP) 137/100 (112) Pulse Ox 97 O2 Delivery Room Air Capillary Refill : Less Than 3 Seconds Height, Weight, BMI Height: 5'7.00" Weight: 211lbs. 4.0oz. [id number]; 30.00 BMI Method:Stated General Appearance: WD/WN, mild distress (Tearful) HEENT: PERRL/EOMI, normal ENT inspection Neck: full range of motion Respiratory: lungs clear, normal breath sounds, no respiratory distress, no accessory muscle use Cardiovascular: regular rate, rhythm Extremities: normal range of motion, non-tender, normal inspection, no pedal edema, no calf tenderness Neurologic/Psychiatric: auto service advisor II-XII nml as tested, alert, normal mood/affect, oriented x 3, abnormal cerebellar tests (A little abnormality with left lower extremity on [id number], [id number] is normal bilaterally); No abnormal auto service advisor II-XII, No aphasia, No EOM palsy, No facial droop, No motor weakness; depressed affect; No disoriented x 3; other (Paresthesia left face, left upper extremity left lower extremity) Crainal Nerves: normal hearing, normal speech, PERRL; No abnormal eye position, No abnormal pupil position, No abnormal speech, No facial asymmetry, No facial droop; facial paresthesias; No facial weakness, No tongue deviation to R, No tongue deviation to L Coordination/Gait: normal finger to nose, negative Romberg's sign Motor/Sensory: no motor deficit, no pronator drift Skin: normal color, warm/dry Stroke Onset of Symptoms Date of Onset of Symptoms: Oct 17, 2020 Time of Symptom Onset: 14:30 Onset of Symptoms: Yes Symptoms onset unknown: No NIH Stroke Scale Assessment Level of Consciousness: 0=Alert (0), Level of Consciousness-Questions: 0=Answers both month/age (0), LOC Commands: 0=Performs both tasks (0), Visual Mark: 1=Partial hemianopia (1), Facial Movement (Facial Paresis): 0=Normal symmetrical mnt (0), Motor Function-Arms Right: 0=No drift (0), Motor Function-Arms Left: 0=No drift (0), Motor Function-Legs Right: 0=No drift (0), Motor Function-Legs Left: 0=No drift (0), Limb Ataxia: 1=Present in one limb (1), Sensory: 0=Normal:no loss (0), Best Language: 0=No aphasia (0), Dysarthria: 0=Normal (0), Extinction & Inattention: 0=No abnormality (0), Total: 2 Stroke Thrombolytic Exclusion Age 18 or Over: Yes History of CVA: Yes Uncontrolled Coagulation Defec: No Severe Hypertension: No GI or Bleed: No Oral Anticoagulants: No Surgery or Trauma: No Puncture of Non-Compressible V: No Recent CPR: No Diabetic Hemorrhagic Retinopat: No Organ Biopsy: No Recent Obstetric Delivery: No Glucose: No Significant Hepatic Dysfunctio: No NIH Stoke Scale >22: No Bacterial Endocarditis: No Pericarditis: No Improving Symptoms: No Platelets: No TPA Contraindication: No Progress/Results/Core Measures Results/Orders Lab Results Laboratory Tests Test 10/17/20 14:45 10/17/20 15:15 Range/Units White Blood Count 11.3 H 4.3-11.0 10^3/uL Red Blood Count 5.23 H 3.80-5.11 10^6/uL Hemoglobin 17.2 H 11.5-16.0 g/dL Hematocrit 49 35-52 % Mean Corpuscular Volume 94 80-99 fL Mean Corpuscular Hemoglobin 33 25-34 pg Mean Corpuscular Hemoglobin Concent 35 32-36 g/dL Red Cell Distribution Width 12.4 10.0-14.5 % Platelet Count 153 130-400 10^3/uL Mean Platelet Volume 11.3 9.0-12.2 fL Immature Granulocyte % (Auto) 0 % Neutrophils (%) (Auto) 59 42-75 % Lymphocytes (%) (Auto) 31 12-44 % Monocytes (%) (Auto) 8 0-12 % Eosinophils (%) (Auto) 2 0-10 % Basophils (%) (Auto) 1 0-10 % Neutrophils # (Auto) 6.6 1.8-7.8 10^3/uL Lymphocytes # (Auto) 3.5 1.0-4.0 10^3/uL Monocytes # (Auto) 0.9 0.0-1.0 10^3/uL Eosinophils # (Auto) 0.2 0.0-0.3 10^3/uL Basophils # (Auto) 0.1 0.0-0.1 10^3/uL Immature Granulocyte # (Auto) 0.0 0.0-0.1 10^3/uL Prothrombin Time 12.5 12.2-14.7 SEC INR Comment 0.9 0.8-1.4 Activated Partial Thromboplast Time 33 24-35 SEC D-Dimer <= 0.27 0.00-0.49 UG/ML Sodium Level 141 135-145 MMOL/L Potassium Level 3.9 3.6-5.0 MMOL/L Chloride Level 105 98-107 MMOL/L Carbon Dioxide Level 22 21-32 MMOL/L Anion Gap 14 5-14 MMOL/L Blood Urea Nitrogen 9 7-18 MG/DL Creatinine 0.77 0.60-1.30 MG/DL Estimat Glomerular Filtration Rate > 60 BUN/Creatinine Ratio 12 Glucose Level 116 H 70-105 MG/DL Calcium Level 10.1 8.5-10.1 MG/DL Corrected Calcium 9.7 8.5-10.1 MG/DL Total Bilirubin 0.4 0.1-1.0 MG/DL Aspartate Amino Transf (AST/SGOT) 18 5-34 U/L Alanine Aminotransferase (ALT/SGPT) 18 0-55 U/L Alkaline Phosphatase 162 H 40-136 U/L Troponin I < 0.028 <0.028 NG/ML Total Protein 7.6 6.4-8.2 GM/DL Albumin 4.5 3.2-4.5 GM/DL Urine Color YELLOW Urine Clarity CLEAR Urine pH 6.0 5-9 Urine Specific [place] 1.015 L 1.016-1.022 Urine Protein NEGATIVE NEGATIVE Urine Glucose (UA) NEGATIVE NEGATIVE Urine Ketones NEGATIVE NEGATIVE Urine Nitrite NEGATIVE NEGATIVE Urine Bilirubin NEGATIVE NEGATIVE Urine Urobilinogen 0.2 < = 1.0 MG/DL Urine Leukocyte Esterase NEGATIVE NEGATIVE Urine RBC (Auto) NEGATIVE NEGATIVE Urine RBC NONE /HPF Urine WBC 0-2 /HPF Urine Crystals NONE /LPF Urine Bacteria TRACE /HPF Urine Casts PRESENT /LPF Urine Hyaline Casts 0-2 H /LPF Urine Mucus NEGATIVE /LPF Urine Culture Indicated NO My Orders Orders - GONZALO LARKIN MD Cbc With Automated Diff (10/17/20 15:06) Protime With Inr (7/19/21 15:06) Partial Thromboplastin Time (10/17/20 15:06) Comprehensive Metabolic Panel (10/17/20 15:06) Fibrin Degradation Products (10/17/20 15:06) Troponin I (10/17/20 15:06) Ua Culture If Indicated (10/17/20 15:06) Chest 1 View, Ap/Pa Only (10/17/20 15:06) Ekg Tracing (10/17/20 15:06) Nothing By Mouth (10/17/20 Dinner) Accucheck Stat ONCE (10/17/20 15:06) Ed Iv/Invasive Line Start (10/17/20 15:06) Ed Iv/Invasive Line Start (10/17/20 15:06) Vital Signs Stroke Patient Q15M (10/17/20 15:06) Ct Head Wo-R/O Stroke (10/17/20 15:06) O2 (10/17/20 15:06) Intake & Output 06,14,22 (10/17/20 15:06) Monitor-Rhythm Ecg Trace Only (10/17/20 15:06) Dysphagia Screening Tool (10/17/20 15:06) Post Thrombolytic Adminstratio (10/17/20 15:06) Lipid Panel (10/18/20 06:00) Ct Angio Head/Neck (10/17/20 15:36) Iohexol Injection (Omnipaque 350 Mg/Ml 1 (10/17/20 15:45) Received Contrast (Hold Metformin- Contr (10/17/20 15:45) Ns (Ivpb) (Sodium Chloride 0.9% Ivpb Bag (10/17/20 15:45) Ketorolac Injection (Toradol Injection) (10/17/20 17:00) Metoclopramide Injection (Reglan Injecti (10/17/20 17:00) Diphenhydramine Tablet (Benadryl Tablet) (10/17/20 17:00) Magnesium 1 Gm/100 Ml Ivpb (Magnesium Lopez (10/17/20 17:00) Medications Given in ED Current Medications Medications Dose Ordered Sig/Mahi Route Start Time Stop Time Status Last Admin Dose Admin Diphenhydramine HCl 25 mg ONCE ONCE PO 10/17/20 17:00 10/17/20 17:01 DC 10/17/20 17:05 25 MG Iohexol 75 ml ONCE ONCE IV 10/17/20 15:45 10/17/20 15:46 DC 10/17/20 15:54 75 ML Ketorolac Tromethamine 15 mg ONCE ONCE IVP 10/17/20 17:00 10/17/20 17:01 DC 10/17/20 17:04 15 MG Magnesium Sulfate/ Dextrose 100 ml @ 100 mls/hr ONCE ONCE IV 10/17/20 17:00 10/17/20 17:59 10/17/20 17:05 100 MLS/HR Metoclopramide HCl 10 mg ONCE ONCE IVP 10/17/20 17:00 10/17/20 17:01 DC 10/17/20 17:04 10 MG Sodium Chloride 100 ml ONCE ONCE IV 10/17/20 15:45 10/17/20 15:46 DC 10/17/20 15:54 80 ML Vital Signs/I&O 10/17/20 14:39 Temp 36.3 Pulse 88 Resp 16 B/P (MAP) 137/100 (112) Pulse Ox 97 O2 Delivery Room Air Blood Pressure Mean: 112 Progress Progress Note : Time: 16:55 Progress Note Discussed with [facility], stroke neurology, Dr. Mccarty. He believes with the description of the onset of symptoms and subsequent work-up that the patient is having a complex migraine. He recommended headache cocktail to include Toradol IV Reglan IV Benadryl p.o. and a gram of mag IV. He states once the headache is under control and abated all of her symptoms should improve. He states if she does not have complete improvement of her symptoms including the visual field defects that likely she might need to stay and have an MRI done. His suspicion was however that once the headache was under control the symptoms would all res olve. Patient remains a little bit hypertensive with a diastolic of 100. Symptoms are still there but may be slightly improved. Will give the above headache cocktail and reevaluate. 174 Patient feels much better. She states the burning and her headache are completely resolved. Her visual mark have completely improved. She is ready for discharge. She still has a little bit of mag left infusing. Will finish that and let her go home. Patient is encouraged to follow-up with her primary care physician. She is given good return precautions. She verbalized understanding, all questions are sought and answered. Patient is stable for discharge. Initial ECG Impression Date: Oct 17, 2020 Initial ECG Impression Time: 14:49 Initial ECG Rate: 89 Initial ECG Rhythm: Normal Sinus Initial ECG Intervals: Normal Initial ECG Impression: Nonspecific Changes Diagnostic Imaging Diagonstic Imaging: CT Plain Films/CT/US/NM/MRI: head Comments NAME: ISHAN ROJAS [facility] REC#: [id number] PT STATUS: REG ER : 1975 PHYSICIAN: GONZALO LARKIN MD ADMIT DATE: 10/17/20/ER Draft Date of Exam:10/17/20 CT HEAD WO-R/O STROKE INDICATION: Stroke, left-sided weakness. TECHNIQUE: Multiple contiguous axial images were obtained through the brain without the use of intravenous contrast. Auto Exposure Controls were utilized during the CT exam to meet ALARA standards for radiation dose reduction. COMPARISON: Comparison made to 05/17/2017. FINDINGS: There were no extra-axial fluid collections. No intracranial hemorrhage. No intracranial mass or mass effect. No midline shift. The ventricles are normal in size and position. There are no discrete focal parenchymal abnormalities in the brain. There is no territorial ischemia detected at this time. Calvarial windows were unremarkable. IMPRESSION: Negative noncontrast brain CT. Dictated on workstation # [id number] Dict: 10/17/20 1524 Trans: 10/17/20 1529 [id number] Interpreted by: DERRELL STUART MD Electronically signed by: Departure Impression Primary Impression: Migraine variant Disposition: 01 HOME, SELF-CARE Condition: Stable Departure-Patient Inst. Decision time for Depature: 17:49 Referrals: [facility] (PCP/Family) Primary Care Physician Patient Instructions: Migraines (DC) Add. Discharge Instructions: Drink plenty of fluids to stay well-hydrated. Take Tylenol and ibuprofen as needed for headache. If symptoms recur or worsen or you develop new concerning symptoms please come back to the emergency room for reevaluation. Please follow-up with your primary care provider. Work/School Note: Work Release Form Date Seen in the Emergency Department: Oct 17, 2020 Return to Work: Oct 18, 2020 GONZALO LARKIN MD Oct 17, 2020 15:13
[2020-10-17 15:14] LABS: BASOPHILS # (AUTO) 0.1 10^3/uL (0.0-0.1); BASOPHILS % (AUTO) 1 % (0-10); EOSINOPHILS # (AUTO) 0.2 10^3/uL (0.0-0.3); EOSINOPHILS % (AUTO) 2 % (0-10); HEMATOCRIT 49 % (35-52); HEMOGLOBIN 17.2 g/dL (11.5-16.0); LYMPHOCYTES # (AUTO) 3.5 10^3/uL (1.0-4.0); LYMPHOCYTES % (AUTO) 31 % (12-44); MEAN CORPUSCULAR HEMOGLOBIN 33 pg (25-34); MEAN CORPUSCULAR HGB CONC 35 g/dL (32-36); MEAN CORPUSCULAR VOLUME 94 fL (80-99); MEAN PLATELET VOLUME 11.3 fL (9.0-12.2); MONOCYTES # (AUTO) 0.9 10^3/uL (0.0-1.0); MONOCYTES % (AUTO) 8 % (0-12); NEUTROPHILS # (AUTO) 6.6 10^3/uL (1.8-7.8); NEUTROPHILS % (AUTO) 59 % (42-75); PLATELET COUNT 153 10^3/uL (130-400); WHITE BLOOD COUNT 11.3 10^3/uL (4.3-11.0)
[2020-10-17 15:20] LABS: BILIRUBIN,URINE NEGATIVE (NEGATIVE); CLARITY,URINE CLEAR; COLOR,URINE YELLOW; GLUCOSE, URINE (UA) NEGATIVE (NEGATIVE); KETONES,URINE NEGATIVE (NEGATIVE); LEUKOCYTE ESTERASE ,URINE NEGATIVE (NEGATIVE); NITRITE,URINE NEGATIVE (NEGATIVE); PROTEIN,URINE NEGATIVE (NEGATIVE)
[2020-10-17 15:23] LABS: ALBUMIN 4.5 GM/DL (3.2-4.5); CHLORIDE 105 MMOL/L (98-107); POTASSIUM 3.9 MMOL/L (3.6-5.0); SODIUM 141 MMOL/L (135-145)
[2020-10-17 15:24] LABS: CALCIUM 10.1 MG/DL (8.5-10.1)
[2020-10-17 15:25] LABS: GLUCOSE 116 MG/DL (70-105); TOTAL PROTEIN 7.6 GM/DL (6.4-8.2)
[2020-10-17 15:26] LABS: CARBON DIOXIDE 22 MMOL/L (21-32)
[2020-10-17 15:27] LABS: BILIRUBIN,TOTAL 0.4 MG/DL (0.1-1.0); FIBRIN DEGRADATION PRODUCTS <= 0.27 UG/ML (0.00-0.49); INR 0.9 (0.8-1.4); PARTIAL THROMBOPLASTIN TIME 33 SEC (24-35); PROTHROMBIN TIME PATIENT 12.5 SEC (12.2-14.7)
[2020-10-17 15:28] LABS: ALKALINE PHOSPHATASE 162 U/L (40-136)
[2020-10-17 15:29] LABS: CREATININE SERUM 0.77 MG/DL (0.60-1.30); GFR ESTIMATED > 60
[2020-10-17 15:29] LABS: BACTERIA,URINE TRACE /HPF; WBC,URINE 0-2 /HPF
--- NOTE | 2020-10-17 15:29 | Diagnostic Imaging Report ---
INDICATION: Stroke, left-sided weakness. TECHNIQUE: Multiple contiguous axial images were obtained through the brain without the use of intravenous contrast. Auto Exposure Controls were utilized during the CT exam to meet ALARA standards for radiation dose reduction. COMPARISON: Comparison made to 05/17/2017. FINDINGS: There were no extra-axial fluid collections. No intracranial hemorrhage. No intracranial mass or mass effect. No midline shift. The ventricles are normal in size and position. There are no discrete focal parenchymal abnormalities in the brain. There is no territorial ischemia detected at this time. Calvarial windows were unremarkable. IMPRESSION: Negative noncontrast brain CT. Dictated by: Dictated on workstation # [id number]
[2020-10-17 15:30] LABS: HYALINE CASTS, URINE 0-2 /LPF
[2020-10-17 15:30] LABS: BUN/CREATININE RATIO 12
[2020-10-17 15:32] LABS: ALANINE AMINOTRANSFERASE 18 U/L (0-55)
[2020-10-17] MEDS ORDERED: IOHEXOL 350 MG/ML 100 ML (OMNIPAQUE 350) VIAL IV ONE (15:45)
[2020-10-17] MEDS ORDERED: HOLD METFORMIN - RECEIVED CONTRAST 20 ML VIAL IV SCH (15:45)
[2020-10-17] MEDS ORDERED: NS 100 ML (IVPB) BAG IV ONE (15:45)
--- NOTE | 2020-10-17 16:21 | Diagnostic Imaging Report ---
INDICATION: Left-sided visual loss and ataxia and headache. TECHNIQUE: Contiguous noncontrast images were obtained from the skull base through the vertex. After intravenous contrast administration, helical CT angiography of the neck was performed. Source data was reformatted into 3D MIP projections. Delayed post contrast acquisition was also obtained. Auto Exposure Controls were utilized during the CT exam to meet ALARA standards for radiation dose reduction. COMPARISON: There is no prior CTA for comparison. CTA NECK FINDINGS: The aortic arch and great vessel origins are patent and without stenosis. The common carotid arteries, carotid bifurcations, internal carotid arteries, and external carotids are patent and without stenosis. There is minimal plaquing at the left internal carotid origin, without stenosis. The distal internal carotid arteries appear unremarkable in the neck. The vertebral arteries are patent on both sides with the left being dominant and the right being relatively small. There is no vertebral stenosis or dissection in the neck region. The right vertebral artery appears to terminate in the right posterior inferior cerebellar artery, as a normal variant. CTA HEAD FINDINGS: The distal internal carotid arteries, anterior cerebral arteries, and middle cerebral arteries and their branches are patent. There is no major vessel occlusion or aneurysmal disease. The distal vertebral arteries are patent, with the right vertebral artery terminating in the posterior inferior cerebellar artery on the right side. The left vertebral artery is dominant and is widely patent throughout, although somewhat tortuous. The basilar artery is patent and without stenosis. The posterior cerebral arteries are patent on both sides. There is patency of the dural venous sinuses. IMPRESSION: 1. CTA neck was unremarkable. 2. CTA head showed no major vessel stenosis or occlusion or aneurysmal disease. Dictated by: Dictated on workstation # [id number] Odd
--- NOTE | 2020-10-17 16:49 | Diagnostic Imaging Report ---
Indication: Paresthesias, leg weakness Portable chest 4:37 PM Heart size and pulmonary vascularity are normal. Lungs are clear. There are no effusions or pneumothoraces. IMPRESSION: No acute abnormalities in the chest Dictated by: Dictated on workstation # [id number]
[2020-10-17] MEDS ORDERED: diphenhydrAMINE 25 MG TAB (BENADRYL) PO ONE (17:00)
[2020-10-17] MEDS ORDERED: METOCLOPRAMIDE INJ 10 MG/2 ML (REGLAN) IVP ONE (17:00)
[2020-10-17] MEDS ORDERED: KETOROLAC 30 MG/ML VIAL IVP ONE (17:00)
[2020-10-17] MEDS ORDERED: MAGNESIUM 1 GM/100 ML IVPB 100 ML IV ONE (17:00)
[2020-10-17 18:07] VITALS: BP 123/102
== END 2020-10-17 18:07 | disposition home or self-care (01) ==
LOC: EDUNIT# 14:39 → ER 14:41
DX: G43.909 Migraine, unspecified, not intractable, without status migrainosus (principal); J45.909 Unspecified asthma, uncomplicated; I10 Essential (primary) hypertension; F17.200 Nicotine dependence, unspecified, uncomplicated; Z86.73 Personal history of transient ischemic attack (TIA), and cerebral infarction without residual deficits
CPT/HCPCS: 36415; 70450; 70496; 70498; 71045; 80053; 81000; 84484; 85025; 85379; 85610; 85730; 93005

== ENCOUNTER 2021-02-21 11:15 | Inpatient (IN) | payer MEDICAID ==
[~2021-02-21] VITALS: Ht 167.7 cm; Wt 87.1 kg
[~2021-02-21 11:15] MED LIST changes: +CYCL10TA25 PO
--- NOTE | 2021-02-21 11:25 | ED General ---
General Stated Complaint: CHEST PAIN Source of Information: Patient Exam Limitations: No Limitations (JADA JOHANSEN APRN) History of Present Illness Date Seen by Provider: Feb 21, 2021 Time Seen by Provider: 11:23 Initial Comments 45-year-old female with history of migraine disorder PTSD, anxiety, depression, Espinosa's esophagus, hypertension, hyperlipidemia, asthma, rheumatoid arthritis, scoliosis, chronic back pain presents to ER by [facility] from home with reports of chest pain. This began 20 minutes prior to EMS arrival while she was arguing with her ex-. EMS arrived and gave nitroglycerin x1 which completely resolved her pain and she continues to be pain-free now. She states that she has had this before and it was related to her PTSD. No history of coronary disease. She reports an allergy to aspirin but is not sure what it does to her. Her blood pressure on arrival was about 170s over 100 EMS reports. Timing/Duration: 1/2 Hour Severity: Mild Associated Systoms: Chest Pain (JADA JOHANSEN APRN) Allergies and Home Medications Allergies Coded Allergies: aspirin (Verified Allergy, Severe, ANAPHYLAXIS, 04/07/19) erythromycin base (Verified Allergy, Mild, RASH, 04/07/19) tramadol (Unverified Allergy, Mild, VOMITING, 04/07/19) venom-wasp (Unverified Allergy, Mild, SWELLING, 04/07/19) sumatriptan (Verified Adverse Reaction, Mild, NAUSEA, 04/07/19) Vomits with oral form, no reaction with injectable form sumatriptan succinate (Verified Adverse Reaction, Mild, NAUSEA, 04/07/19) Vomits with oral form, no reaction with injectable form Patient Home Medication List Home Medication List Reviewed: Yes (JADA JOHANSEN APRN) Albuterol Sulfate (Proair Hfa) 1 Puff Puff, 2 PUFF IH Q4H, (Reported) Entered as Reported by: SALONI DOWLING on 02/21/211632 Last Action: Reviewed Famotidine (Pepcid AC) 10 Mg Tablet, 10 MG PO BID WITH MEALS, (Reported) Entered as Reported by: SALONI DOWLING on 02/21/211632 Last Action: Reviewed Pantoprazole Sodium (Protonix) 40 Mg Tablet.dr, 40 MG PO DAILY, (Reported) Entered as Reported by: SALONI DOWLING on 02/21/211632 Last Action: Reviewed Polyethylene Glycol 3350 (Miralax) 17 Gm Powd.pack, 17 GM PO BID, (Reported) Entered as Reported by: SALONI DOWLING on 02/21/211632 Last Action: Reviewed Trazodone HCl (Trazodone HCl) 100 Mg Tablet, 100 MG PO HS, (Reported) Entered as Reported by: SALONI DOWLING on 02/21/211632 Last Action: Reviewed Review of Systems Review of Systems Constitutional: see HPI EENTM: see HPI Respiratory: no symptoms reported Cardiovascular: see HPI, chest pain Genitourinary: no symptoms reported Musculoskeletal: no symptoms reported Skin: no symptoms reported Psychiatric/Neurological: No Symptoms Reported Hematologic/Lymphatic: No Symptoms Reported (JDAA JOHANSEN APRN) Past Vhrvhqz-Tdvfyg-Ggbdfl Hx Immunizations Up To Date Tetanus Booster (TDap): Less than 5yrs (JADA JOHANSEN APRN) Seasonal Allergies Seasonal Allergies: Yes (JADA JOHANSEN APRN) Past Medical History Surgeries: Yes (DENTAL SX, ANTERIOR REPAIR) Abdominal, Appendectomy, Bladder Surgery, Gallbladder, 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, Oophorectomy, Tubal Ligation Respiratory: Yes Asthma Currently Using CPAP: No Currently Using BIPAP: No Cardiac: Yes Hypertension Neurological: Yes Headaches /Migraines, Stroke 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 Disorders: No 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 Sexually Transmitted Disease: No HIV/AIDS: No Genitourinary: No Gastrointestinal: Yes (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) Gastroesophageal Reflux, Espinosa's Esophagus, Chronic Diarrhea, Ulcer Musculoskeletal: Yes Rheumatoid Arthritis, Scoliosis, Chronic Back Pain Endocrine: No (BORDERLINE- DIET CONTROLLED) HEENT: Yes (READING GLASSES) Loss of Vision: Denies Hearing Impairment: Denies Cancer: Yes Cervical, Ovarian, Uterine Did You Recieve Any Treatments: Yes What Type of Treatment Did You: Chemotherapy, Radiation, Surgical Intervention Psychosocial: Yes Anxiety, Depression Integumentary: No Blood Disorders: Yes (ANEMIA) Adverse Reaction/Blood Tranf: No (HAS HAD BLOOD WITH NO REACTION) (JADA JOHANSEN APRN) Family Medical History Alcoholism 19 FATHER Cardiovascular disease 19 FATHER Dementia 19 MOTHER Drug abuse 19 FATHER FH: cancer 19 FATHER 19 MOTHER (ESPHAGUS) Myocardial infarction 19 FATHER Psychosocial problem 19 FATHER Thyroid disease 19 MOTHER G8 BROTHER G8 SISTER No Family History of: AIDS Alzheimer's disease Arthritis Asthma Cancer of mouth Cataracts Colon cancer Completed stroke Diabetes mellitus Glaucoma Hypertension Kidney disease Parkinson's disease Prostate cancer Respiratory disorder Seizure disorder Severe allergy Tuberculosis Cancer, Stroke, Other Conditions/Hx (JADA JOHANSEN APRN) Physical Exam Vital Signs Vital Signs - First Documented 02/21/21 11:15 Temp 36.9 Pulse 90 Resp 18 B/P (MAP) 133/93 (106) O2 Delivery Room Air (ANNEL MARTINEZ MD) Vital Signs Capillary Refill : (JADA JOHANSEN APRN) Height, Weight, BMI Height: 5'7.00" Weight: 211lbs. 4.0oz. 95.434248rb; 30.00 BMI Method:Stated General Appearance: No Apparent Distress, WD/WN Eyes: Bilateral Eye Normal Inspection, Bilateral Eye PERRL, Bilateral Eye EOMI Neck: Full Range of Motion, Normal Inspection Respiratory: No Accessory Muscle Use, No Respiratory Distress Cardiovascular: Regular Rate, Rhythm, Normal Peripheral Pulses Gastrointestinal: Non Tender, Soft Extremity: Normal Capillary Refill, Normal Inspection Neurologic/Psychiatric: Alert, Oriented x3 Skin: Normal Color, Warm/Dry (JADA JOHANSEN APRN) Progress/Results/Core Measures Suspected Sepsis SIRS Temperature: Pulse: Respiratory Rate: Laboratory Tests 02/21/21 11:30: White Blood Count 10.1 Blood Pressure / Mean: Laboratory Tests 02/21/21 11:30: Creatinine 0.67, INR Comment 0.9, Platelet Count 138, Total Bilirubin 0.3 (JADA JOHANSEN APRN) Results/Orders Lab Results Laboratory Tests Test 02/21/21 11:30 02/21/21 13:40 Range/Units White Blood Count 10.1 4.3-11.0 10^3/uL Red Blood Count 4.58 3.80-5.11 10^6/uL Hemoglobin 15.3 11.5-16.0 g/dL Hematocrit 43 35-52 % Mean Corpuscular Volume 95 80-99 fL Mean Corpuscular Hemoglobin 33 25-34 pg Mean Corpuscular Hemoglobin Concent 35 32-36 g/dL Red Cell Distribution Width 12.2 10.0-14.5 % Platelet Count 138 130-400 10^3/uL Mean Platelet Volume 10.8 9.0-12.2 fL Immature Granulocyte % (Auto) 1 % Neutrophils (%) (Auto) 65 42-75 % Lymphocytes (%) (Auto) 26 12-44 % Monocytes (%) (Auto) 5 0-12 % Eosinophils (%) (Auto) 2 0-10 % Basophils (%) (Auto) 1 0-10 % Neutrophils # (Auto) 6.6 1.8-7.8 10^3/uL Lymphocytes # (Auto) 2.6 1.0-4.0 10^3/uL Monocytes # (Auto) 0.5 0.0-1.0 10^3/uL Eosinophils # (Auto) 0.2 0.0-0.3 10^3/uL Basophils # (Auto) 0.1 0.0-0.1 10^3/uL Immature Granulocyte # (Auto) 0.1 0.0-0.1 10^3/uL Percent Immature Platelet Fraction 5.0 0.0-7.6 % Prothrombin Time 12.5 12.2-14.7 SEC INR Comment 0.9 0.8-1.4 Activated Partial Thromboplast Time 32 24-35 SEC Sodium Level 137 135-145 MMOL/L Potassium Level 4.2 3.6-5.0 MMOL/L Chloride Level 104 98-107 MMOL/L Carbon Dioxide Level 20 L 21-32 MMOL/L Anion Gap 13 5-14 MMOL/L Blood Urea Nitrogen 11 7-18 MG/DL Creatinine 0.67 0.60-1.30 MG/DL Estimat Glomerular Filtration Rate 95 BUN/Creatinine Ratio 16 Glucose Level 138 H 70-105 MG/DL Calcium Level 9.3 8.5-10.1 MG/DL Corrected Calcium 9.3 8.5-10.1 MG/DL Magnesium Level 1.9 1.6-2.4 MG/DL Total Bilirubin 0.3 0.1-1.0 MG/DL Aspartate Amino Transf (AST/SGOT) 19 5-34 U/L Alanine Aminotransferase (ALT/SGPT) 17 0-55 U/L Alkaline Phosphatase 150 H 40-136 U/L Myoglobin 26.1 10.0-92.0 NG/ML Troponin I < 0.028 0.112 H <0.028 NG/ML Total Protein 6.8 6.4-8.2 GM/DL Albumin 4.0 3.2-4.5 GM/DL (ANNEL MARTINEZ MD) Vital Signs/I&O 02/21/21 11:15 Temp 36.9 Pulse 90 Resp 18 B/P (MAP) 133/93 (106) O2 Delivery Room Air (ANNEL MARTINEZ MD) Vital Signs/I&O Capillary Refill : (JADA JOHANSEN APRN) Departure Communication (Admissions) 1127-EKG shows sinus rhythm at [address] segment changes no ectopy. Additionally, it does not show any change from her EKG on 10/17/2020 1411-remained symptom-free blood pressure down to 133/93 heart rate 85. Oxygen saturation 97%. Her repeat troponin did come back little bumped. She does have a history of hypertension unmedicated, hyperlipidemia, alleged premature coronary disease with her father having sustained an MT at the age of 28 she claims. She reports a history of allergy to aspirin but is not sure what it does to her. I will give her a loading dose of Plavix. I spoke with Dr. Devika booth he will consult Dr. Mora will take the admission. (JADA JOHANSEN APRN) Impression Primary Impression: Chest pain Additional Impression: Anxiety Disposition: 01 HOME, SELF-CARE Condition: Stable Admissions Decision to Admit Reason: Admit from ER (General) Decision to Admit/Date: Feb 21, 2021 Time/Decision to Admit Time: 14:21 (JADA JOHANSEN APRN) Departure-Patient Inst. Referrals: [facility] [place] (PCP/Family) Primary Care Physician ATTENDING PHYSICIAN NOTE: I was physically present as attending physician in the emergency department during the care of this patient, but I was not directly involved in the decision making or delivery of care for this patient. (ANNEL MARTINEZ MD) JADA JOHANSEN APRN Feb 21, 2021 11:25 ANNEL MARTINEZ MD Feb 22, 2021 06:28
[2021-02-21] MEDS ORDERED: LORazepam INJ 2 MG/ML (ATIVAN) VIAL IVP PRN (11:30)
[2021-02-21 11:36] LABS: EOSINOPHILS # (AUTO) 0.2 10^3/uL (0.0-0.3); EOSINOPHILS % (AUTO) 2 % (0-10); MEAN PLATELET VOLUME 10.8 fL (9.0-12.2)
[2021-02-21 11:38] LABS: BASOPHILS # (AUTO) 0.1 10^3/uL (0.0-0.1); BASOPHILS % (AUTO) 1 % (0-10); HEMATOCRIT 43 % (35-52); HEMOGLOBIN 15.3 g/dL (11.5-16.0); LYMPHOCYTES # (AUTO) 2.6 10^3/uL (1.0-4.0); LYMPHOCYTES % (AUTO) 26 % (12-44); MEAN CORPUSCULAR HEMOGLOBIN 33 pg (25-34); MEAN CORPUSCULAR HGB CONC 35 g/dL (32-36); MEAN CORPUSCULAR VOLUME 95 fL (80-99); MONOCYTES # (AUTO) 0.5 10^3/uL (0.0-1.0); MONOCYTES % (AUTO) 5 % (0-12); NEUTROPHILS # (AUTO) 6.6 10^3/uL (1.8-7.8); NEUTROPHILS % (AUTO) 65 % (42-75); PLATELET COUNT 138 10^3/uL (130-400); WHITE BLOOD COUNT 10.1 10^3/uL (4.3-11.0)
[2021-02-21 11:49] LABS: INR 0.9 (0.8-1.4); PROTHROMBIN TIME PATIENT 12.5 SEC (12.2-14.7)
[2021-02-21 11:52] LABS: POTASSIUM 4.2 MMOL/L (3.6-5.0)
[2021-02-21 11:54] LABS: CALCIUM 9.3 MG/DL (8.5-10.1)
[2021-02-21 11:55] LABS: TOTAL PROTEIN 6.8 GM/DL (6.4-8.2)
[2021-02-21 11:56] LABS: BILIRUBIN,TOTAL 0.3 MG/DL (0.1-1.0)
[2021-02-21 11:58] LABS: CREATININE SERUM 0.67 MG/DL (0.60-1.30)
--- NOTE | 2021-02-21 12:00 | Diagnostic Imaging Report ---
Indication: Chest pain. TIME OF EXAM: 11:37 AM Correlation is made with prior chest from 10/17/2020. The heart size is normal. Minimal density in the right base is noted. Otherwise lungs are clear. Pulmonary vascularity is normal. There is no effusion or pneumothorax. IMPRESSION: Minimal right basilar infiltrate or atelectasis. Dictated by: Dictated on workstation # [id number]
[2021-02-21 12:01] LABS: MAGNESIUM 1.9 MG/DL (1.6-2.4)
[2021-02-21] MEDS ORDERED: CLOPIDOGREL 300 MG (PLAVIX) TABLET PO ONE (14:15)
[2021-02-21] MEDS ORDERED: ENOXAPARIN 100 MG/1 ML (LOVENOX) SYR SC ONE (14:30)
[2021-02-21 16:25] VITALS: BP 117/87
--- NOTE | 2021-02-21 16:27 | History & Physical ---
HPI History of Present Illness: 45 yo female presented to ER via ambulance due to chest pain at home that occurred while arguing with her ex-, 20 minutes prior to calling the ambulance. Was washing dishes and arguing, and experienced squeezing crushing chest pain that radiated into left arm and fingers, felt nauseous at the time but did not vomit. Chest pain resolved with nitroglycerin given by EMS. She notes this has occurred in the past, and states up to 30-40 times per week, which she relates to anxiety and PTSD. She rates pain as 10/10 and the only noted provoking factors are arguing or triggering words from people at work. She admits hypertension, but states her bp is only high when she is angry, and she is not on BP meds anymore. Date seen by provider: Feb 21, 2021 Time Seen by Provider: 16:46 Attending Physician Vee Thompson MD [facility] [place] Consult Date of Admission Feb 21, 2021 at 14:36 Home Medications Home Medications Reviewed patient Home Medication Reconciliation performed by pharmacy medication reconciliations biochemistry technician and/or nursing. Patients Allergies have been reviewed. Allergies Coded Allergies: aspirin (Verified Allergy, Severe, ANAPHYLAXIS, 04/07/19) erythromycin base (Verified Allergy, Mild, RASH, 04/07/19) tramadol (Unverified Allergy, Mild, VOMITING, 04/07/19) venom-wasp (Unverified Allergy, Mild, SWELLING, 04/07/19) sumatriptan (Verified Adverse Reaction, Mild, NAUSEA, 04/07/19) Vomits with oral form, no reaction with injectable form sumatriptan succinate (Verified Adverse Reaction, Mild, NAUSEA, 04/07/19) Vomits with oral form, no reaction with injectable form [id number] Hx Patient Social History Living Status: Lives with ex- and his children and her two children Smoking Status: Current Everyday Smoker (2 ppd) 2nd Hand Smoke Exposure: Yes Recent Hopitalizations: No Alcohol Use?: No (history of alcoholism, reports last drink was around 2011) Substance type: Caffeine, Nicotine Tobacco type used: Cigarettes Have you traveled recently?: No Immunizations Up To Date Tetanus Booster (TDap): Less than 5yrs Date of Pneumonia Vaccine: Apr 07, 2011 Date of Influenza Vaccine: Dec 31, 2019 Past Medical History PMHx: HTN HLD PTSD Espinosa's esophagus SurgHx: 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 with bilateral oophorectomy for unclear cancer type Appendectomy Cholecystectomy Family Medical History Significant Family History: Cancer (mother, esophageal), CAD Under 55 Years Old (father at age 28 from [place]), Stroke, Other Conditions/Hx Review of Systems ([facility]) Constitutional: No fever Respiratory: No cough Cardiovascular: see HPI Gastrointestinal: No abdominal pain, No constipation, No diarrhea, No vomiting Musculoskeletal: No joint swelling, No muscle pain Skin: No rash Psychiatric/Neurological: Anxiety, Depressed, Headache, Numbness (left fingers) Reviewed Test Results Reviewed Test Results Lab Laboratory Tests Test 02/21/21 11:30 02/21/21 13:40 Range/Units White Blood Count 10.1 4.3-11.0 10^3/uL Red Blood Count 4.58 3.80-5.11 10^6/uL Hemoglobin 15.3 11.5-16.0 g/dL Hematocrit 43 35-52 % Mean Corpuscular Volume 95 80-99 fL Mean Corpuscular Hemoglobin 33 25-34 pg Mean Corpuscular Hemoglobin Concent 35 32-36 g/dL Red Cell Distribution Width 12.2 10.0-14.5 % Platelet Count 138 130-400 10^3/uL Mean Platelet Volume 10.8 9.0-12.2 fL Immature Granulocyte % (Auto) 1 % Neutrophils (%) (Auto) 65 42-75 % Lymphocytes (%) (Auto) 26 12-44 % Monocytes (%) (Auto) 5 0-12 % Eosinophils (%) (Auto) 2 0-10 % Basophils (%) (Auto) 1 0-10 % Neutrophils # (Auto) 6.6 1.8-7.8 10^3/uL Lymphocytes # (Auto) 2.6 1.0-4.0 10^3/uL Monocytes # (Auto) 0.5 0.0-1.0 10^3/uL Eosinophils # (Auto) 0.2 0.0-0.3 10^3/uL Basophils # (Auto) 0.1 0.0-0.1 10^3/uL Immature Granulocyte # (Auto) 0.1 0.0-0.1 10^3/uL Percent Immature Platelet Fraction 5.0 0.0-7.6 % Prothrombin Time 12.5 12.2-14.7 SEC INR Comment 0.9 0.8-1.4 Activated Partial Thromboplast Time 32 24-35 SEC Sodium Level 137 135-145 MMOL/L Potassium Level 4.2 3.6-5.0 MMOL/L Chloride Level 104 98-107 MMOL/L Carbon Dioxide Level 20 L 21-32 MMOL/L Anion Gap 13 5-14 MMOL/L Blood Urea Nitrogen 11 7-18 MG/DL Creatinine 0.67 0.60-1.30 MG/DL Estimat Glomerular Filtration Rate 95 BUN/Creatinine Ratio 16 Glucose Level 138 H 70-105 MG/DL Calcium Level 9.3 8.5-10.1 MG/DL Corrected Calcium 9.3 8.5-10.1 MG/DL Magnesium Level 1.9 1.6-2.4 MG/DL Total Bilirubin 0.3 0.1-1.0 MG/DL Aspartate Amino Transf (AST/SGOT) 19 5-34 U/L Alanine Aminotransferase (ALT/SGPT) 17 0-55 U/L Alkaline Phosphatase 150 H 40-136 U/L Myoglobin 26.1 10.0-92.0 NG/ML Troponin I < 0.028 0.112 H <0.028 NG/ML Total Protein 6.8 6.4-8.2 GM/DL Albumin 4.0 3.2-4.5 GM/DL Radiology CXR 02/21 DRAFT: IMPRESSION: Minimal right basilar infiltrate or atelectasis. Physical Exam-([facility]) Physical Exam Vital Signs VS - Last 72 Hours, by Label 02/21/21 02/21/21 11:15 14:54 Temp 36.9 Pulse 90 80 Resp 18 16 B/P (MAP) 133/93 (106) 130/100 Pulse Ox 97 O2 Delivery Room Air Capillary Refill : Less Than 3 Seconds General Appearance: no apparent distress Eyes: Bilateral Eye PERRL Respiratory: lungs clear Cardiovascular: regular rate, rhythm, no murmur Peripheral Pulses: 2+ Radial Pulses (R), 2+ Radial Pulses (L) Gastrointestinal: non tender Neurologic/Psychiatric: alert, oriented x 3; No motor weakness (bilateral upper extremities) Skin: normal color, warm/dry Assessment/Plan Assessment/Plan Admission Status: Observation (1) Elevated troponin I level Status: Acute Assessment & Plan: Treatment dose enoxaparin and plavix started, Cardiology consulted, appreciate recommendations. Evaluate lipids in am. (2) Chest pain Status: Acute (3) Anxiety Status: Chronic Assessment & Plan: Chronic, difficult to manage, has failed per her report ZolofLinh russell Abilify, Celexa. Currently feeling okay after IV ativan. (4) DVT prophylaxis Status: Acute Assessment & Plan: On treatment dose enoxaparin for cardiac issues noted above. VEE THOMPSON MD Feb 21, 2021 16:27
[2021-02-21] MEDS ORDERED: NITROGLYCERIN 0.4 MG SL TABS BTL 25'S SL PRN (16:30)
[2021-02-21] MEDS ORDERED: POLY17PO6 PO (16:33)
[2021-02-21] MEDS ORDERED: RT-ALBUINH IH (16:33)
[2021-02-21] MEDS ORDERED: PANT40TA2 PO (16:33)
[2021-02-21] MEDS ORDERED: FAMO10TA43 PO (16:33)
[2021-02-21] MEDS ORDERED: TRAZ-227 PO (16:33)
--- NOTE | 2021-02-21 16:58 | Consultation-Cardiology ---
HPI-Cardiology Cardiology Consultation: Date of Consultation 02/21/2021 Date of Admission 02/21/2021 Attending Physician Randi Mora MD Admitting Physician [facility] Consulting Physician LYNNETTE RICHARDS JR, MD HPI: Time Seen by a Provider: 16:54 Chief Complaint: Reason for consultation: Chest pain and abnormal troponin level. I had the pleasure of seeing Lamar in the cardiac stepdown unit at [facility] in [place], [place] this afternoon. She has no known history of coronary artery disease. Earlier this morning she was arguing with her ex- and suddenly developed substernal chest tightness with radiation to to her neck, left shoulder and left arm all the way down to the elbow. She felt like somebody was squeezing her chest. This made her feel short of breath. She was also very nauseous but did not vomit. Her left hand became numb. She told her ex- who then called 911. Upon arrival of the emergency squad she was given 1 sublingual nitroglycerin and her symptoms started to subside. She was then taken to the emergency room for further evaluation. The total time of chest discomfort was approximately 20-30 minutes. Her chest discomfort then resolved but her left hand is still numb. Her breathing is back to normal. Her nausea has resolved. 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 She denies paroxysmal nocturnal dyspnea, orthopnea, or palpitations. She gets occasional lightheaded spells but denies any syncope. She denies any lower extremity edema. She does smoke cigarettes. Her father had his first myocardial infarction at the age of 28. After she was admitted to the hospital, her second troponin level became elevated and a cardiology consultation was requested. Certain portions of this document may have been dictated utilizing voice recognition technology. Inherent to this technology, typographical and grammatical errors may exist. As much as I am diligent to identify and correct these mistakes, some errors may remain in the document. Review of Systems-Cardiology Review of Systems Other comments Review of 10 organ systems is as per the history of present illness, otherwise negative. [id number] Hx Patient Social History Marrital Status: Living Status: Lives with ex- and his children and her two children Smoking Status: Current Everyday Smoker (2 ppd) 2nd Hand Smoke Exposure: Yes Have you traveled recently?: No Alcohol Use?: No (history of alcoholism, reports last drink was around 2011) Substance type: Caffeine, Nicotine Pt feels they are or have been: No Tobacco type used: Cigarettes Immunizations Up To Date Tetanus Booster (TDap): Less than 5yrs Date of Pneumonia Vaccine: Apr 07, 2011 Date of Influenza Vaccine: Dec 31, 2019 Past Medical History PMH As described under Assessment. Family Medical History Family History: Alcoholism 19 FATHER Cardiovascular disease 19 FATHER Dementia 19 MOTHER Drug abuse 19 FATHER FH: cancer 19 FATHER 19 MOTHER (ESPHAGUS) Myocardial infarction 19 FATHER Psychosocial problem 19 FATHER Thyroid disease 19 MOTHER G8 BROTHER G8 SISTER No Family History of: AIDS Alzheimer's disease Arthritis Asthma Cancer of mouth Cataracts Colon cancer Completed stroke Diabetes mellitus Glaucoma Hypertension Kidney disease Parkinson's disease Prostate cancer Respiratory disorder Seizure disorder Severe allergy Tuberculosis Allergies and Home Medications Allergies Coded Allergies: aspirin (Verified Allergy, Severe, ANAPHYLAXIS, 04/07/19) erythromycin base (Verified Allergy, Mild, RASH, 04/07/19) tramadol (Unverified Allergy, Mild, VOMITING, 04/07/19) venom-wasp (Unverified Allergy, Mild, SWELLING, 04/07/19) sumatriptan (Verified Adverse Reaction, Mild, NAUSEA, 04/07/19) Vomits with oral form, no reaction with injectable form sumatriptan succinate (Verified Adverse Reaction, Mild, NAUSEA, 04/07/19) Vomits with oral form, no reaction with injectable form Patient Home Medication List Home Medication List Reviewed: Yes Albuterol Sulfate (Proair Hfa) 1 Puff Puff, 2 PUFF IH Q4H, (Reported) Entered as Reported by: SALONI DOWLING on 02/21/211632 Last Action: Reviewed Famotidine (Pepcid AC) 10 Mg Tablet, 10 MG PO BID WITH MEALS, (Reported) Entered as Reported by: SALONI DOWLING on 02/21/211632 Last Action: Reviewed Pantoprazole Sodium (Protonix) 40 Mg Tablet.dr, 40 MG PO DAILY, (Reported) Entered as Reported by: SALONI DOWLING on 02/21/211632 Last Action: Reviewed Polyethylene Glycol 3350 (Miralax) 17 Gm Powd.pack, 17 GM PO BID, (Reported) Entered as Reported by: SALONI DOWLING on 02/21/211632 Last Action: Reviewed Trazodone HCl (Trazodone HCl) 100 Mg Tablet, 100 MG PO HS, (Reported) Entered as Reported by: SALONI DOWLING on 02/21/211632 Last Action: Reviewed Exam Vital Signs Vital Signs Date Time Temp Pulse Resp B/P (MAP) Pulse Ox O2 Delivery O2 Flow Rate FiO2 02/21/21 16:26 74 02/21/21 16:25 36.2 16 117/87 (97) 97 Room Air Physical Exam General: Alert. No acute distress. Well nourished and appears stated age. Eye: Extraocular movements are intact. Conjunctivae are clear. There are no xanthelasma. HENT: Normocephalic. Atraumatic. Carotid pulsations 2/2 without bruits. Poor dentition. Neck: Jugular venous pressure does not appear elevated. No thyromegaly appreciated. Respiratory: Lungs are clear to auscultation. Respirations are non-labored. Breath sounds are equal. Symmetrical chest wall expansion. Cardiovascular: Normal rate. Regular rhythm. No murmur. No gallop. Point of maximal impulse is not appear displaced. Good pulses equal in all extremities. No edema. Gastrointestinal: Soft. Normal bowel sounds. Skin: Skin turgor is normal. There is no pallor. Musculoskeletal: No kyphosis or scoliosis appreciated. Neurologic: Alert and oriented to person, place, time. Cranial nerves 3-12 appear grossly intact. The patient has good motor tone strength in the upper and lower extremities bilaterally. Psychiatric: Cooperative. Appropriate mood & affect. Labs Laboratory Tests Test 02/21/21 11:30 02/21/21 13:40 Range/Units White Blood Count 10.1 4.3-11.0 10^3/uL Red Blood Count 4.58 3.80-5.11 10^6/uL Hemoglobin 15.3 11.5-16.0 g/dL Hematocrit 43 35-52 % Mean Corpuscular Volume 95 80-99 fL Mean Corpuscular Hemoglobin 33 25-34 pg Mean Corpuscular Hemoglobin Concent 35 32-36 g/dL Red Cell Distribution Width 12.2 10.0-14.5 % Platelet Count 138 130-400 10^3/uL Mean Platelet Volume 10.8 9.0-12.2 fL Immature Granulocyte % (Auto) 1 % Neutrophils (%) (Auto) 65 42-75 % Lymphocytes (%) (Auto) 26 12-44 % Monocytes (%) (Auto) 5 0-12 % Eosinophils (%) (Auto) 2 0-10 % Basophils (%) (Auto) 1 0-10 % Neutrophils # (Auto) 6.6 1.8-7.8 10^3/uL Lymphocytes # (Auto) 2.6 1.0-4.0 10^3/uL Monocytes # (Auto) 0.5 0.0-1.0 10^3/uL Eosinophils # (Auto) 0.2 0.0-0.3 10^3/uL Basophils # (Auto) 0.1 0.0-0.1 10^3/uL Immature Granulocyte # (Auto) 0.1 0.0-0.1 10^3/uL Percent Immature Platelet Fraction 5.0 0.0-7.6 % Prothrombin Time 12.5 12.2-14.7 SEC INR Comment 0.9 0.8-1.4 Activated Partial Thromboplast Time 32 24-35 SEC Sodium Level 137 135-145 MMOL/L Potassium Level 4.2 3.6-5.0 MMOL/L Chloride Level 104 98-107 MMOL/L Carbon Dioxide Level 20 L 21-32 MMOL/L Anion Gap 13 5-14 MMOL/L Blood Urea Nitrogen 11 7-18 MG/DL Creatinine 0.67 0.60-1.30 MG/DL Estimat Glomerular Filtration Rate 95 BUN/Creatinine Ratio 16 Glucose Level 138 H 70-105 MG/DL Calcium Level 9.3 8.5-10.1 MG/DL Corrected Calcium 9.3 8.5-10.1 MG/DL Magnesium Level 1.9 1.6-2.4 MG/DL Total Bilirubin 0.3 0.1-1.0 MG/DL Aspartate Amino Transf (AST/SGOT) 19 5-34 U/L Alanine Aminotransferase (ALT/SGPT) 17 0-55 U/L Alkaline Phosphatase 150 H 40-136 U/L Myoglobin 26.1 10.0-92.0 NG/ML Troponin I < 0.028 0.112 H <0.028 NG/ML Total Protein 6.8 6.4-8.2 GM/DL Albumin 4.0 3.2-4.5 GM/DL Radiology Echocardiogram was a technically difficult study but showed normal left ventricular chamber size with mild concentric left ventricular hypertrophy. There was normal left ventricular systolic function with an estimated ejection fraction of 55-60%. There was evidence of grade 1 diastolic dysfunction. The pulmonary artery pressure could not be estimated. ECG Impression ECG Comment Sinus rhythm with left atrial abnormality, nonspecific intraventricular conduction delay and nonspecific T wave changes. Diagnosis/Problems Diagnosis/Problems (1) Chest pain Status: Acute Assessment & Plan: Exact etiology unclear. I initially thought this could be due to her esophageal reflux disease. However, then her second troponin level b ecame elevated. This raises a concern for unstable angina. She is scheduled to have 1 additional troponin level later this evening. If the troponin level continues to trend upwards, this could be a sign of an acute myocardial infarction and she may need a cardiac catheterization. Since she is now pain- free, this could be done on a semiurgent basis tomorrow morning. If her trop onin level starts to trend downwards, then I would consider a nuclear stress test in the morning. She has been started on clopidogrel by the emergency room physician. She has a reported allergy to aspirin. She needs to be n.p.o. after midnight regardless of which test we decided to perform in the morning. If she has recurrent chest discomfort overnight, she will need another el ectrocardiogram. (2) Elevated troponin I level Status: Acute Assessment & Plan: As above, she has mildly elevated troponin level which could be consistent with an acute myocardial infarction. However, there are no ischemic changes on her electrocardiogram and her echocardiogram showed normal left ventricular function although regional wall motion was difficult to assess due to the technically difficult nature of the study. We will proceed as above. If the next troponin level becomes more elevated, then I would start her on therapeutic dosing of enoxaparin at 1 mg/kg every 12 hours. (3) Mixed hyperlipidemia Assessment & Plan: I have ordered the atorvastatin she was taking at home. She is scheduled for a lipid panel in the morning. (4) Gastroesophageal reflux disease with esophagitis Assessment & Plan: Unclear whether or not this could be causing or at least contributing to the patient's chest pain. I will double her dose of pantoprazole to 40 mg twice a day. (5) Cigarette smoker Assessment & Plan: She needs to work on quitting smoking. She was counseled in this regard. (6) Obesity Assessment & Plan: She also needs to work on weight loss. LYNNETTE RICHARDS JR, MD Feb 21, 2021 16:58
[2021-02-21] MEDS: LORazepam INJ 2 MG/ML (ATIVAN) VIAL IV PRN (17:57)
[2021-02-21] MEDS ORDERED: FAMOTIDINE 20 MG (PEPCID) TABLET PO SCH (18:00)
[2021-02-21] MEDS: RT-ALBUTEROL SULF 2.5 MG/3 ML PRE-MIX VIAL IH SCH ×2 (18:46→22:52)
[2021-02-21 20:51] VITALS: BP 133/96
[2021-02-21] MEDS ORDERED: traZODone 100 MG (DESYREL) TAB PO SCH (21:00)
[2021-02-21] MEDS ORDERED: AtorvaSTATin TABLET 10 MG TABLET PO SCH (21:00)
[2021-02-21] MEDS ORDERED: polyethylene glycoL POWDER 17 GM (MIRALAX) PACK PO SCH (21:00)
[2021-02-21] MEDS ORDERED: PANTOPRAZOLE 40 MG (PROTONIX) TAB PO SCH (21:00)
[2021-02-21 22:38] VITALS: BP 133/96
[2021-02-22] VITALS: BP 109/82
[2021-02-22] MEDS: RT-ALBUTEROL SULF 2.5 MG/3 ML PRE-MIX VIAL IH SCH ×2 (02:12→07:37)
[2021-02-22] MEDS ORDERED: ACETAMINOPHEN 500 MG TAB (TYLENOL) ONE (02:27)
[2021-02-22] MEDS ORDERED: ACETAMINOPHEN 500 MG TAB (TYLENOL) PO PRN (02:30)
[2021-02-22] MEDS: LORazepam INJ 2 MG/ML (ATIVAN) VIAL IV PRN (02:34)
[2021-02-22 04:13] VITALS: BP 109/73
[2021-02-22] MEDS ORDERED: ENOXAPARIN 100 MG/1 ML (LOVENOX) SYR SC SCH (05:00)
[2021-02-22 06:11] LABS: TRIGLYCERIDES 187 MG/DL (<150); VLDL CHOLESTEROL 37 MG/DL (5-40)
[2021-02-22 06:16] LABS: CHOLESTEROL 189 MG/DL (< 200)
[2021-02-22 06:17] LABS: HDL CHOLESTEROL 32 MG/DL (40-60)
[2021-02-22] MEDS ORDERED: CATHETER FLUSH 10 ML SYR IV PRN (07:00)
--- NOTE | 2021-02-22 08:05 | Cardiology Progress Note ---
Progress Note-Cardiology Events since last exam Date Seen by Provider: Feb 22, 2021 Time Seen by Provider: 08:04 Events since last exam I am following her for chest pain and elevated troponin level. She denies any further chest or arm pain. Her left hand is still numb. She denies dyspnea, palpitations, syncope, or ankle edema. Certain portions of this document may have been dictated utilizing voice recognition technology. Inherent to this technology, typographical and grammatical errors may exist. As much as I am diligent to identify and correct these mistakes, some errors may remain in the document. Vitals Last set of Vitals Signs Vital Signs 02/21/21 02/22/21 02/22/21 22:38 09:18 09:23 Temp 37.3 Pulse 87 Resp 15 B/P (MAP) 120/89 (99) Pulse Ox 96 O2 Delivery Room Air FiO2 35 Labs Labs Laboratory Tests 02/21/21 11:30 Exam Vital Signs Vital Signs Date Time Temp Pulse Resp B/P (MAP) Pulse Ox O2 Delivery O2 Flow Rate FiO2 02/22/21 09:23 96 Room Air 02/22/21 09:18 37.3 87 15 120/89 (99) 02/21/21 22:38 35 Physical Exam General: Alert. No acute distress. She is overweight. Eye: No xanthelasma. HENT: Normocephalic. Neck: Jugular venous pressure does not appear elevated. Respiratory: Lungs are clear to auscultation. Respirations are non-labored. Breath sounds are equal. Symmetrical chest wall expansion. Cardiovascular: Normal rate. Regular rhythm. No murmur. No gallop. No edema. Gastrointestinal: Soft. Normal bowel sounds. Skin: Warm. Dry. Neurologic: Alert and oriented to person, place, time. Cranial nerves 3-11 grossly intact. Psychiatric: Cooperative. Appropriate mood & affect. Labs Laboratory Tests Test 02/21/21 11:30 02/21/21 13:40 02/21/21 18:15 02/21/21 22:15 Range/Units White Blood Count 10.1 4.3-11.0 10^3/uL Red Blood Count 4.58 3.80-5.11 10^6/uL Hemoglobin 15.3 11.5-16.0 g/dL Hematocrit 43 35-52 % Mean Corpuscular Volume 95 80-99 fL Mean Corpuscular Hemoglobin 33 25-34 pg Mean Corpuscular Hemoglobin Concent 35 32-36 g/dL Red Cell Distribution Width 12.2 10.0-14.5 % Platelet Count 138 130-400 10^3/uL Mean Platelet Volume 10.8 9.0-12.2 fL Immature Granulocyte % (Auto) 1 % Neutrophils (%) (Auto) 65 42-75 % Lymphocytes (%) (Auto) 26 12-44 % Monocytes (%) (Auto) 5 0-12 % Eosinophils (%) (Auto) 2 0-10 % Basophils (%) (Auto) 1 0-10 % Neutrophils # (Auto) 6.6 1.8-7.8 10^3/uL Lymphocytes # (Auto) 2.6 1.0-4.0 10^3/uL Monocytes # (Auto) 0.5 0.0-1.0 10^3/uL Eosinophils # (Auto) 0.2 0.0-0.3 10^3/uL Basophils # (Auto) 0.1 0.0-0.1 10^3/uL Immature Granulocyte # (Auto) 0.1 0.0-0.1 10^3/uL Percent Immature Platelet Fraction 5.0 0.0-7.6 % Prothrombin Time 12.5 12.2-14.7 SEC INR Comment 0.9 0.8-1.4 Activated Partial Thromboplast Time 32 24-35 SEC Sodium Level 137 135-145 MMOL/L Potassium Level 4.2 3.6-5.0 MMOL/L Chloride Level 104 98-107 MMOL/L Carbon Dioxide Level 20 L 21-32 MMOL/L Anion Gap 13 5-14 MMOL/L Blood Urea Nitrogen 11 7-18 MG/DL Creatinine 0.67 0.60-1.30 MG/DL Estimat Glomerular Filtration Rate 95 BUN/Creatinine Ratio 16 Glucose Level 138 H 70-105 MG/DL Calcium Level 9.3 8.5-10.1 MG/DL Corrected Calcium 9.3 8.5-10.1 MG/DL Magnesium Level 1.9 1.6-2.4 MG/DL Total Bilirubin 0.3 0.1-1.0 MG/DL Aspartate Amino Transf (AST/SGOT) 19 5-34 U/L Alanine Aminotransferase (ALT/SGPT) 17 0-55 U/L Alkaline Phosphatase 150 H 40-136 U/L Myoglobin 26.1 10.0-92.0 NG/ML Troponin I < 0.028 0.112 H 0.119 H 0.057 H <0.028 NG/ML Total Protein 6.8 6.4-8.2 GM/DL Albumin 4.0 3.2-4.5 GM/DL Test 02/22/21 05:14 Range/Units Triglycerides Level 187 H <150 MG/DL Cholesterol Level 189 < 200 MG/DL LDL Cholesterol Direct 146 H 1-129 MG/DL VLDL Cholesterol 37 5-40 MG/DL HDL Cholesterol 32 L 40-60 MG/DL Radiology REGADENOSON NUCLEAR STRESS TEST (02/22/2021): 1. Normal heart rate and a blunted blood pressure response to regadenoson. 2. There was no chest discomfort, arrhythmias, or electrocardiogram changes during the test. 3. There was normal myocardial perfusion in all segments without evidence of infarction or ischemia. 4. There was normal wall motion in all segments with a calculated ejection fraction of 80%. Diagnosis/Problems Diagnosis/Problems (1) Chest pain Status: Resolved Assessment & Plan: Exact etiology unclear. I cannot entirely explain the elevated troponin level. However, her nuclear stress test was normal. I suspect she may have had noncardiac chest pain, possibly due to her gastroesophageal reflux disease and Espinosa's esophagus. I have changed her pantoprazole to twice daily dosing. I recommend she be discharged on the higher dose of pantoprazole. It would not be unreasonable to continue clopidogrel for the short-term. She was started on clopidogrel because she has an allergy to aspirin. From a cardiac standpoint, the patient can be discharged home. I have asked the community recreation coordinator to schedule a follow-up appointment for the patient to see me in my office in 1 month. If she has ongoing chest discomfort after discharge, she may need further evaluation with a cardiac catheterization. Resolution Date/Time: 02/22/21 @ 10:22 (2) Elevated troponin I level Status: Acute Assessment & Plan: As above, she has a mildly elevated troponin level. The level went up then plateaued and came back down. This was in somewhat of a [place]ena area. I am not convinced that she had a myocardial infarction, either type I or type II non-ST elevation myocardial infarction. I recommend we proceed as above. I do not see any strong indication for cardiac catheterization at this time. (3) Mixed hyperlipidemia Assessment & Plan: She had been taking atorvastatin at home but ran out of refills. I have restarted the atorvastatin but doubled the dose. I recommend she be discharged on atorvastatin 20 mg daily. She should have a follow-up lipid panel and comprehensive metabolic panel in approximately 6 weeks. I can arrange this through my office when I see her again in follow-up. (4) Gastroesophageal reflux disease with esophagitis Assessment & Plan: Unclear whether or not this could be causing or at least contributing to the patient's chest pain. As above, I have doubled her dose of pantoprazole to 40 mg twice a day. (5) Cigarette smoker Assessment & Plan: She needs to work on quitting smoking. She was counseled in this regard. (6) Obesity Assessment & Plan: She also needs to work on weight loss. LYNNETTE RICHARDS JR, MD Feb 22, 2021 08:05
[2021-02-22] MEDS ORDERED: REGADENOSON 0.4 MG/5 ML SYR (LEXISCAN) IV ONE ×2 (08:09→08:30)
[2021-02-22] MEDS ORDERED: FUROSEMIDE 40 MG/4 ML INJ (LASIX) INJ ONE (08:15)
[2021-02-22] MEDS ORDERED: CLOPIDOGREL 75 MG (PLAVIX) TABLET PO SCH (09:00)
[2021-02-22] MEDS ORDERED: PANTOPRAZOLE 40 MG (PROTONIX) TAB PO SCH (09:00)
[2021-02-22 09:18] VITALS: BP 120/89
--- NOTE | 2021-02-22 10:12 | NUCLEAR STRESS TEST ---
REGADENOSON NUCLEAR STRESS Date of procedure: 02/22/2021. Primary care provider: [facility] Admitting physician: Randi Mora MD. INDICATION: Chest pain and abnormal troponin level. BASELINE ELECTROCARDIOGRAM: Sinus rhythm with nonspecific anterior T wave changes. STRESS TEST PROCEDURE: This was initially intended to be a treadmill nuclear stress test but when the patient went to stage II on the treadmill, she became very dizzy and needed to sit down. The stress test was then converted to a regadenoson stress test. The patient was administered 0.4 mg of intravenous Regadenoson. The resting heart rate was 86 bpm and the peak heart rate was 111 bpm. The resting blood pressure was 100/80 mmHg and the minimum blood pressure was 100/80 mmHg. This represents a normal heart rate and a blunted blood pressure response to Regadenoson. The test was stopped due to the protocol. There was no chest discomfort during the test. There were no arrhythmias during the test. There were no significant stress induced electrocardiogram changes. NUCLEAR PROCEDURE: The patient was administered 10.4 mCi of intravenous technetium 99m Tetrofosmin at rest for the rest images. The patient was subsequently administered 31.6 mCi of intravenous technetium 99m Tetrofosmin at peak stress for the stress images. Following an appropriate wait after each injection, imaging was obtained. The images were subsequently processed and reformatted in the usual views. Gated imaging was obtained. The image quality was adequate but with a mild degree of gastrointestinal attenuation artifact. CT attenuation correction was used as a adjunct to standard imaging. Both the corrected and uncorrected images were reviewed for interpretation. NUCLEAR RESULTS: There was normal myocardial perfusion in all segments without evidence of infarction or ischemia. There was normal left ventricular chamber size with an end-diastolic volume of 45 mL and an end-systolic volume of 9 mL. There was no evidence of transient ischemic dilatation. The TID ratio was 1.09. There was normal wall motion in all segments with a calculated ejection fraction of 80%. IMPRESSION: 1. Normal heart rate and a blunted blood pressure response to regadenoson. 2. There was no chest discomfort, arrhythmias, or electrocardiogram changes during the test. 3. There was normal myocardial perfusion in all segments without evidence of infarction or ischemia. 4. There was normal wall motion in all segments with a calculated ejection fraction of 80%. Certain portions of this document may have been dictated utilizing voice recognition technology. Inherent to this technology, typographical and grammatical errors may exist. As much as I am diligent to identify and correct these mistakes, some errors may remain in the document. LYNNETTE RICHARDS JR, MD Feb 22, 2021 10:12
[2021-02-22] MEDS ORDERED: ROSU10TA28 PO (10:21)
[2021-02-22] MEDS ORDERED: PANT40TA2 PO (10:21)
--- NOTE | 2021-02-22 10:23 | Discharge Summary ---
Discharge Summary Hospital Course Problems/Diagnosis: (1) Elevated troponin I level Status: Acute Assessment & Plan: Treatment dose enoxaparin and plavix started, Cardiology consulted, troponin trended down, stress test normal, discharged on statin. (2) Chest pain Status: Resolved Resolution Date/Time: 02/22/21 @ 10:22 (3) Anxiety Status: Chronic Assessment & Plan: Chronic, difficult to manage, has failed per her report Zolo ft, Lexapro, Abilifgetachew, Celexa. Currently feeling okay after IV ativan. Hospital Course Date of Admission: Feb 21, 2021 at 14:36 Admission Diagnosis : Family Physician/Provider: [place] [place] Date of Discharge: 02/22/21 Discharge Diagnosis: See problem list Hospital Course: See problem list Labs and Pending Lab Test: Laboratory Tests 02/21/21 11:30: White Blood Count 10.1, Red Blood Count 4.58, Hemoglobin 15.3, Hematocrit 43, Mean Corpuscular Volume 95, Mean Corpuscular Hemoglobin 33, Mean Corpuscular Hemoglobin Concent 35, Red Cell Distribution Width 12.2, Platelet Count 138, Mean Platelet Volume 10.8, Immature Granulocyte % (Auto) 1, Neutrophils (%) (Auto) 65, Lymphocytes (%) (Auto) 26, Monocytes (%) (Auto) 5, Eosinophils (%) (Auto) 2, Basophils (%) (Auto) 1, Neutrophils # (Auto) 6.6, Lymphocytes # (Auto) 2.6, Monocytes # (Auto) 0.5, Eosinophils # (Auto) 0.2, Basophils # (Auto) 0.1, Immature Granulocyte # (Auto) 0.1, Percent Immature Platelet Fraction 5.0, Prothrombin Time 12.5, INR Comment 0.9, Activated Partial Thromboplast Time 32, Sodium Level 137, Potassium Level 4.2, Chloride Level 104, Carbon Dioxide Level 20L, Anion Gap 13, Blood Urea Nitrogen 11, Creatinine 0.67, Estimat Glomerular Filtration Rate 95, BUN/Creatinine Ratio 16, Glucose Level 138H, Calcium Level 9.3, Corrected Calcium 9.3, Magnesium Level 1.9, Total Bilirubin 0.3, Aspartate Amino Transf (AST/SGOT) 19, Alanine Aminotransferase (ALT/SGPT) 17, Alkaline Phosphatase 150H, Myoglobin 26.1, Troponin I < 0.028, Total Protein 6.8, Albumin 4.0 02/21/21 13:40: Troponin I 0.112H 02/21/21 18:15: Troponin I 0.119H 02/21/21 22:15: Troponin I 0.057H 02/22/21 05:14: Triglycerides Level 187H, Cholesterol Level 189, LDL Cholesterol Direct 146H, VLDL Cholesterol 37, HDL Cholesterol 32L Home Meds Active Rosuvastatin Calcium 10 Mg Tablet 10 Mg PO HS Protonix (Pantoprazole Sodium) 40 Mg Tablet.dr 40 Mg PO BID 30 Days Reported Proair Hfa (Albuterol Sulfate) 1 Puff Puff 2 Puff IH Q4H 30 Days 1 PUFF = 90 MCG Miralax (Polyethylene Glycol 3350) 17 Gm Powd.pack 17 Gm PO BID 30 Days Pepcid AC (Famotidine) 10 Mg Tablet 10 Mg PO BID WITH MEALS 30 Days Trazodone HCl 100 Mg Tablet 100 Mg PO HS 30 Days Assessment/Pt DC Instructions Follow up with primary provider within one week of discharge. Discharge Diet: Cardiac Diet Activity as Tolerated: Yes Discharge Physical Examination Allergies: Coded Allergies: aspirin (Verified Allergy, Severe, ANAPHYLAXIS, 04/07/19) erythromycin base (Verified Allergy, Mild, RASH, 04/07/19) tramadol (Unverified Allergy, Mild, VOMITING, 04/07/19) venom-wasp (Unverified Allergy, Mild, SWELLING, 04/07/19) sumatriptan (Verified Adverse Reaction, Mild, NAUSEA, 04/07/19) Vomits with oral form, no reaction with injectable form sumatriptan succinate (Verified Adverse Reaction, Mild, NAUSEA, 04/07/19) Vomits with oral form, no reaction with injectable form General Appearance: No Apparent Distress Respiratory: Lungs Clear, Normal Breath Sounds Cardiovascular: Regular Rate, Rhythm, No Murmur Extremity: No Pedal Edema Neurologic/Psychiatric: Alert, Normal Mood/Affect VEE THOMPSON MD Feb 22, 2021 10:23
[2021-02-22] MEDS ORDERED: ROSUVASTATIN 10 MG (CRESTOR) TABLET PO SCH (21:00)
[2021-02-22] MEDS ORDERED: AtorvaSTATin TABLET 10 MG TABLET PO SCH (21:00)
== END 2021-02-22 11:03 | disposition home or self-care (01) | DRG 313 ==
LOC: EDUNIT# 11:15 → ER 11:17 → CSD 14:36
PROVIDERS: ADMIT Family Medicine; ATTEND Family Medicine
DX: R07.9 Chest pain, unspecified (principal); R77.8 Other specified abnormalities of plasma proteins; F17.210 Nicotine dependence, cigarettes, uncomplicated; I10 Essential (primary) hypertension; F43.10 Post-traumatic stress disorder, unspecified; K22.70 Barrett's esophagus without dysplasia; F41.9 Anxiety disorder, unspecified; G43.909 Migraine, unspecified, not intractable, without status migrainosus; F32.A Depression, unspecified; J45.909 Unspecified asthma, uncomplicated; M06.9 Rheumatoid arthritis, unspecified; M41.9 Scoliosis, unspecified; G89.29 Other chronic pain; M54.9 Dorsalgia, unspecified; E78.2 Mixed hyperlipidemia; K21.00 Gastro-esophageal reflux disease with esophagitis, without bleeding
CPT/HCPCS: 36415; 71045; 78452; 80053; 80061; 83735; 83874; 84484; 85025; 85610; 85730; 93005; 93017; 93041; 93306; 94002; 94640

== ENCOUNTER 2021-05-12 05:30 | Outpatient (RCR) | payer MEDICAID ==
[~2021-05-12] VITALS: Ht 168.9 cm; Wt 89.6 kg
[~2021-05-12 05:30] MED LIST changes: +BUDE10.2 IH; +DULO60CA7 PO; +FAMO10TA43 PO; +LISI10TA25 PO; +MONT10TA21 PO; +MV-M1TAB57 PO; +POLY17PO6 PO; +QUET50TA4 PO; +ROSU10TA28 PO; +TRAZ-227 PO
== END 2021-05-15 06:50 | disposition home or self-care (01) ==
LOC: PREOP 05:30
PROVIDERS: ATTEND Surgery
DX: Z01.812 Encounter for preprocedural laboratory examination (principal); K21.9 Gastro-esophageal reflux disease without esophagitis; Z20.822 Contact with and (suspected) exposure to COVID-19; Z87.19 Personal history of other diseases of the digestive system
CPT/HCPCS: 87635

== ENCOUNTER 2021-05-16 10:49 | Day surgery (SDC) | payer MEDICAID ==
[~2021-05-16] VITALS: Ht 168.9 cm; Wt 89.6 kg
[2021-05-16] MEDS ORDERED: LACTATED RINGERS 1,000 ML IV ONE (11:02)
--- NOTE | 2021-05-16 11:15 | Progress Note-Pre Operative ---
Pre-Operative Progress Note H&P Reviewed The H&P was reviewed, patient examined and no changes noted. Date Seen by Provider: May 16, 2021 Time Seen by Provider: 11:15 Date H&P Reviewed: May 16, 2021 Time H&P Reviewed: 11:15 Pre-Operative Diagnosis: gerd, hx leyva's RENÉE LEON DO May 16, 2021 11:15
[2021-05-16 11:25] VITALS: BP 105/82
[2021-05-16] MEDS ORDERED: LACTATED RINGERS 1,000 ML IV STA (11:31)
[2021-05-16] MEDS ORDERED: MIDAZOLAM 2 MG/2 ML (VERSED) VIAL ONE (12:23)
[2021-05-16] MEDS ORDERED: PROPOFOL INJECTION 50 ML IV ONE (12:23)
[2021-05-16] MEDS: HURRICAINE EXT TUBE (BENZOCAINE) XX PRN (12:35)
[2021-05-16 13:00] VITALS: BP 97/63
[2021-05-16 13:05] VITALS: BP 95/64
--- NOTE | 2021-05-16 13:06 | Progress Note-Post Operative ---
Post-Operative Progess Note Surgeon (s)/Print Room Worker (s) Surgeon RENÉE LEON DO Print Room Worker: N/A Pre-Operative Diagnosis gerd, hx leyva's Post-Operative Diagnosis Hiatal hernia; Leyva's esophagus Procedure & Operative Findings Date of Procedure 05/16/21 Procedure Performed/Findings EGD with biopsies Anesthesia Type per FLOOR MOLDER Estimated Blood Loss Estimated blood loss (mL): none Specimens/Packing Specimens Removed antrum x1 and distal esophagus x12 RENÉE LEON DO May 16, 2021 13:06
[2021-05-16 13:07] VITALS: BP 95/64
--- NOTE | 2021-05-16 13:07 | Discharge Inst-Simple/Standard ---
Discharge Inst-Standard Patient Instructions/Follow Up Plan of Care/Instructions/FU: 2 weeks Brodie Activity as Tolerated: Yes Discharge Diet: Regular Diet RENÉE LEON DO May 16, 2021 13:07
[2021-05-16 13:30] VITALS: BP 90/75
--- NOTE | 2021-05-16 14:54 | Anesthesia-General Post-Op ---
MAC Patient Condition Mental Status/LOC: Same as Preop Cardiovascular: Satisfactory Nausea/Vomiting: Absent Respiratory: Satisfactory Pain: Controlled Complications: Absent Post Op Complications Complications None Follow Up Care/Instructions Patient Instructions None needed. Anesthesiology Discharge Order Discharge Order Patient is doing well, no complaints, stable vital signs, no apparent adverse anesthesia problems. No complications reported per nursing. CHRISTINE VAZQUEZ CRNA May 16, 2021 14:54
--- NOTE | 2021-05-16 17:02 | OPERATIVE REPORT ---
DATE OF SERVICE: 05/16/2021 PREOPERATIVE DIAGNOSES: 1. Gastroesophageal reflux disease. 2. History of Espinosa's. POSTOPERATIVE DIAGNOSES: 1. Hiatal hernia. 2. Espinosa's esophagus. PROCEDURE: EGD with biopsies. SURGEON: Renée Calloway DO ANESTHESIA: Per LINING FINISHER. ESTIMATED BLOOD LOSS: None. COMPLICATIONS: None. INDICATIONS: The patient is a 45-year-old female needing evaluation by EGD for her history of Espinosa's. She understands and wishes to proceed. Consent was signed in the chart. DESCRIPTION OF PROCEDURE: The patient was taken to endoscopy suite, placed in left recumbent position. Timeout was performed. Scope was inserted in mouth, down the esophagus, stomach and into the duodenum without difficulty. No polyps, masses or ulcerations within the duodenum. Scope was slowly retracted back in the stomach where it was further insufflated. No polyps, masses or ulcerations. Biopsy of the antrum was obtained. Scope was retroflexed noting a small hiatal hernia. Scope was returned to its normal position, slowly withdrawn to distal esophagus, changes of Espinosa's present. Four quadrant biopsies were obtained for a total of 12 biopsies. Scope was then slowly retracted back until completely removed. The patient tolerated the procedure well without any complications, taken to recovery room in stable condition. RECOMMENDATIONS: The patient will continue on current medications. She will follow up in 2 weeks to discuss pathology results. We will likely repeat EGD in 2 to 3 years. Job ID: [id number] DocumentID: [id number] Dictated Date: 05/16/2021 13:09:13 Melter Caster Date: 05/16/2021 17:01:31 Dictated By: RENÉE CALLOWAY DO
== END 2021-05-16 13:40 | disposition home or self-care (01) ==
LOC: ENDO 10:49
PROVIDERS: ATTEND Surgery
DX: K22.70 Barrett's esophagus without dysplasia (principal); K44.9 Diaphragmatic hernia without obstruction or gangrene; K21.9 Gastro-esophageal reflux disease without esophagitis; I10 Essential (primary) hypertension; K31.A15 Gastric intestinal metaplasia without dysplasia, involving multiple sites; J45.909 Unspecified asthma, uncomplicated; F32.A Depression, unspecified; F17.210 Nicotine dependence, cigarettes, uncomplicated; Z86.73 Personal history of transient ischemic attack (TIA), and cerebral infarction without residual deficits; Z79.899 Other long term (current) drug therapy

== ENCOUNTER 2022-04-20 19:51 | Emergency (ER) | payer MEDICAID ==
[~2022-04-20] VITALS: Ht 168 cm; Wt 85.0 kg
[~2022-04-20 19:51] MED LIST changes: +ALBU8.5H6 IH; -RT-ALBUINH IH
[2022-04-20 20:10] VITALS: BP 141/91
--- NOTE | 2022-04-20 20:36 | ED Upper Extremity ---
General Chief Complaint: Upper Extremity Stated Complaint: RIGHT ARM PAIN Nursing Triage Note: PT AMB TO ED BY POV WITH C/O R ARM PAIN X 1 WEEK. PT DENIES INJURY. DESCRIBES PAIN BURNING SENSATION THROUGH ENTIRE ARM, WORSE WITH MOVEMENT. PT HAS TRIED TAKING TYLENOL, ALEVE, AND IBUPROFEN WITHOUT ANY RELIEF. Source: patient, family Exam Limitations: no limitations History of Present Illness Date Seen by Provider: Apr 20, 2022 Time Seen by Provider: 20:35 Initial Comments To ER by private vehicle with reports of right arm pain for 1 week. The pain involves the upper arm the forearm and the wrist. No pain in the neck or between the neck and the shoulder. Movement of the neck and shoulder do not worsen her pain. Full extension of the right elbow does worsen the pain significantly. Pain is primarily in the forearm but to a lesser degree the upper arm. From the distal forearm all the way down to all of her fingertips she has a burning sensation. She has had neuropathy before and has tried gabapentin without any relief. Onset: just prior to arrival Severity: moderate (Is already back) Allergies and Home Medications Allergies Coded Allergies: aspirin (Verified Allergy, Severe, ANAPHYLAXIS, 04/07/19) erythromycin base (Verified Allergy, Mild, RASH, 04/07/19) tramadol (Unverified Allergy, Mild, VOMITING, 04/07/19) venom-wasp (Unverified Allergy, Mild, SWELLING, 04/07/19) sumatriptan (Verified Adverse Reaction, Mild, NAUSEA, 04/07/19) Vomits with oral form, no reaction with injectable form sumatriptan succinate (Verified Adverse Reaction, Mild, NAUSEA, 04/07/19) Vomits with oral form, no reaction with injectable form Patient Home Medication List Home Medication List Reviewed: Yes Albuterol Sulfate (Ventolin Hfa) 1 Puff Puff, 2 PUFF IH Q4H, (Reported) Entered as Reported by: SALONI DOWLING on 02/21/21 1633 Budesonide/Formoterol Fumarate (Symbicort 160-4.5 Mcg Inhaler) 10.2 Gm Hfa.aer.ad, 2 PUFF IH BID, (Reported) Entered as Reported by: KRISTEL KITCHEN on 05/08/21 1349 Duloxetine HCl (Cymbalta) 60 Mg Capsule.dr, 60 MG PO DAILY, (Reported) Entered as Reported by: KRISTEL KITCHEN on 05/08/21 1352 Lisinopril (Lisinopril) 10 Mg Tablet, 10 MG PO HS, (Reported) Entered as Reported by: KRISTEL KITCHEN on 05/08/21 1352 Montelukast Sodium (Singulair) 10 Mg Tablet, 10 MG PO DAILY, (Reported) Entered as Reported by: KRISTEL KITCHEN on 05/08/21 1352 Mv-Mn/Folic Acid/Calcium/Vit K (Women's 50 Plus Multivit Tab) 1 Each Tablet, 1 EACH PO DAILY, (Reported) Entered as Reported by: KRISTEL KITCHEN on 05/08/21 1352 Pantoprazole Sodium (Protonix) 40 Mg Tablet.dr, 40 MG PO BID Prescribed by: VEE THOMPSON on 02/22/21 1021 Quetiapine Fumarate (Seroquel Xr) 50 Mg Tab.er.24h, 50 MG PO HS, (Reported) Entered as Reported by: KRISTEL KITCHEN on 05/08/21 1352 Rosuvastatin Calcium (Rosuvastatin Calcium) 10 Mg Tablet, 20 MG PO HS Prescribed by: KRISTEL KITCHEN on 05/08/21 1349 Review of Systems Constitutional: see HPI Past Tyervph-Lsfspu-Csqxkq Hx Patient Social History Tobacco Use?: Yes Tobacco type used: Cigarettes Smoking Status: Current Everyday Smoker Use of E-Cig and/or Vaping dev: No Substance use?: No Alcohol Use?: No Pt feels they are or have been: No Immunizations Up To Date Tetanus Booster (TDap): Less than 5yrs Influenza Vaccine Up-to-Date: Yes; Up-to-Date First/Initial COVID19 Vaccinat: 07/2020 Second COVID19 Vaccination Tobi: 09/25/2020 Third COVID19 Vaccination Date: PFIZER 04/06/21 Seasonal Allergies Seasonal Allergies: Yes Past Medical History Surgery/Hospitalization HX: HTN, DEPRESSION Surgeries: Yes (DENTAL SX, ANTERIOR REPAIR) Abdominal, Appendectomy, Bladder Surgery, Gallbladder, 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, Oophorectomy, Tubal Ligation Respiratory: Yes Asthma Currently Using CPAP: No Currently Using BIPAP: No Cardiac: Yes Hypertension Neurological: Yes Headaches /Migraines, Stroke 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 Disorders: No 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 Sexually Transmitted Disease: No HIV/AIDS: No Genitourinary: No Gastrointestinal: Yes (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) Gastroesophageal Reflux, Espinosa's Esophagus, Chronic Diarrhea, Ulcer Musculoskeletal: Yes Rheumatoid Arthritis, Scoliosis, Chronic Back Pain Endocrine: No (BORDERLINE- DIET CONTROLLED) HEENT: Yes (READING GLASSES) Loss of Vision: Denies Hearing Impairment: Denies Cancer: Yes Cervical, Ovarian, Uterine Did You Recieve Any Treatments: Yes What Type of Treatment Did You: Chemotherapy, Radiation, Surgical Intervention Psychosocial: Yes Anxiety, Depression Integumentary: No Blood Disorders: Yes (ANEMIA) Adverse Reaction/Blood Tranf: No (HAS HAD BLOOD WITH NO REACTION) Family Medical History Alcoholism 19 FATHER Cardiovascular disease 19 FATHER Dementia 19 MOTHER Drug abuse 19 FATHER FH: cancer 19 FATHER 19 MOTHER (ESPHAGUS) Myocardial infarction 19 FATHER Psychosocial problem 19 FATHER Thyroid disease 19 MOTHER G8 BROTHER G8 SISTER No Family History of: AIDS Alzheimer's disease Arthritis Asthma Cancer of mouth Cataracts Colon cancer Completed stroke Diabetes mellitus Glaucoma Hypertension Kidney disease Parkinson's disease Prostate cancer Respiratory disorder Seizure disorder Severe allergy Tuberculosis Cancer, CAD Under 55 Years Old, Stroke, Other Conditions/Hx Physical Exam Vital Signs Vital Signs - First Documented 04/20/22 20:10 Temp 36.8 Pulse 92 Resp 16 B/P (MAP) 141/91 (108) Pulse Ox 97 O2 Delivery Room Air Capillary Refill : Less Than 3 Seconds Height, Weight, BMI Height: 5'7.00" Weight: 211lbs. 4.0oz. [id number]; 30.00 BMI Method:Stated General Appearance: WD/WN, no apparent distress HEENT: PERRL/EOMI, normal ENT inspection Neck: non-tender, full range of motion Respiratory: no respiratory distress, no accessory muscle use Gastrointestinal: normal bowel sounds, non tender Shoulder: normal inspection, non-tender Elbow/Forearm: normal inspection, non-tender Wrist: Yes normal inspection, Yes non-tender Neurologic/Psychiatric: alert, normal mood/affect, oriented x 3 Skin: normal color, warm/dry Procedures/Interventions Date of ETT Placement: Feb 21, 2021 Progress/Results/Core Measures Results/Orders My Orders Orders - JADA JOHANSEN APRN Prednisone Tablet (Deltasone Tablet) (04/20/22 20:45) Rx-Hydrocodone/Apap 5-325 Mg (Rx-Vicodin (04/20/22 20:45) Vital Signs/I&O 04/20/22 20:10 Temp 36.8 Pulse 92 Resp 16 B/P (MAP) 141/91 (108) Pulse Ox 97 O2 Delivery Room Air Blood Pressure Mean: 108 Departure Impression Primary Impression: Neuropathic pain of right forearm Disposition: HOME, SELF-CARE Condition: Stable Departure-Patient Inst. Decision time for Depature: 20:45 Referrals: [facility] (PCP/Family) Primary Care Physician Patient Instructions: Acute Pain, Adult (DC) Add. Discharge Instructions: If pain persists beyond this next week follow-up with primary care to discuss an MRI of the right elbow. Steroids and pain medication as directed in the meantime. All discharge instructions reviewed with patient and/or family. Voiced unde rstanding. Scripts Prednisone (Prednisone) 20 Mg Tab 40 MG PO DAILY, #4 TAB 0 Refills Prov: JADA JOHANSEN APRN 04/20/22 Hydrocodone/Acetaminophen (Hydrocodone-Acetamin 5-325 mg) 5 Mg-325 Mg Tablet 1 TAB PO Q4H PRN for PAIN-MODERATE (5-7), #10 TAB Prov: JADA JOHANSEN APRN 04/20/22 JADA JOHANSEN APRN Apr 20, 2022 20:36
[2022-04-20] MEDS ORDERED: predniSONE 20 MG TAB PO ONE (20:45)
[2022-04-20] MEDS ORDERED: PRD20T PO (20:47)
[2022-04-20] MEDS ORDERED: ACHD5005 PO (20:47)
== END 2022-04-20 20:53 | disposition home or self-care (01) ==
LOC: EDUNIT# 19:51 → ER 19:53
DX: G56.91 Unspecified mononeuropathy of right upper limb (principal); F17.210 Nicotine dependence, cigarettes, uncomplicated; Z88.5 Allergy status to narcotic agent; Z88.6 Allergy status to analgesic agent
CPT/HCPCS: 99283

== ENCOUNTER → 2022-06-27 | Outpatient (CLI) | payer MEDICAID ==
[~2022-06-27] MED LIST changes: +GADOTERATE 0.5 MMOL/ML (CLARISCAN) 20 ML VIAL IV ONE
--- NOTE | 2022-06-27 10:55 | Diagnostic Imaging Report ---
CLINICAL INDICATIONS: Patient with cervical spine pain on right side. Possible multiple sclerosis. EXAM: MRI of the cervical spine performed without and with 18 mL of Clariscan IV contrast. Multiplanar, multisequence imaging is obtained. COMPARISON: CT angiogram of head/neck dated 10/17/2020. FINDINGS: There is no abnormal IV contrast enhancement. There is no enhancing mass seen. There is no acute cervical spine fracture or dislocation. Limited visualization of posterior fossa is unremarkable. There is localized encroachment upon the cervical cord with severe deformity seen at the C5-C6 region due to disk disease. There is no definite cord signal abnormality is visualized. There is no significant paraspinal soft tissue abnormality. There is cervical spine vertebral body spurs and facet arthropathy. C1-C2: There are degenerative spurs involving the atlantoodontoid interval anteriorly. There is mild central canal narrowing due to prominence of the posterior elements. C2-C3: Unremarkable. C3-C4: Unremarkable. C4-C5: There is a mild diffuse disk bulge. There is mild central canal stenosis. C5-C6: There is diffuse disk bulge with moderate to severe loss of disk space height. There is a moderate sized broad posterior disk herniation and disk spurs and bilateral uncinate spurs. There is mild bilateral facet arthropathy. There is severe central canal stenosis with effacement of the thecal sac. There is severe bilateral neural foramen narrowing. C6-C7: There is a diffuse disk bulge with mild to moderate loss of disk space height. There is ligament flavum buckling and small bilateral uncinate spurs. There is moderate central canal stenosis. There is severe left neural foramen narrowing and moderate right neural foramen narrowing. C7-T1: There is a small right paracentral disk bulge. There is no significant central canal narrowing. There is mild right neural foramen narrowing. There is no significant left neural foramen narrowing. IMPRESSION: 1: There is C5-C6 diffuse disk bulge with superimposed moderate posterior disk herniation with disk spurs and bilateral uncinate spurs. There is associated severe central canal stenosis and severe bilateral neural foramen narrowing. There is severe encroachment and deformity of the cervical cord at this level with no definite abnormal cord signal. 2: There is moderate central canal stenosis at C6-C7 level due to diffuse disk bulge and disk spurs. 3: There is no definite cord signal abnormality and no evidence of demyelinating process. Dictated by: Dictated on workstation # [id number]
== END ==
LOC: RAD 09:30
PROVIDERS: ATTEND Nurse Practitioner
DX: M50.122 Cervical disc disorder at C5-C6 level with radiculopathy (principal); M48.02 Spinal stenosis, cervical region; M77.8 Other enthesopathies, not elsewhere classified
CPT/HCPCS: 72156

== ENCOUNTER 2023-03-01 22:44 | Emergency (ER) | payer MEDICAID, OTHER ==
[~2023-03-01] VITALS: Ht 167.7 cm; Wt 88.0 kg
[~2023-03-01 22:44] MED LIST changes: -GADOTERATE 0.5 MMOL/ML (CLARISCAN) 20 ML VIAL IV ONE; +MONT-47 PO; -MONT10TA21 PO
[2023-03-01] MEDS ORDERED: RX-CYCLOBENZAPRINE 10 MG (FLEXERIL) TAB PPK#3 PO STA (23:42)
[2023-03-01] MEDS ORDERED: RX-NAPROXEN (NAPROSYN) 250 MG TAB PPK#4 PO STA (23:42)
[2023-03-01] MEDS ORDERED: NAPR500T8 PO (23:45)
[2023-03-01] MEDS ORDERED: CYCL10TA25 PO (23:45)
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
[2023-03-01 23:59] VITALS: BP 118/85
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
== END 2023-03-02 | disposition home or self-care (01) ==
LOC: EDUNIT# 22:44 → ER 22:45
DX: S16.1XXA Strain of muscle, fascia and tendon at neck level, initial encounter (principal); F17.210 Nicotine dependence, cigarettes, uncomplicated; Z88.6 Allergy status to analgesic agent; V89.2XXA Person injured in unspecified motor-vehicle accident, traffic, initial encounter; X50.1XXA Overexertion from prolonged static or awkward postures, initial encounter; Y92.410 Unspecified street and highway as the place of occurrence of the external cause
CPT/HCPCS: 70450; 72125